=== PATIENT | male | born 1940 | race Caucasian/White ===

== ENCOUNTER → 2016-12-05 | Outpatient (CLI) | payer MEDICARE, BC ==
[2016-12-05 11:43] LABS: CH 33.1; CHCM 33.4; HCT 52.6 % (39.0-53.0); HDW 2.67; HGB 16.9 gm/dL (13.0-17.5); MCH 32.1 pg (25.0-35.0); MCHC 32.2 g/dL (31.0-37.0); MCV 99.7 fL (80.0-100.0); Mean Platelet Volume 9.1; RBC 5.28 m/uL (4.30-5.90); RDW 13.7 % (11.5-15.5)
[2016-12-05 11:50] LABS: INR 1.6 (<1.1); Prothrombin Time 15.3 sec (9.0-12.0)
[2016-12-05 12:16] LABS: Anion Gap 9 mmol/L; Blood Urea Nitrogen 22 mg/dL (9-20); Carbon Dioxide 28 mmol/L (22-30); Chloride 106 mmol/L (98-107); Non-African American GFR(MDRD) 59 (>60 ml/min/1.73 sqM); Potassium 4.9 mmol/L (3.5-5.1); Sodium 143 mmol/L (137-145)
== END | disposition home or self-care (01) ==
LOC: LABWHC1 11:26
PROVIDERS: ATTEND Internal Medicine Cardiovascular Disease
DX: I48.3 Typical atrial flutter (principal)
CPT/HCPCS: 36415; 80051; 82565; 84443; 84520; 85027; 85610

== ENCOUNTER 2017-01-30 06:15 | Day surgery (SDC) | payer MEDICARE, BC ==
[2017-01-26 15:12] VITALS: BMI 26.2
[2017-01-30] MEDS ORDERED: SODIUM CHLORIDE 0.9% 1,000 ML IV SCH ×2 (06:29→07:45)
[2017-01-30 06:51] VITALS: TEMP 98.7
[2017-01-30 07:25] LABS: Anion Gap 11 mmol/L; Blood Urea Nitrogen 20 mg/dL (9-20); Calcium 7.8 mg/dL (8.4-10.2); Carbon Dioxide 23 mmol/L (22-30); Chloride 97 mmol/L (98-107); Glucose 111 mg/dL (74-99); Non-African American GFR(MDRD) 55 (>60 ml/min/1.73 sqM); Potassium 3.7 mmol/L (3.5-5.1); Sodium 131 mmol/L (137-145)
[2017-01-30 07:27] LABS: INR 2.1 (<1.2); Prothrombin Time 19.9 sec (9.0-12.0)
[2017-01-30] MEDS ORDERED: PROPOFOL 10 MG/ML 20 ML VIAL IV ONE (07:27)
[2017-01-30] MEDS ORDERED: LIDOCAINE 1% INJ 10MG/ML (20 ML MDV) ONE (07:27)
--- NOTE | 2017-01-30 08:07 | ECHOT ---
INDICATIONS: Chronic atrial fibrillation. PROCEDURE NOTE: After obtaining informed consent, transesophageal echocardiogram was performed in left lateral position using an Omniplane probe. Local and IV sedation were obtained by the soccer commentator. FINDINGS: 1. There is no intracardiac thrombus in the left atrial appendage, left atrium, right atrium, right ventricle. 2. There is a normally functioning bioprosthetic valve in ( ) position. 3. Mitral valve is anatomically normal. There is mild to moderate ( ) mitral regurgitation noted. 4. 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 5. There is mild tricuspid regurgitation noted. 6. Aorta shows mild atherosclerotic changes. CONCLUSIONS: 1. No intracardiac thrombus. 2. Normally functioning bioprosthetic valve in ( ) position. 3. Evidence of left to right shunt by color flow doppler. [facility]
--- NOTE | 2017-01-30 08:10 | CE ---
CARDIOVERSION: After obtaining informed consent, the patient was anesthetized by the plant operator/shift supervisor and the patient underwent 200 joules of DC current shock. Following a single shock, the patient went into sinus rhythm. He was intermittently going in and out of sinus. We will obtain an EKG and see if he still remains in sinus rhythm. If he does not, then one option we have is to start him on Amiodarone and bring him back and attempt another cardioversion. I do not see the point, I will attempt another cardioversion on him. SARITA
[2017-01-30 08:14] VITALS: RESP 16
[2017-01-30] MEDS ORDERED: AMIODARONE 200 MG TAB PO SCH (09:00)
[2017-01-30 09:50] VITALS: BP 118/75; PULSE 76
== END 2017-01-30 09:34 | disposition home or self-care (01) ==
LOC: CATHCVL 06:15
PROVIDERS: ATTEND Internal Medicine Cardiovascular Disease
DX: I48.3 Typical atrial flutter (principal); I08.3 Combined rheumatic disorders of mitral, aortic and tricuspid valves; Z79.01 Long term (current) use of anticoagulants; I10 Essential (primary) hypertension; Z95.2 Presence of prosthetic heart valve; Z79.82 Long term (current) use of aspirin; Z79.899 Other long term (current) drug therapy
CPT/HCPCS: 93312; 93320; 93005; 93325; 92960; 80048; 85610; J2001; J2704

== ENCOUNTER 2018-06-04 15:15 | Inpatient (IN) | payer MEDICARE, BC ==
[2018-06-04] MEDS ORDERED: SODIUM CHLORIDE 0.9% 1,000 ML IV STA (15:42)
--- NOTE | 2018-06-04 15:46 | ED ---
Syncope HPI - General Chief Complaint: Syncope Stated Complaint: syncope Time Seen by Provider: 06/04/18 15:15 Source: patient, family, RN notes reviewed Mode of arrival: EMS Limitations: no limitations - History of Present Illness Initial Comments: This is a 77-year-old male history of heart valve replacement who was shopping with his today when he felt suddenly very tired he sat down on a bench and passed out for about a total of 2 episodes of 30 seconds each no seizure activity. No headache dizziness blurry fevers chills sweats or other symptoms. He denies any headache prior episodes of syncope no palpitations. MD Complaint: loss of consciousness - Related Data Home Medications Medication Instructions Recorded Confirmed Aspirin 325 mg PO HS 01/26/17 06/04/18 Metoprolol Tartrate [Lopressor] 25 mg PO DAILY 01/26/17 06/04/18 Warfarin [Coumadin] 5 mg PO DAILY 01/26/17 06/04/18 amLODIPine [Norvasc] 10 mg PO DAILY 01/26/17 06/04/18 Allergies Allergy/AdvReac Type Severity Reaction Status Date / Time No Known Allergies Allergy Verified 06/04/18 15:49 Review of Systems ROS Statement: Those systems with pertinent positive or pertinent negative responses have been documented in the HPI. ROS Other: All systems not noted in ROS Statement are negative. Past Medical History Past Medical History: Atrial Fibrillation, Hearing Disorder / Deafness, Hyperlipidemia, Hypertension History of Any Multi-Drug Resistant Organisms: None Reported Past Surgical History: Cardiac Valve Replacement Additional Past Surgical History / Comment(s): AORTIC (COW) VALVE REPLACED 2007. CARDIOVERSION 2007. Past Anesthesia/Blood Transfusion Reactions: No Reported Reaction Past Psychological History: No Psychological Hx Reported Smoking Status: Never smoker Past Alcohol Use History: Daily Past Drug Use History: None Reported - Past Family History Mother Family Medical History: No Reported History General Exam - General Exam Comments Initial Comments: This a well-developed well-nourished awake alert oriented times 3 male Limitations: no limitations General appearance: alert, in no apparent distress Head exam: Present: atraumatic, normocephalic, normal inspection Eye exam: Present: normal appearance, PERRL, EOMI. Absent: scleral icterus, conjunctival injection, periorbital swelling ENT exam: Present: mucous membranes dry Neck exam: Present: normal inspection. Absent: tenderness, meningismus, lymphadenopathy Respiratory exam: Present: normal lung sounds bilaterally. Absent: respiratory distress, wheezes, rales, rhonchi, stridor Cardiovascular Exam: Present: regular rate, normal rhythm, normal heart sounds. Absent: systolic murmur, diastolic murmur, rubs, gallop, clicks GI/Abdominal exam: Present: soft, normal bowel sounds. Absent: distended, tenderness, guarding, rebound, rigid Rectal exam: Present: heme (+) stool, black stool exam: Present: normal inspection Extremities exam: Present: normal inspection, full ROM, normal capillary refill. Absent: tenderness, pedal edema, joint swelling, calf tenderness Back exam: Present: normal inspection Neurological exam: Present: alert, oriented X3, CN II-XII intact Psychiatric exam: Present: normal affect, normal mood Skin exam: Present: warm, dry, intact, normal color. Absent: rash Course Vital Signs 06/04/18 06/04/18 06/04/18 15:17 15:24 16:00 Temperature 97.5 F L Pulse Rate 67 75 Respiratory 18 22 Rate Blood Pressure 111/75 117/78 O2 Sat by Pulse 95 92 L 95 Oximetry 06/04/18 06/04/18 17:00 18:00 Temperature Pulse Rate 70 69 Respiratory 20 20 Rate Blood Pressure 145/93 123/83 O2 Sat by Pulse 95 95 Oximetry - Reevaluation(s) Reevaluation #1: 06/04/18 19:19 Reevaluation patient revealed no further symptoms he did however have a black bowel movement which did test heme positive. He does have elevated BUN. She does have a prior history of GI bleeding he believes been was never diagnosed with an ulcer. EKG Findings - EKG Results: EKG: interpreted by ERMD, sinus rhythm (Sinus rhythm first-degree AV block with PACs noted rate was 65. OK interval to 46 QRS duration 108 QT since QTC 444/ 461 evidence of LVH.) Medical Decision Making - Medical Decision Making I did discuss findings with the patient and his as well as with Dr. Robison, patient will be admitted cardiology consult and serial hemoglobins. - Lab Data Result diagrams: 06/04/18 15:30 06/04/18 15:30 Lab Results 06/04/18 06/04/18 06/04/18 Range/Units 14:35 15:30 15:30 WBC 7.4 (3.8-10.6) k/uL RBC 4.22 L (4.30-5.90) m/uL Hgb 13.6 (13.0-17.5) gm/dL Hct 41.0 (39.0-53.0) % MCV 97.3 (80.0-100.0) fL MCH 32.2 (25.0-35.0) pg MCHC 33.1 (31.0-37.0) g/dL RDW 13.9 (11.5-15.5) % Plt Count 132 L (150-450) k/uL Neutrophils % 76 % Lymphocytes % 15 % Monocytes % 7 % Eosinophils % 1 % Basophils % 0 % Neutrophils # 5.6 (1.3-7.7) k/uL Lymphocytes # 1.1 (1.0-4.8) k/uL Monocytes # 0.5 (0-1.0) k/uL Eosinophils # 0.1 (0-0.7) k/uL Basophils # 0.0 (0-0.2) k/uL PT (9.0-12.0) sec INR (<1.2) APTT (22.0-30.0) sec Sodium (137-145) mmol/L Potassium (3.5-5.1) mmol/L Chloride (98-107) mmol/L Carbon Dioxide (22-30) mmol/L Anion Gap mmol/L BUN (9-20) mg/dL Creatinine (0.66-1.25) mg/dL Est GFR (CKD-EPI)AfAm (>60 ml/min/1.73 sqM) Est GFR (CKD-EPI)NonAf (>60 ml/min/1.73 sqM) Glucose (74-99) mg/dL Calcium (8.4-10.2) mg/dL Magnesium (1.6-2.3) mg/dL Total Bilirubin (0.2-1.3) mg/dL AST (17-59) U/L ALT (21-72) U/L Alkaline Phosphatase (38-126) U/L Total Creatine Kinase 65 (55-170) U/L CK-MB (CK-2) 1.1 (0.0-2.4) ng/mL CK-MB (CK-2) Rel Index 1.7 Troponin I 0.012 (0.000-0.034) ng/mL Total Protein (6.3-8.2) g/dL Albumin (3.5-5.0) g/dL Stool Occult Blood Positive (Negative) 06/04/18 06/04/18 Range/Units 15:30 15:30 WBC (3.8-10.6) k/uL RBC (4.30-5.90) m/uL Hgb (13.0-17.5) gm/dL Hct (39.0-53.0) % MCV (80.0-100.0) fL MCH (25.0-35.0) pg MCHC (31.0-37.0) g/dL RDW (11.5-15.5) % Plt Count (150-450) k/uL Neutrophils % % Lymphocytes % % Monocytes % % Eosinophils % % Basophils % % Neutrophils # (1.3-7.7) k/uL Lymphocytes # (1.0-4.8) k/uL Monocytes # (0-1.0) k/uL Eosinophils # (0-0.7) k/uL Basophils # (0-0.2) k/uL PT 15.9 H (9.0-12.0) sec INR 1.7 H (<1.2) APTT 19.4 L (22.0-30.0) sec Sodium 140 (137-145) mmol/L Potassium 4.7 (3.5-5.1) mmol/L Chloride 110 H (98-107) mmol/L Carbon Dioxide 22 (22-30) mmol/L Anion Gap 8 mmol/L BUN 33 H (9-20) mg/dL Creatinine 1.25 (0.66-1.25) mg/dL Est GFR (CKD-EPI)AfAm 64 (>60 ml/min/1.73 sqM) Est GFR (CKD-EPI)NonAf 56 (>60 ml/min/1.73 sqM) Glucose 116 H (74-99) mg/dL Calcium 8.5 (8.4-10.2) mg/dL Magnesium 1.9 (1.6-2.3) mg/dL Total Bilirubin 0.6 (0.2-1.3) mg/dL AST 21 (17-59) U/L ALT 27 (21-72) U/L Alkaline Phosphatase 45 (38-126) U/L Total Creatine Kinase (55-170) U/L CK-MB (CK-2) (0.0-2.4) ng/mL CK-MB (CK-2) Rel Index Troponin I (0.000-0.034) ng/mL Total Protein 6.0 L (6.3-8.2) g/dL Albumin 3.3 L (3.5-5.0) g/dL Stool Occult Blood (Negative) - Radiology Data Radiology results: report reviewed (Imaging reviewed no acute findings), image reviewed Critical Care Time Critical Care Time: Yes Critical Care Time: 33 visits of critical care time which includes discussed with paramedics history physical labs x-rays several reevaluation the patient. Discussed with the patient family regarding the findings discussion with the admitting physician admission orders and documentation of the above. Disposition Clinical Impression: Syncope and collapse, Upper GI bleed, Melena Disposition: ADMITTED IP TO THIS [facility] Condition: Stable Referrals: Rayo Robison MD [Primary Care Provider] - 1-2 days
[2018-06-04 16:17] LABS: Basophils % (A) 0 %; Eosinophils # (A) 0.1 k/uL (0-0.7); Eosinophils % (A) 1 %; HGB 13.6 gm/dL (13.0-17.5); Lymphocytes # (A) 1.1 k/uL (1.0-4.8); Lymphocytes % (A) 15 %; MCH 32.2 pg (25.0-35.0); MCHC 33.1 g/dL (31.0-37.0); MCV 97.3 fL (80.0-100.0); Mean Platelet Volume 8.7; Monocytes # (A) 0.5 k/uL (0-1.0); Monocytes % (A) 7 %; Neutrophils # (A) 5.6 k/uL (1.3-7.7); Neutrophils % (A) 76 %; Platelet Count 132 k/uL (150-450); RBC 4.22 m/uL (4.30-5.90); RDW 13.9 % (11.5-15.5); WBC 7.4 k/uL (3.8-10.6)
--- NOTE | 2018-06-04 16:28 | XR ---
EXAMINATION TYPE: XR chest 2V DATE OF EXAM: 06/04/2018 COMPARISON: 12/05/2011 HISTORY: Shortness of breath TECHNIQUE: Frontal and lateral views of the chest are obtained. FINDINGS: Scattered senescent parenchymal changes noted. Chronic elevation right hemidiaphragm. No evidence for infiltrate. No evidence for atelectasis. Heart size is enlarged. Mediastinal structures are stable and grossly unremarkable. No evidence for hilar prominence. Degenerative changes dorsal spine. IMPRESSION: 1. No evidence for acute pulmonary disease.
[2018-06-04 16:33] LABS: Albumin 3.3 g/dL (3.5-5.0); Calcium 8.5 mg/dL (8.4-10.2); Magnesium 1.9 mg/dL (1.6-2.3); Potassium 4.7 mmol/L (3.5-5.1); Total Bilirubin 0.6 mg/dL (0.2-1.3)
[2018-06-04 16:39] LABS: INR 1.7 (<1.2); Prothrombin Time 15.9 sec (9.0-12.0)
[2018-06-04 16:46] LABS: Creatine Kinase MB 1.1 ng/mL (0.0-2.4); Troponin I 0.012 ng/mL (0.000-0.034)
[2018-06-04 16:47] LABS: Partial Thromboplastin Time 19.4 sec (22.0-30.0)
--- NOTE | 2018-06-04 17:36 | CT ---
EXAMINATION: CT brain wo con DATE AND TIME: 06/04/2018 4:56 PM CLINICAL INDICATION: syncope TECHNIQUE: Standard departmental protocol. COMPARISON: None. FINDINGS: The calvarium is intact. There is no intracranial hemorrhage. There is no intracranial mass or mass effect. No definite new intra-axial or extra-axial attenuation defect. The paranasal sinuses, middle ear cavities, and mastoid sinus air cells are clear. The orbits are unremarkable. IMPRESSION: NO ACUTE PROCESS.
[2018-06-04] MEDS ORDERED: PHYTONADIONE ORAL 5 MG/5 ML ORAL.SYRG PO STA (19:22)
[2018-06-04] MEDS ORDERED: NALOXONE 0.4 MG/ML 1 ML VIAL IV PRN (19:23)
[2018-06-04] MEDS ORDERED: PANTOPRAZOLE 40 MG/10 ML VIAL IVP SCH (19:30)
--- NOTE | 2018-06-04 19:44 | P.HPIM ---
History of Present Illness Chief complaint Weakness and syncopal episode. History of present illness The patient is a 77-year-old gentleman who apparently was shopping earlier with his at a local store when he became somewhat weak and lightheaded and went to sit down. When he sat down he leaned against someone sitting next to him and according to his when she came over he was hard to arouse eventually he did arouse and acknowledged her but then once again passed out for 20-30 seconds. There is no evidence of any seizure activity or shortness of breath or chest pain associated with this. No nausea or vomiting. No slurred speech or focal weakness was noted. The had the EMS called and they transported the patient to adhere to the emergency room. Here in the emergency room the patient is generally felt better but did pass melanotic dark stool that was positive for occult blood. Patient had ate well that morning and felt normal. Further questioning reveals the patient has continued somewhat frequent alcohol intake consisting of several beers and shots in the evenings. Patient is also on aspirin and warfarin. Past medical history Patient has history of aortic bovine valve replacement in approximately 2007. He also has history of paroxysmal atrial fibrillation and did have a cardioversion performed in 2018. Patient is remaining on Coumadin and aspirin therapy. Patient also has history of hyperlipidemia and hypertension. Patient is followed by cardiology locally. No definite history of myocardial infarction or diabetes or stroke. Patient did have a upper endoscopy and colonoscopy approximately 10 years ago showing some focal gastritis and a few scattered diverticula but no other abnormalities at that time. Home medications Aspirin 325 mg daily Metoprolol 25 mg daily Coumadin 5 mg daily Amlodipine 10 mg daily No known ALLERGIES Review of systems As mentioned in the history of present illness. Patient denies any headaches or visual disturbances. No focal weakness noted. No slurred speech. No chest pain or unusual shortness of breath. Denies any abdominal pain. No nausea or vomiting. No new urinary or bowel symptoms although he does have some frequent urination. His bowel see states have been normal until the last one in the emergency room which showed melena and positive for occult blood. No unusual distal edema. No previous syncopal episodes or evidence of any seizures. No urinary incontinence. Family history Father had lung cancer. Also father had rheumatoid arthritis. Social history Alcohol usage as mentioned above. No history of smoking. Patient is presently retired and lives locally with his . Physical examination Reveals a pleasant gentleman lying flat on the stretcher in the emergency room. Vital signs reveal a pulse of 69 with respirations 20 and blood pressure 123/ 83. He is 95% saturated on 2 L. Temperature 97.5 Head is atraumatic. Extraocular movements are intact. Pupils are equal and reactive. Neck is not stiff. No adenopathy or bruits detected. No thyromegaly. Lungs are clear to auscultation. Heart slightly irregular with rate control. No definite murmurs or rubs appreciated. Abdomen is somewhat protuberant. Generally though soft and nontender without rebound, guarding or masses detected. No definite organomegaly. Scrotal and rectal exam deferred. No unusual edema. Neurologically he is alert and oriented. Cranial nerves intact. No focal weakness noted. Laboratory White count is 7.4 with a hemoglobin 13.6 and a platelet count of 132. INR was 1.7 with a PTT of 19.4. Sodium was 140 with potassium 4.7. CO2 content of 22. BUN is elevated at 33 with a creatinine 1.25 given him a GFR of 56. Blood sugar 116. Liver function tests were good. Albumin though slightly low at 3.3. Troponin was 0.012 with a CK of 65 Stool for occult blood is positive. And appearance in the ER was melanotic. Chest x-ray: No evidence of acute pulmonary disease CT of the brain: No acute process. EKG, showed a sinus rhythm with a first-degree AV block. PACs noted. Apparent hypertrophy with repolarization abnormalities noted. No definite ischemic changes noted. Impressions: 1. Likely syncopal episode related to upper GI bleeding and acute blood loss with guaiac positive stool that was melanotic. Cannot completely rule out arrhythmia other cardiac cause but so far no definite evidence at this time. 2. Patient with history of paroxysmal atrial fibrillation on Coumadin and aspirin. 3. Patient also has history of bovine aortic valve replacement 10 years ago. 4. Patient does have history of rather steady alcohol intake as described above possibly contributing to #1. This was discussed with patient and need for abstinence to prevent further alcohol-related problems discussed with patient along with spouse and daughter. 5. Hypertension 6. Hyperlipidemia Plans At this point we will hold aspirin and Coumadin. Small dose of vitamin K orally given at this time. Protonix will be added. Clear liquids and nothing by mouth for morning. Consults with gastroenterology and cardiology have been ordered. Follow-up blood testing also ordered for the morning including CBC, BMP, INR. Further recommendations and treatment pending clinical response and results of above. Past Medical History Past Medical History: Atrial Fibrillation, Hearing Disorder / Deafness, Hyperlipidemia, Hypertension History of Any Multi-Drug Resistant Organisms: None Reported Past Surgical History: Cardiac Valve Replacement Additional Past Surgical History / Comment(s): AORTIC (COW) VALVE REPLACED 2007. CARDIOVERSION 2007. Past Anesthesia/Blood Transfusion Reactions: No Reported Reaction Past Psychological History: No Psychological Hx Reported Smoking Status: Never smoker Past Alcohol Use History: Daily Past Drug Use History: None Reported - Past Family History Mother Family Medical History: No Reported History Medications and Allergies Home Medications Medication Instructions Recorded Confirmed Type Aspirin 325 mg PO HS 01/26/17 06/04/18 History Metoprolol Tartrate [Lopressor] 25 mg PO DAILY 01/26/17 06/04/18 History Warfarin [Coumadin] 5 mg PO DAILY 01/26/17 06/04/18 History amLODIPine [Norvasc] 10 mg PO DAILY 01/26/17 06/04/18 History Allergies Allergy/AdvReac Type Severity Reaction Status Date / Time No Known Allergies Allergy Verified 06/04/18 15:49 Physical Exam Vitals: Vital Signs Temp Pulse Resp BP Pulse Ox 06/04/18 18:00 69 20 123/83 95 06/04/18 17:00 70 20 145/93 95 06/04/18 16:00 75 22 117/78 95 06/04/18 15:24 92 L 06/04/18 15:17 97.5 F L 67 18 111/75 95 Intake and Output 06/04/18 06/04/18 06/04/18 06:59 14:59 22:59 Other: Weight 86.183 kg Results CBC & Chem 7: 06/04/18 15:30 06/04/18 15:30 Labs: Abnormal Lab Results - Last 24 Hours (Table) 06/04/18 06/04/18 06/04/18 Range/Units 15:30 15:30 15:30 RBC 4.22 L (4.30-5.90) m/uL Plt Count 132 L (150-450) k/uL PT 15.9 H (9.0-12.0) sec INR 1.7 H (<1.2) APTT 19.4 L (22.0-30.0) sec Chloride 110 H (98-107) mmol/L BUN 33 H (9-20) mg/dL Glucose 116 H (74-99) mg/dL Total Protein 6.0 L (6.3-8.2) g/dL Albumin 3.3 L (3.5-5.0) g/dL
[2018-06-04] MEDS: PANTOPRAZOLE 40 MG/10 ML VIAL IVP SCH (20:47)
[2018-06-04] MEDS: SODIUM CHLORIDE 0.9% 1,000 ML IV SCH (20:50)
[2018-06-04 21:50] LABS: Creatine Kinase 58 U/L (55-170)
[2018-06-04 22:01] LABS: Creatine Kinase MB 1.2 ng/mL (0.0-2.4); Troponin I <0.012 ng/mL (0.000-0.034)
[2018-06-05 03:45] LABS: Calcium 8.4 mg/dL (8.4-10.2); Potassium 4.4 mmol/L (3.5-5.1)
[2018-06-05 03:47] LABS: Basophils % (A) 0 %; Eosinophils % (A) 1 %; HCT 39.7 % (39.0-53.0); HGB 12.7 gm/dL (13.0-17.5); Lymphocytes # (A) 0.9 k/uL (1.0-4.8); Lymphocytes % (A) 15 %; MCH 32.2 pg (25.0-35.0); MCV 100.6 fL (80.0-100.0); Macrocytosis Slight; Mean Platelet Volume 10.5; Monocytes # (A) 0.5 k/uL (0-1.0); Monocytes % (A) 8 %; Neutrophils # (A) 4.5 k/uL (1.3-7.7); Neutrophils % (A) 75 %; Platelet Count 129 k/uL (150-450); RBC 3.95 m/uL (4.30-5.90); RDW 14.4 % (11.5-15.5); WBC 6.1 k/uL (3.8-10.6)
[2018-06-05 04:19] LABS: Creatine Kinase MB 1.2 ng/mL (0.0-2.4); Troponin I 0.016 ng/mL (0.000-0.034)
--- NOTE | 2018-06-05 06:31 | P.PN ---
Progress Note - Text The patient is a 77-year-old gentleman who presented yesterday after at least 2 episodes of apparently passing out when he was shopping with his yesterday. Subsequently though he has also had 2 melanotic stools. Guaiac positive in the emergency room. He denies any chest pain or shortness of breath. Patient is easily arouse this morning. Patient does have history of aortic bovine valve replacement approximately 10 years ago and also paroxysmal atrial fibrillation. He was on Coumadin and aspirin. Those have presently been held. The latest vital signs reveal temperature of 98.1, pulse of 64 and respirations 18. Blood pressure 126/69 and he is 95% saturated on room air. Lungs are generally clear. Heart tones are somewhat irregular but rate is controlled. Abdomen is nontender. No unusual edema. He is alert and oriented without focal cranial nerves or peripheral deficits. Laboratory Initial hemoglobin was 13.6 and a decreased down at about 3:00 in the morning to 12.7. Platelets counts are 129. BUN has risen to 51 with creatinine 1.24. Increase of BUN likely related to upper GI bleeding. Troponins 3 of been unremarkable along with CKs. Impressions and plans Overall this gentleman with syncopal episodes yesterday afternoon. Appears to have some type of upper GI bleeding. Further hemoglobin is pending this morning. We'll continue patient nothing by mouth this morning pending evaluation by cardiology and gastroenterology. Patient received 1 dose of vitamin K yesterday and repeat INR is pending this morning.
--- NOTE | 2018-06-05 09:41 | P.CONS ---
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 Patient states he was walking around for over half an hour felt very weak fatigued sent on a bench and was passed out but did not feel lightheaded. Additionally yesterday he passed 3 to 4 black colored bowel movements without abdominal pain. No history of GI bleed or peptic ulcer disease. No history of EGD. No excessive usage of NSAIDs or aspirin. Colonoscopy 6 years ago to his memory unremarkable. He has a history of drinking some form of alcohol on a daily basis whether to few beers, round, or wine. Admission hemoglobin 13.6 present in 12.7. MCV 100.6. Platelet 129. INR 1.7. Coumadin is on hold. BUN 33 increased to 51 today. Creatinine 1.2. LFTs within normal limits. Heme stool positive. Review of Systems Constitutional: Denies fever, chills, sweats, weight gain, or loss. HEENT: Negative for migraines, blurred vision or loss, earaches, drainage, tinnitus, oral mucosal lesions, dysphagia, or odynophagia. Cardiac: Negative for chest pain, arrhythmias, or palpitation. Respiratory: Negative for shortness of breath, hemoptysis, cough, or sputum production. Gastrointestinal: See HPI for pertinent findings. Genitourinary: Negative for hematuria, urgency, frequency, polyuria, dysuria, or penile discharge. Musculoskeletal: Negative for muscle aches, swelling, arthritis, and arthralgias. Neurologic: Negative for stroke or TIA. Endocrine: Negative for thyroid problems. Skin: Negative for rash or itching. Psychiatric: Negative history for depression and anxiety Past Medical History Past Medical History: Atrial Fibrillation, Hearing Disorder / Deafness, Hyperlipidemia, Hypertension History of Any Multi-Drug Resistant Organisms: None Reported Past Surgical History: Cardiac Valve Replacement Additional Past Surgical History / Comment(s): AORTIC (tissue-COW) VALVE REPLACED 2007. CARDIOVERSION 2007.sharon, colonoscopy Past Anesthesia/Blood Transfusion Reactions: No Reported Reaction Smoking Status: Never smoker - Past Family History Mother Family Medical History: No Reported History Additional Family Medical History / Comment(s): " from old age" Father Family Medical History: No Reported History Additional Family Medical History / Comment(s): " from old age" Medications and Allergies Home Medications Medication Instructions Recorded Confirmed Type Aspirin 325 mg PO HS 01/26/17 06/04/18 History Metoprolol Tartrate [Lopressor] 25 mg PO DAILY 01/26/17 06/04/18 History Warfarin [Coumadin] 5 mg PO DAILY 01/26/17 06/04/18 History amLODIPine [Norvasc] 10 mg PO DAILY 01/26/17 06/04/18 History Allergies Allergy/AdvReac Type Severity Reaction Status Date / Time No Known Allergies Allergy Verified 06/04/18 15:49 Physical Exam Vitals: Vital Signs Temp Pulse Pulse Resp BP BP BP 06/05/18 04:00 98.1 F 64 18 126/69 06/05/18 02:00 118/73 06/05/18 00:00 98.0 F 103 H 18 117/57 06/04/18 21:49 98.0 F 68 16 119/80 06/04/18 18:00 69 20 123/83 06/04/18 17:00 70 20 145/93 06/04/18 16:00 75 22 117/78 06/04/18 15:24 06/04/18 15:17 97.5 F L 67 18 111/75 BP BP Pulse Ox 06/05/18 04:00 95 06/05/18 02:00 120/74 149/74 06/05/18 00:00 94 L 06/04/18 21:49 95 06/04/18 18:00 95 06/04/18 17:00 95 06/04/18 16:00 95 06/04/18 15:24 92 L 06/04/18 15:17 95 Intake and Output 06/04/18 06/05/18 06/05/18 22:59 06:59 14:59 Intake Total 0 Balance 0 Intake: Oral 0 Other: # Voids 1 # Bowel Movements 1 Weight 86.183 kg 87.4 kg General appearance: The patient is alert, oriented, in no acute distress. HET: Head is normocephalic and atraumatic. Pupils are equal and reactive. Oropharynx is clear without lesions. Neck: Supple without lymphadenopathy. Trachea midline. Heart: S1 S2. Regular rate and rhythm. Lungs: No crackles or wheezes are heard. Abdomen: Soft, nontender, nondistended with bowel sounds. No peritoneal signs. No palpable organomegaly or masses. Extremities: Normal skin color and turgor. No cyanosis, rash, ulceration, clubbing, or edema. Radial and pedal pulses are 2/4 bilaterally. Neurological: No focal deficits. Strength and sensation are grossly intact. Results CBC & Chem 7: 06/05/18 03:18 06/05/18 03:18 Labs: Abnormal Lab Results - Last 24 Hours (Table) 06/04/18 06/04/18 06/04/18 Range/Units 15:30 15:30 15:30 RBC 4.22 L (4.30-5.90) m/uL Hgb (13.0-17.5) gm/dL MCV (80.0-100.0) fL Plt Count 132 L (150-450) k/uL Lymphocytes # (1.0-4.8) k/uL PT 15.9 H (9.0-12.0) sec INR 1.7 H (<1.2) APTT 19.4 L (22.0-30.0) sec Chloride 110 H (98-107) mmol/L BUN 33 H (9-20) mg/dL Glucose 116 H (74-99) mg/dL Total Creatine Kinase (55-170) U/L Total Protein 6.0 L (6.3-8.2) g/dL Albumin 3.3 L (3.5-5.0) g/dL 06/05/18 06/05/18 06/05/18 Range/Units 03:18 03:18 03:18 RBC 3.95 L (4.30-5.90) m/uL Hgb 12.7 L (13.0-17.5) gm/dL MCV 100.6 H (80.0-100.0) fL Plt Count 129 L (150-450) k/uL Lymphocytes # 0.9 L (1.0-4.8) k/uL PT (9.0-12.0) sec INR (<1.2) APTT (22.0-30.0) sec Chloride 110 H (98-107) mmol/L BUN 51 H (9-20) mg/dL Glucose 100 H (74-99) mg/dL Total Creatine Kinase 50 L (55-170) U/L Total Protein (6.3-8.2) g/dL Albumin (3.5-5.0) g/dL Assessment and Plan (1) Melena Narrative/Plan: 77-year-old male admitted with acute GI bleed macrocytic anemia component of acute blood loss with symptoms of melena near syncope collapse with a history of daily alcohol consumption positive Hemoccult and elevated BUN. Differentials include but not excluded possible peptic ulcer disease possible esophagitis gastritis hypertensive portal gastropathy underlying esophageal gastric varices, underlying small bowel colonic source cannot be excluded. Current Visit: Yes Status: Acute Code(s): K92.1 - MELENA SNOMED Code(s): 7456507 (2) Syncope and collapse Current Visit: Yes Status: Acute Code(s): R55 - SYNCOPE AND COLLAPSE SNOMED Code(s): 221118527 (3) Upper GI bleed Current Visit: Yes Status: Acute Code(s): K92.2 - GASTROINTESTINAL HEMORRHAGE, UNSPECIFIED SNOMED Code(s): 94330775 (4) Warfarin-induced coagulopathy Current Visit: Yes Status: Acute Code(s): D68.32 - HEMORRHAGIC DISORD D/T EXTRINSIC CIRCULATING ANTICOAGULANTS; T45.515A - ADVERSE EFFECT OF ANTICOAGULANTS, INITIAL ENCOUNTER SNOMED Code(s): 54289040 (5) Thrombocytopenia Narrative/Plan: Possible underlying alcohol liver disease Current Visit: Yes Status: Acute Code(s): D69.6 - THROMBOCYTOPENIA, UNSPECIFIED SNOMED Code(s): 325829316 (6) Macrocytosis Current Visit: Yes Status: Acute Code(s): D75.89 - OTHER SPECIFIED DISEASES OF BLOOD AND BLOOD-FORMING ORGANS SNOMED Code(s): 929672020 Plan: 1. EGD. 2. Hold Coumadin. 3. Protonix 40 mg twice daily. 4. CBC monitoring. 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 The patient has indicated understanding and acceptance of the risks and procedures discussed. Thank you for this kind referral and the opportunity to participate in the care of your patient. This consultation was discussed with Dr. Crawford. The impression and plan of care have been directed as dictated.
[2018-06-05] MEDS: METOPROLOL TARTRATE 25 MG TAB PO SCH (09:57)
[2018-06-05] MEDS: PANTOPRAZOLE 40 MG/10 ML VIAL IVP SCH ×2 (09:58→20:53)
[2018-06-05 12:51] LABS: INR 1.6 (<1.2); Prothrombin Time 14.5 sec (9.0-12.0)
[2018-06-05] MEDS ORDERED: PROPOFOL 10 MG/ML 20 ML VIAL IV ONE (13:20)
[2018-06-05] MEDS ORDERED: LACTATED RINGERS 1,000 ML IV ONE (13:20)
[2018-06-05] MEDS ORDERED: LIDOCAINE 1% INJ 10MG/ML (20 ML MDV) ONE (13:20)
--- NOTE | 2018-06-05 13:45 | P.PCN ---
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 He had passed 3 to 4 black colored bowel movements without abdominal pain. No history of GI bleed or peptic ulcer disease. No history of EGD. No excessive usage of NSAIDs or aspirin. Admission hemoglobin 13.6 present in 12.7. Heme stool positive. PROCEDURE PERFORMED: Esophagogastroduodenoscopy with biopsy. PREOPERATIVE DIAGNOSIS: Anemia of acute blood loss, melena. ESTIMATED BLOOD LOSS: Minimal. IV sedation per anesthesia. PROCEDURE: After informed consent was obtained, the patient was brought into the endoscopy unit. IV sedation was administered by Anesthesia under continuous monitoring. Initially the Olympus GIF-190 video endoscope was inserted into the mouth. Esophagus intubated without any difficulty. It was gradually advanced into the stomach and duodenum and carefully examined. The bulb appeared erythematous with mild scattered erythema noted suggestive of duodenitis and the second part of the duodenum appeared normal. The scope at this time was withdrawn to the stomach, adequately insufflated with air, and upon careful examination, mucosa of the antrum, body, cardia and the fundus was significant for mild scattered erythema which was worse in the antrum and pylorus with multiple superficial ulcers noted in the area of the antrum and pylorus with ulcer biopsies taken. The scope was then withdrawn into the esophagus. The GE junction was located at 43 cm from the incisors. The esophagus appeared normal. There were no erosions or ulcerations seen and the patient tolerated the procedure well. IMPRESSION: 1. Gastritis, multiple superficial gastric ulcers with no high-risk stigmata or active bleeding which were biopsied, duodenitis. 2. No active bleeding or high risk stigmata for recurrent bleeding. RECOMMENDATIONS: The findings of this examination were discussed with the patient his daughter. Okay for full liquid diet as tolerated. Protonix 40 mg twice daily. Follow up with gastroenterology in 2 weeks for repeat EGD to check for ulcer healing. Okay to resume Coumadin tomorrow.
--- NOTE | 2018-06-05 14:29 | P.CRDCN ---
History of Present Illness Consult date: 06/05/18 Requesting physician: Cecilio Hernandez Consult reason: sycope Chief complaint: Syncope History of present illness: This is 77-year-old gentleman who follows with Dr. Arrieta in the office. He has a known history of hypertension, history of tissue aortic valve replacement, atrial flutter, typical, nonsmoker, significant EtOH use, he states that he drinks 3-4 beers a day as well as daily whiskey. According to the patient, he states he was shopping in [place] and all of a sudden became extremely tired he states that he had to sit down because he felt as though he may pass out. Upon sitting down he states that he fell against a gentleman sitting next to him putting his head and shoulder, according to his he did pass out for a few seconds. Because of this EMS was called. Patient states he had no chest pain no palpitations prior to this happening. Upon arrival here patient also states that he had a couple black stools and for this reason a GI consultation was requested. CAT scan of the brain on arrival did not show any acute process. Chest x-ray did not reveal any evidence of acute pulmonary process. EKG shows normal sinus rhythm with first-degree AV block, PACs, and ST -T wave changes noted in the lateral leads. Blood pressure 122/70 heart rate in the 90s to low 100s. He is currently in an atrial fibrillation. White blood cell count on arrival 7.4, 6.1 this morning, hemoglobin 13.6, 12.7 this morning. Platelet count 129. INR 1.6, sodium 140, potassium 4.4, BUN 51, creatinine 1.2. Troponin 0.012,012, 0.016. Stool for occult blood is positive. She underwent an EGD today which showed gastritis with multiple superficial gastric ulcers with no high-risk stigmata for active bleeding, these were biopsied. No active bleeding on high-risk stigmata for recurrent bleeding. Consent was given to resume Coumadin as at home, patient was started on Protonix. At the time of my examination, patient felt well, denies any dizziness or lightheadedness, no palpitations. Past Medical History Past Medical History: Atrial Fibrillation, Hearing Disorder / Deafness, Hyperlipidemia, Hypertension History of Any Multi-Drug Resistant Organisms: None Reported Past Surgical History: Cardiac Valve Replacement Additional Past Surgical History / Comment(s): AORTIC (tissue-COW) VALVE REPLACED 2007. CARDIOVERSION 2007.sharon, colonoscopy Past Anesthesia/Blood Transfusion Reactions: No Reported Reaction Smoking Status: Never smoker - Past Family History Mother Family Medical History: No Reported History Additional Family Medical History / Comment(s): " from old age" Father Family Medical History: No Reported History Additional Family Medical History / Comment(s): " from old age" Medications and Allergies Home Medications Medication Instructions Recorded Confirmed Type Aspirin 325 mg PO HS 01/26/17 06/04/18 History Metoprolol Tartrate [Lopressor] 25 mg PO DAILY 01/26/17 06/04/18 History Warfarin [Coumadin] 5 mg PO DAILY 01/26/17 06/04/18 History amLODIPine [Norvasc] 10 mg PO DAILY 01/26/17 06/04/18 History Allergies Allergy/AdvReac Type Severity Reaction Status Date / Time No Known Allergies Allergy Verified 06/04/18 15:49 Physical Exam Vitals: Vital Signs Temp Pulse Pulse Resp BP BP BP 06/05/18 08:00 97.8 F 121 H 18 123/73 06/05/18 04:00 98.1 F 64 18 126/69 06/05/18 02:00 118/73 06/05/18 00:00 98.0 F 103 H 18 117/57 06/04/18 21:49 98.0 F 68 16 119/80 06/04/18 18:00 69 20 123/83 06/04/18 17:00 70 20 145/93 06/04/18 16:00 75 22 117/78 06/04/18 15:24 06/04/18 15:17 97.5 F L 67 18 111/75 BP BP Pulse Ox 06/05/18 08:00 96 06/05/18 04:00 95 06/05/18 02:00 120/74 149/74 06/05/18 00:00 94 L 06/04/18 21:49 95 06/04/18 18:00 95 06/04/18 17:00 95 06/04/18 16:00 95 06/04/18 15:24 92 L 06/04/18 15:17 95 Intake and Output 06/04/18 06/05/18 06/05/18 22:59 06:59 14:59 Intake Total 200 Balance 200 Intake: IV 200 Oral 0 Other: # Voids 1 # Bowel Movements 1 Weight 86.183 kg 87.4 kg PHYSICAL EXAMINATION: GENERAL: 77-year-old gentleman in no acute distress at the time of my examination HEENT: Head is atraumatic, normocephalic. Pupils equal, round. Sclera anicteric. Conjunctiva are clear. Mucous membranes of the mouth are moist. Neck is supple. There is no elevated jugular venous pressure. No carotid bruit is heard. HEART EXAMINATION: R S1 and S2 irregularly irregular CHEST EXAMINATION: Lungs are clear to auscultation and precussion. No chest wall tenderness is noted on palpation or with deep breathing. ABDOMEN: Soft, nontender. Bowel sounds are heard. No organomegaly noted. EXTREMITIES: 2+ peripheral pulses with no evidence of peripheral edema and no calf tenderness noted. NEUROLOGIC patient is awake, alert and oriented X3. . Results 06/05/18 03:18 06/05/18 03:18 Cardiac Enzymes 06/04/18 06/04/18 06/04/18 Range/Units 15:30 15:30 21:20 AST 21 (17-59) U/L CK-MB (CK-2) 1.1 1.2 (0.0-2.4) ng/mL Troponin I 0.012 <0.012 (0.000-0.034) ng/mL 06/05/18 Range/Units 03:18 AST (17-59) U/L CK-MB (CK-2) 1.2 (0.0-2.4) ng/mL Troponin I 0.016 (0.000-0.034) ng/mL Coagulation 06/04/18 06/05/18 Range/Units 15:30 12:24 PT 15.9 H 14.5 H (9.0-12.0) sec APTT 19.4 L (22.0-30.0) sec CBC 06/04/18 06/05/18 Range/Units 15:30 03:18 WBC 7.4 6.1 (3.8-10.6) k/uL RBC 4.22 L 3.95 L (4.30-5.90) m/uL Hgb 13.6 12.7 L (13.0-17.5) gm/dL Hct 41.0 39.7 (39.0-53.0) % Plt Count 132 L 129 L (150-450) k/uL Comprehensive Metabolic Panel 06/04/18 06/05/18 Range/Units 15:30 03:18 Sodium 140 140 (137-145) mmol/L Potassium 4.7 4.4 (3.5-5.1) mmol/L Chloride 110 H 110 H (98-107) mmol/L Carbon Dioxide 22 24 (22-30) mmol/L BUN 33 H 51 H (9-20) mg/dL Creatinine 1.25 1.24 (0.66-1.25) mg/dL Glucose 116 H 100 H (74-99) mg/dL Calcium 8.5 8.4 (8.4-10.2) mg/dL AST 21 (17-59) U/L ALT 27 (21-72) U/L Alkaline Phosphatase 45 (38-126) U/L Total Protein 6.0 L (6.3-8.2) g/dL Albumin 3.3 L (3.5-5.0) g/dL Current Medications Generic Name Dose Route Start Last Admin Trade Name Freq PRN Reason Stop Dose Admin Sodium Chloride 1,000 mls @ 20 mls/hr 06/04/18 19:30 06/04/18 20:50 Saline 0.9% IV 20 mls/hr .Q24H ERICKA Administration Metoprolol Tartrate 25 mg 06/05/18 09:00 06/05/18 09:57 Lopressor PO 25 mg DAILY ERICKA Administration Naloxone HCl 0.2 mg 06/04/18 19:23 Narcan IV Q2M PRN Opioid Reversal Pantoprazole Sodium 40 mg 06/04/18 19:45 06/05/18 09:58 Protonix IVP 40 mg BID ERICKA Administration Intake and Output 06/04/18 06/05/18 06/05/18 22:59 06:59 14:59 Intake Total 200 Balance 200 Intake: IV 200 Oral 0 Other: # Voids 1 # Bowel Movements 1 Weight 86.183 kg 87.4 kg 06/05/18 03:18 06/05/18 03:18 EKG Interpretations (text) EKG shows a normal sinus rhythm with first-degree AV block and ST-T wave changes noted in the lateral leads. Assessment and Plan Plan: Assessment and plan #1 syncope, rule out cardiac causes. Patient was noted to have black stools on arrival here, EGD was performed which revealed gastritis with some ulcerated areas, nothing to suggest any active bleeding. #2 atrial fibrillation, paroxysmal. He has history of typical atrial flutter with prior attempted cardioversion. Patient is on Coumadin for anticoagulation. #3 hypertension #4 significant EtOH use #5 history of tissue aortic valve replacement in 2007 Plan We'll obtain an echocardiogram with Doppler study. Echo orthostatic blood pressure and heart rate every shift. Continue to monitor for any significant tachycardia or bradycardia arrhythmias. If nothing significant here is found to cause the patient's syncope, we would recommend that he wear a monitor as an outpatient. He has also been advised strongly regarding the importance of ETOH cessation. DNP note has been reviewed, I agree with a documented findings and plan of care. Patient was seen and examined.
[2018-06-05 17:22] LABS: Appearance,Urine Clear (Clear); Bilirubin,Urine Negative (Negative); Blood,Urine Negative (Negative); Color,Urine Yellow; Glucose,Urine (UA) 1+ (Negative); Ketones,Urine Negative (Negative); Leukocyte Esterase,Urine Moderate (Negative); Mucus,Urine Rare /hpf; Nitrite,Urine Negative (Negative); PH, Urine 5.5 (5.0-8.0); Protein,Urine Negative (Negative); RBC,Urine <1 /hpf (0-5); Specific Gravity,Urine 1.019 (1.001-1.035); Squamous Epithelial Cell,Urine 1 /hpf (0-4); Urobilinogen,Urine <2.0 mg/dL (<2.0); WBC,Urine 3 /hpf (0-5)
[2018-06-05] MEDS ORDERED: WARFARIN 5 MG TAB PO ONE (18:00)
[2018-06-05] MEDS: SODIUM CHLORIDE 0.9% 1,000 ML IV SCH (20:00)
[2018-06-06 07:12] LABS: INR 1.4 (<1.2); Prothrombin Time 13.3 sec (9.0-12.0)
--- NOTE | 2018-06-06 08:13 | P.DS ---
Providers Date of admission: 06/04/18 19:23 This is a discharge summary: Patient is a 77-year-old gentleman who presented with 2 days previous with syncopal episodes, please refer to history physical. Patient was found in the emergency room to pass dark melanotic stool that was guaiac positive. The patient was admitted and monitored, consults obtained with cardiology and gastroenterology and please refer to their notes. The patient was on Coumadin and aspirin which were held and he was placed on proton pump inhibitors. Laboratory Initial INR was 1.7. Hemoglobin decreased down to 12.7 with a white count of 6.1 and a platelet count of 129. BUN loreto to 51 with a creatinine of 1.24 given him a GFR 56. Electrolytes were unremarkable. Troponins were normal 3. Glucose 100. EKG showed a sinus rhythm with first-degree AV block and premature atrial contractions. Repolarization abnormalities were present laterally. No acute changes were seen on chest x-ray and CAT scan. Patient underwent upper gastroscopy Findings: gastritis and multiple superficial gastric ulcers with no evidence of active bleeding were seen. Also duodenitis. It was felt patient can resume his Coumadin. Continue on his Protonix 40 mg twice a day. Patient's diet was resumed. He is up and ambulating without difficulties. Vital signs are stable. He has had no further melanotic stools. Plans are for discharge today. Cardiology to arrange for outpatient surveillance system monitor. He can resume his Coumadin at 5 mg daily. Continue amlodipine 10 mg daily Continue metoprolol tartrate 25 mg daily Unless further recommended per cardiology, recommended to hold aspirin for 2 weeks at least. Protonix 40 mg twice a day will be sent to his [facility] pharmacy in [place] Patient to follow-up with myself next week in the office. He is to follow-up with Dr. Crawford gastroenterology in 2 weeks. Also follow-up with cardiology. He does see Dr. Mauricio, cardiology. And outpatient monitoring recommended. He is to return to the ER if any further episodes or if dark melanotic stool returns. Discharge diagnoses 1. Acute gastric ulcers with upper GI bleeding and melanotic stools with drop in hemoglobin. Associated with syncopal episodes as described in history and physical. 2. History of bovine aortic valve replacement in 2007. 3. Paroxysmal atrial fibrillation with previous cardioversions performed. On Coumadin and aspirin. 4. Hyperlipidemia 5. Hypertension 6. History of frequent alcohol intake. It was recommended on multiple occasions for patient to refrain from alcohol intake. Attending physician: Rayo Robison Consults: 06/04/18 19:15 Consult Physician Urgent Consulting Provider: Keisha Mauricio Consult Reason/Comments: GI bleed Do you want consulting provider notified?: Yes, Notify in am 06/04/18 19:17 Consult Physician Routine Consulting Provider: Cristobal Wren Consult Reason/Comments: syncope Do you want consulting provider notified?: Yes, Notify in am Primary care physician: Rayo Robison Patient Condition at Discharge: Stable Plan - Discharge Summary Discharge Rx Participant: No New Discharge Prescriptions: No Action Warfarin [Coumadin] 5 mg PO DAILY amLODIPine [Norvasc] 10 mg PO DAILY Aspirin 325 mg PO HS Metoprolol Tartrate [Lopressor] 25 mg PO DAILY Discharge Medication List Aspirin 325 mg PO HS 01/26/17 [History] Metoprolol Tartrate [Lopressor] 25 mg PO DAILY 01/26/17 [History] Warfarin [Coumadin] 5 mg PO DAILY 01/26/17 [History] amLODIPine [Norvasc] 10 mg PO DAILY 01/26/17 [History] Follow up Appointment(s)/Referral(s): Rayo Robison MD [Primary Care Provider] - 06/13/18 11:00 am ()
[2018-06-06] MEDS: METOPROLOL TARTRATE 25 MG TAB PO SCH (08:21)
[2018-06-06] MEDS: PANTOPRAZOLE 40 MG/10 ML VIAL IVP SCH (08:21)
[2018-06-06 08:26] VITALS: BP 123/63; PULSE 97; RESP 18; TEMP 96.9
--- NOTE | 2018-06-06 11:11 | P.PN ---
Subjective Progress Note Date: 06/06/18 Principal diagnosis: GI bleed melena Admit with near syncopal episode melena status post EGD with findings of multiple superficial gastric ulcers no active bleeding felt to be the source of melena. Feels well this morning. Tolerating regular diet. Discharge planned today. Objective - Vital Signs Vital signs: Vital Signs Temp 96.9 F L 06/06/18 08:00 Pulse 97 06/06/18 08:00 Resp 18 06/06/18 08:00 BP 123/63 06/06/18 08:00 Pulse Ox 97 06/06/18 08:00 Intake & Output 06/05/18 06/06/18 06/06/18 18:59 06:59 18:59 Intake Total 440 240 Output Total 50 800 Balance 390 -560 Weight 85.2 kg Intake: IV 200 Oral 240 240 Output: Urine 50 800 Other: Voiding Method Toilet Toilet # Voids 2 1 - Exam General appearance: The patient is alert, oriented, in no acute distress. HET: Head is normocephalic and atraumatic. Pupils are equal and reactive. Oropharynx is clear without lesions. Neck: Supple without lymphadenopathy. Trachea midline. Heart: S1 S2. Regular rate and rhythm. Lungs: No crackles or wheezes are heard. Abdomen: Soft, nontender, nondistended with bowel sounds. No peritoneal signs. No palpable organomegaly or masses. Extremities: Normal skin color and turgor. No cyanosis, rash, ulceration, clubbing, or edema. Radial and pedal pulses are 2/4 bilaterally. Neurological: No focal deficits. Strength and sensation are grossly intact. - Labs CBC & Chem 7: 06/05/18 03:18 06/05/18 03:18 Labs: Abnormal Lab Results - Last 24 Hours (Table) 06/04/18 06/05/18 06/06/18 Range/Units 17:05 12:24 06:17 PT 14.5 H 13.3 H (9.0-12.0) sec INR 1.6 H 1.4 H (<1.2) Urine Glucose (UA) 1+ H (Negative) Ur Leukocyte Esterase Moderate H (Negative) Urine Mucus Rare H (None) /hpf Assessment and Plan (1) Melena Narrative/Plan: Acute upper GI bleed most likely secondary to multiple superficial gastric ulcers status post EGD biopsy. Current Visit: Yes Status: Acute Code(s): K92.1 - MELENA SNOMED Code(s): 1625928 (2) Syncope and collapse Current Visit: Yes Status: Acute Code(s): R55 - SYNCOPE AND COLLAPSE SNOMED Code(s): 078277529 (3) Upper GI bleed Current Visit: Yes Status: Acute Code(s): K92.2 - GASTROINTESTINAL HEMORRHAGE, UNSPECIFIED SNOMED Code(s): 42574083 (4) Warfarin-induced coagulopathy Current Visit: Yes Status: Acute Code(s): D68.32 - HEMORRHAGIC DISORD D/T EXTRINSIC CIRCULATING ANTICOAGULANTS; T45.515A - ADVERSE EFFECT OF ANTICOAGULANTS, INITIAL ENCOUNTER SNOMED Code(s): 53607198 (5) Thrombocytopenia Narrative/Plan: Possible underlying alcohol liver disease Current Visit: Yes Status: Acute Code(s): D69.6 - THROMBOCYTOPENIA, UNSPECIFIED SNOMED Code(s): 680628155 (6) Macrocytosis Current Visit: Yes Status: Acute Code(s): D75.89 - OTHER SPECIFIED DISEASES OF BLOOD AND BLOOD-FORMING ORGANS SNOMED Code(s): 064146413 Plan: 1. Resume Coumadin. Alcohol abstinence was advised. Protonix 40 mg twice daily. Return to office in 2-3 weeks. Agreeable for discharge. Assessment and plan a care discussed with Dr. Crawford
--- NOTE | 2018-06-06 12:09 | P.PN ---
Subjective Progress Note Date: 06/06/18 This is 77-year-old gentleman who follows with Dr. Arrieta in the office. He has a known history of hypertension, history of tissue aortic valve replacement, atrial flutter, typical, nonsmoker, significant EtOH use, he states that he drinks 3-4 beers a day as well as daily whiskey. According to the patient, he states he was shopping in [place] and all of a sudden became extremely tired he states that he had to sit down because he felt as though he may pass out. Upon sitting down he states that he fell against a gentleman sitting next to him putting his head and shoulder, according to his he did pass out for a few seconds. Because of this EMS was called. Patient states he had no chest pain no palpitations prior to this happening. Upon arrival here patient also states that he had a couple black stools and for this reason a GI consultation was requested. CAT scan of the brain on arrival did not show any acute process. Chest x-ray did not reveal any evidence of acute pulmonary process. EKG shows normal sinus rhythm with first-degree AV block, PACs, and ST -T wave changes noted in the lateral leads. Blood pressure 122/70 heart rate in the 90s to low 100s. He is currently in an atrial fibrillation. White blood cell count on arrival 7.4, 6.1 this morning, hemoglobin 13.6, 12.7 this morning. Platelet count 129. INR 1.6, sodium 140, potassium 4.4, BUN 51, creatinine 1.2. Troponin 0.012,012, 0.016. Stool for occult blood is positive. She underwent an EGD today which showed gastritis with multiple superficial gastric ulcers with no high-risk stigmata for active bleeding, these were biopsied. No active bleeding on high-risk stigmata for recurrent bleeding. Consent was given to resume Coumadin as at home, patient was started on Protonix. At the time of my examination, patient felt well, denies any dizziness or lightheadedness, no palpitations. 06/06/2018 Patient was seen and examined this morning, no further episodes of dizziness or lightheadedness. No significant orthostatic hypotension, no significant tachycardia or bradycardia arrhythmias noted. From cardiology's perspective, patient is anticipating discharge home today. We have recommended that the patient pickup a 30 day event monitor on discharge and keep his follow-up appointment that is ready scheduled with Dr. Arrieta in the office. Objective - Vital Signs Vital signs: Vital Signs Temp 96.9 F L 06/06/18 08:00 Pulse 97 06/06/18 08:00 Resp 18 06/06/18 08:00 BP 123/63 06/06/18 08:00 Pulse Ox 97 06/06/18 08:00 Intake & Output 06/05/18 06/06/18 06/06/18 18:59 06:59 18:59 Intake Total 440 240 Output Total 50 800 Balance 390 -560 Weight 85.2 kg Intake: IV 200 Oral 240 240 Output: Urine 50 800 Other: Voiding Method Toilet Toilet # Voids 2 1 - Exam PHYSICAL EXAMINATION: GENERAL: 77-year-old gentleman in no acute distress at the time of my examination HEENT: Head is atraumatic, normocephalic. Pupils equal, round. Sclera anicteric. Conjunctiva are clear. Mucous membranes of the mouth are moist. Neck is supple. There is no elevated jugular venous pressure. No carotid bruit is heard. HEART EXAMINATION: R S1 and S2 irregularly irregular CHEST EXAMINATION: Lungs are clear to auscultation and precussion. No chest wall tenderness is noted on palpation or with deep breathing. ABDOMEN: Soft, nontender. Bowel sounds are heard. No organomegaly noted. EXTREMITIES: 2+ peripheral pulses with no evidence of peripheral edema and no calf tenderness noted. NEUROLOGIC patient is awake, alert and oriented X3. - Labs CBC & Chem 7: 06/05/18 03:18 06/05/18 03:18 Labs: Abnormal Lab Results - Last 24 Hours (Table) 06/04/18 06/05/18 06/06/18 Range/Units 17:05 12:24 06:17 PT 14.5 H 13.3 H (9.0-12.0) sec INR 1.6 H 1.4 H (<1.2) Urine Glucose (UA) 1+ H (Negative) Ur Leukocyte Esterase Moderate H (Negative) Urine Mucus Rare H (None) /hpf Assessment and Plan Plan: Assessment and plan #1 syncope, rule out cardiac causes. Patient was noted to have black stools on arrival here, EGD was performed which revealed gastritis with some ulcerated areas, nothing to suggest any active bleeding. #2 atrial fibrillation, paroxysmal. He has history of typical atrial flutter with prior attempted cardioversion. Patient is on Coumadin for anticoagulation. #3 hypertension #4 significant EtOH use #5 history of tissue aortic valve replacement in 2007 Plan No significant orthostatics noted. No significant tachycardia or bradycardia arrhythmias. From cardiology's perspective, patient may be able to be discharged home today. He has a follow-up appointment with Dr. Arrieta in June which she's been instructed to keep. We will give the patient a 30 day event monitor on discharge DNP note has been reviewed, I agree with a documented findings and plan of care. Patient was seen and examined.
== END 2018-06-06 12:48 | disposition home or self-care (01) | DRG 378 ==
LOC: EC 15:15 → 3SCARD 19:23
PROVIDERS: ADMIT Internal Medicine; ATTEND Internal Medicine
PROC: 0DB78ZX Excision of Stomach, Pylorus, Via Natural or Artificial Opening Endoscopic, Diagnostic (ICD-10-PCS; principal; 2018-06-05 10:30)
DX: K25.4 Chronic or unspecified gastric ulcer with hemorrhage (principal); D62 Acute posthemorrhagic anemia; D68.32 Hemorrhagic disorder due to extrinsic circulating anticoagulants; I48.92 Unspecified atrial flutter; D53.9 Nutritional anemia, unspecified; D69.6 Thrombocytopenia, unspecified; E78.5 Hyperlipidemia, unspecified; H91.90 Unspecified hearing loss, unspecified ear; I10 Essential (primary) hypertension; I25.10 Atherosclerotic heart disease of native coronary artery without angina pectoris; I44.0 Atrioventricular block, first degree; I48.0 Paroxysmal atrial fibrillation; K29.70 Gastritis, unspecified, without bleeding; K29.80 Duodenitis without bleeding; T45.515A Adverse effect of anticoagulants, initial encounter; Z79.01 Long term (current) use of anticoagulants; Z79.82 Long term (current) use of aspirin; Z79.899 Other long term (current) drug therapy; Z80.1 Family history of malignant neoplasm of trachea, bronchus and lung; Z82.61 Family history of arthritis; Z95.1 Presence of aortocoronary bypass graft; Z95.3 Presence of xenogenic heart valve; Z72.89 Other problems related to lifestyle; Z71.41 Alcohol abuse counseling and surveillance of alcoholic; Z87.891 Personal history of nicotine dependence
CPT/HCPCS: 36415; 43239; 70450; 71046; 80048; 80053; 81001; 82272; 82550; 82553; 83735; 84484; 85025; 85610; 85730; 86850; 86900; 86901; 88305; 93005; 96361; 96374; 99291

== ENCOUNTER 2018-07-18 08:16 | Day surgery (SDC) | payer MEDICARE, BC ==
[2018-07-16 14:44] VITALS: BMI 27.0
[~2018-07-18 08:16] MED LIST: LIDOCAINE 1% 20 ML VIAL (10MG/ML) FOR IV START INTRADERMA PRN
[2018-07-18 08:47] VITALS: TEMP 97.7
[2018-07-18] MEDS: LACTATED RINGERS 1,000 ML IV SCH ×2 (09:02→09:50)
[2018-07-18] MEDS ORDERED: LIDOCAINE 1% INJ 10MG/ML (20 ML MDV) ONE (09:53)
[2018-07-18] MEDS ORDERED: PROPOFOL 10 MG/ML 20 ML VIAL IV ONE (09:53)
--- NOTE | 2018-07-18 10:19 | P.PCN ---
Date of Procedure: 07/18/18 Description of Procedure: BRIEF HISTORY: The patient is a pleasant 77-year-old male with a medical history significant for coronary artery disease status post CABG in the past who initially presented to the hospital after a syncopal episode with complaints of multiple episodes of melanotic stool. The patient had been on warfarin therapy and aspirin at home. EGD performed in the hospital at that time showed multiple nonbleeding gastric ulcers. The patient was seen in clinic with improvement of his symptoms, and follows up today for repeat EGD to ensure ulcer healing. PROCEDURE PERFORMED: Esophagogastroduodenoscopy. PREOPERATIVE DIAGNOSIS: Gastric ulcers, history of GI bleed. ESTIMATED BLOOD LOSS: Minimal. IV sedation per anesthesia. PROCEDURE: After informed consent was obtained, the patient was brought into the endoscopy unit. IV sedation was administered by Anesthesia under continuous monitoring. Initially the Olympus GIF-190 video endoscope was inserted into the mouth. Esophagus intubated without any difficulty. It was gradually advanced into the stomach and duodenum and carefully examined. The bulb and the second part of the duodenum appeared normal. The scope at this time was withdrawn to the stomach, adequately insufflated with air, and upon careful examination, mucosa of the antrum, body, cardia and the fundus appeared normal. The previously seen antral and pyloric ulcers had healed well. The scope was then withdrawn into the esophagus. The GE junction was located at 49 cm from the incisors. The esophagus appeared normal. There were no erosions or ulcerations seen and the patient tolerated the procedure well. IMPRESSION: 1. Well-healed antral and pyloric ulcers. RECOMMENDATIONS: The findings of this examination were discussed with the patient and his . Okay for diet. Follow up with gastroenterology as previously scheduled. Monitor for any signs and symptoms of GI bleeding.
[2018-07-18 10:23] VITALS: RESP 16
[2018-07-18 10:46] VITALS: BP 122/68; PULSE 65
== END 2018-07-18 11:42 | disposition home or self-care (01) ==
LOC: ORWHC2ENDO 08:16
PROVIDERS: ATTEND Internal Medicine
DX: K25.9 Gastric ulcer, unspecified as acute or chronic, without hemorrhage or perforation (principal); Z87.19 Personal history of other diseases of the digestive system; K21.9 Gastro-esophageal reflux disease without esophagitis; I10 Essential (primary) hypertension; I25.10 Atherosclerotic heart disease of native coronary artery without angina pectoris; I48.91 Unspecified atrial fibrillation; Z95.1 Presence of aortocoronary bypass graft; Z95.2 Presence of prosthetic heart valve; Z79.899 Other long term (current) drug therapy; Z79.01 Long term (current) use of anticoagulants
CPT/HCPCS: 43235; J2001; J2704

== ENCOUNTER 2019-08-31 13:56 | Emergency (ER) | payer MEDICARE, BC ==
[2019-08-31 14:06] VITALS: RESP 18
[2019-08-31] MEDS ORDERED: SODIUM CHLORIDE 0.9% 500 ML 500 ML IV STA (14:29)
[2019-08-31 14:51] LABS: Basophils % (A) 0 %; Eosinophils # (A) 0.2 k/uL (0-0.7); Eosinophils % (A) 3 %; HCT 45.4 % (39.0-53.0); HGB 14.8 gm/dL (13.0-17.5); Lymphocytes # (A) 0.2 k/uL (1.0-4.8); Lymphocytes % (A) 4 %; MCH 29.8 pg (25.0-35.0); MCHC 32.5 g/dL (31.0-37.0); MCV 91.5 fL (80.0-100.0); Mean Platelet Volume 9.7; Monocytes # (A) 0.4 k/uL (0-1.0); Monocytes % (A) 7 %; Neutrophils # (A) 4.8 k/uL (1.3-7.7); Neutrophils % (A) 84 %; Platelet Count 111 k/uL (150-450); RBC 4.96 m/uL (4.30-5.90); RDW 14.5 % (11.5-15.5); WBC 5.7 k/uL (3.8-10.6)
--- NOTE | 2019-08-31 14:53 | ED ---
General Adult HPI - General Chief complaint: Recheck/Abnormal Lab/Rx Stated complaint: exhaustion Time Seen by Provider: 08/31/19 14:08 Source: patient Mode of arrival: ambulatory Limitations: no limitations - History of Present Illness Initial comments: Patient is a 78-year-old male presenting to emergency Department with complaints of exhaustion 1 day. Patient states he woke up this morning feeling like "he has a hangover." Patient states he does drink 4 beers and a couple whiskeys daily. Patient denies chest pain, shortness of breath, nausea, vomiting, abdominal pain, headache, blurry vision, urinary complaints. He denies pain anywhere today. He has not been coughing. Patient states he is on Coumadin for artificial heart valve. He has not missed any doses. He has not had any falls. No traumas. He has no other complaints at this time. Upon arrival to the ER his vital signs are stable. - Related Data Home Medications Medication Instructions Recorded Confirmed Metoprolol Tartrate [Lopressor] 25 mg PO BID 01/26/17 08/31/19 Warfarin [Coumadin] 7.5 mg PO WE 01/26/17 08/31/19 amLODIPine [Norvasc] 10 mg PO QAM 01/26/17 08/31/19 Aspirin [Children's Aspirin] 81 mg PO DAILY PRN 08/31/19 08/31/19 Warfarin [Coumadin] 5 mg PO SUMOTUTHFRSA 08/31/19 08/31/19 Allergies Allergy/AdvReac Type Severity Reaction Status Date / Time No Known Allergies Allergy Verified 08/31/19 14:06 Review of Systems ROS Statement: Those systems with pertinent positive or pertinent negative responses have been documented in the HPI. ROS Other: All systems not noted in ROS Statement are negative. Past Medical History Past Medical History: Atrial Fibrillation, Hearing Disorder / Deafness, Hyperlipidemia, Hypertension History of Any Multi-Drug Resistant Organisms: None Reported Past Surgical History: Cardiac Valve Replacement Additional Past Surgical History / Comment(s): AORTIC (tissue-COW) VALVE REPLACED 2007. CARDIOVERSION 2007.sharon, colonoscopy Past Anesthesia/Blood Transfusion Reactions: No Reported Reaction Past Psychological History: No Psychological Hx Reported Smoking Status: Never smoker Past Alcohol Use History: Occasional Past Drug Use History: None Reported - Past Family History Mother Family Medical History: No Reported History Additional Family Medical History / Comment(s): " from old age" Father Family Medical History: No Reported History Additional Family Medical History / Comment(s): " from old age" General Exam - General Exam Comments Initial Comments: GENERAL: Well-appearing, well-nourished and in no acute distress. HEAD: Atraumatic, normocephalic. EYES: Pupils equal round and reactive to light, extraocular movements intact, sclera anicteric, conjunctiva are normal. ENT: TMs normal, nares patent, oropharynx clear without exudates. Moist mucous membranes. NECK: Normal range of motion, supple without lymphadenopathy or JVD. LUNGS: Breath sounds clear to auscultation bilaterally and equal. No wheezes rales or rhonchi. HEART: Regular rate and rhythm without murmurs, rubs or gallops. ABDOMEN: Soft, nontender, normoactive bowel sounds. No guarding, no rebound. No masses appreciated. : Deferred EXTREMITIES: Normal range of motion, no pitting or edema. No clubbing or cyanosis. NEUROLOGICAL: Cranial nerves II through XII grossly intact. Normal speech, normal gait. PSYCH: Normal mood, normal affect. SKIN: Warm, Dry, normal turgor, no rashes or lesions noted. Limitations: no limitations Course Vital Signs 08/31/19 08/31/19 14:02 15:44 Temperature 98.6 F 97.9 F Pulse Rate 56 L 77 Respiratory 18 18 Rate Blood Pressure 157/97 127/86 O2 Sat by Pulse 95 96 Oximetry Medical Decision Making - Medical Decision Making Patient is 78-year-old male presenting for exhaustion. He states he drinks 4 beers and a few whiskeys per day. He has no falls. He is on Coumadin for an artificial heart valve. He has absolutely no other complaints today. His vitals are normal. Lab work shows no acute abnormalities. INR is 1.9. Urine shows trace ketones, signs mild dehydration. No signs of infection. I discussed this with the patient. His feeling is most likely from dehydration. Patient was given a half liter bolus. He states he feels improvement. He is stable for discharge at this time. Patient will follow up with his PCP as needed. He is stable for discharge. Return parameters were discussed with the patient and his and they both verbalized understanding. - Lab Data Result diagrams: 08/31/19 14:42 08/31/19 14:42 Lab Results 08/31/19 08/31/19 08/31/19 Range/Units 14:42 14:42 14:42 WBC 5.7 (3.8-10.6) k/uL RBC 4.96 (4.30-5.90) m/uL Hgb 14.8 (13.0-17.5) gm/dL Hct 45.4 (39.0-53.0) % MCV 91.5 (80.0-100.0) fL MCH 29.8 (25.0-35.0) pg MCHC 32.5 (31.0-37.0) g/dL RDW 14.5 (11.5-15.5) % Plt Count 111 L (150-450) k/uL Neutrophils % 84 % Lymphocytes % 4 % Monocytes % 7 % Eosinophils % 3 % Basophils % 0 % Neutrophils # 4.8 (1.3-7.7) k/uL Lymphocytes # 0.2 L (1.0-4.8) k/uL Monocytes # 0.4 (0-1.0) k/uL Eosinophils # 0.2 (0-0.7) k/uL Basophils # 0.0 (0-0.2) k/uL PT 18.2 H (9.0-12.0) sec INR 1.9 H (<1.2) Sodium 135 L (137-145) mmol/L Potassium 4.0 (3.5-5.1) mmol/L Chloride 102 (98-107) mmol/L Carbon Dioxide 26 (22-30) mmol/L Anion Gap 7 mmol/L BUN 15 (9-20) mg/dL Creatinine 1.15 (0.66-1.25) mg/dL Est GFR (CKD-EPI)AfAm 71 (>60 ml/min/1.73 sqM) Est GFR (CKD-EPI)NonAf 61 (>60 ml/min/1.73 sqM) Glucose 97 (74-99) mg/dL Calcium 8.7 (8.4-10.2) mg/dL Total Bilirubin 1.0 (0.2-1.3) mg/dL AST 26 (17-59) U/L ALT 16 (4-49) U/L Alkaline Phosphatase 72 (38-126) U/L Total Protein 7.1 (6.3-8.2) g/dL Albumin 4.3 (3.5-5.0) g/dL Urine Color Urine Appearance (Clear) Urine pH (5.0-8.0) Ur Specific [place] (1.001-1.035) Urine Protein (Negative) Urine Glucose (UA) (Negative) Urine Ketones (Negative) Urine Blood (Negative) Urine Nitrite (Negative) Urine Bilirubin (Negative) Urine Urobilinogen (<2.0) mg/dL Ur Leukocyte Esterase (Negative) Urine RBC (0-5) /hpf Urine WBC (0-5) /hpf Ur Squamous Epith Cells (0-4) /hpf Hyaline Casts (0-2) /lpf Urine Mucus (None) /hpf 08/31/19 Range/Units Unknown WBC (3.8-10.6) k/uL RBC (4.30-5.90) m/uL Hgb (13.0-17.5) gm/dL Hct (39.0-53.0) % MCV (80.0-100.0) fL MCH (25.0-35.0) pg MCHC (31.0-37.0) g/dL RDW (11.5-15.5) % Plt Count (150-450) k/uL Neutrophils % % Lymphocytes % % Monocytes % % Eosinophils % % Basophils % % Neutrophils # (1.3-7.7) k/uL Lymphocytes # (1.0-4.8) k/uL Monocytes # (0-1.0) k/uL Eosinophils # (0-0.7) k/uL Basophils # (0-0.2) k/uL PT (9.0-12.0) sec INR (<1.2) Sodium (137-145) mmol/L Potassium (3.5-5.1) mmol/L Chloride (98-107) mmol/L Carbon Dioxide (22-30) mmol/L Anion Gap mmol/L BUN (9-20) mg/dL Creatinine (0.66-1.25) mg/dL Est GFR (CKD-EPI)AfAm (>60 ml/min/1.73 sqM) Est GFR (CKD-EPI)NonAf (>60 ml/min/1.73 sqM) Glucose (74-99) mg/dL Calcium (8.4-10.2) mg/dL Total Bilirubin (0.2-1.3) mg/dL AST (17-59) U/L ALT (4-49) U/L Alkaline Phosphatase (38-126) U/L Total Protein (6.3-8.2) g/dL Albumin (3.5-5.0) g/dL Urine Color Yellow Urine Appearance Cloudy (Clear) Urine pH 6.0 (5.0-8.0) Ur Specific [place] 1.031 (1.001-1.035) Urine Protein 1+ H (Negative) Urine Glucose (UA) Negative (Negative) Urine Ketones Trace H (Negative) Urine Blood Trace H (Negative) Urine Nitrite Negative (Negative) Urine Bilirubin Negative (Negative) Urine Urobilinogen 3.0 (<2.0) mg/dL Ur Leukocyte Esterase Moderate H (Negative) Urine RBC 8 H (0-5) /hpf Urine WBC 7 H (0-5) /hpf Ur Squamous Epith Cells 1 (0-4) /hpf Hyaline Casts 7 H (0-2) /lpf Urine Mucus Many H (None) /hpf Disposition Clinical Impression: Exhaustion, Dehydration Disposition: HOME SELF-CARE Condition: Stable Instructions (If sedation given, give patient instructions): Dehydration (ED) Additional Instructions: Please return to the Emergency Department if symptoms worsen or any other concerns. Follow-up with PCP. Is patient prescribed a controlled substance at d/c from ED?: No Referrals: Donna Ventura MD [Primary Care Provider] - 1-2 days
[2019-08-31 14:58] LABS: INR 1.9 (<1.2); Prothrombin Time 18.2 sec (9.0-12.0)
[2019-08-31 15:09] LABS: Albumin 4.3 g/dL (3.5-5.0); Calcium 8.7 mg/dL (8.4-10.2); Total Protein 7.1 g/dL (6.3-8.2)
[2019-08-31 15:14] LABS: Appearance,Urine Cloudy (Clear); Bilirubin,Urine Negative (Negative); Blood,Urine Trace (Negative); Color,Urine Yellow; Glucose,Urine (UA) Negative (Negative); Hyaline Casts,Urine 7 /lpf (0-2); Ketones,Urine Trace (Negative); Leukocyte Esterase,Urine Moderate (Negative); Mucus,Urine Many /hpf; Nitrite,Urine Negative (Negative); Protein,Urine 1+ (Negative); RBC,Urine 8 /hpf (0-5); Specific Gravity,Urine 1.031 (1.001-1.035); Squamous Epithelial Cell,Urine 1 /hpf (0-4); WBC,Urine 7 /hpf (0-5)
[2019-08-31 15:46] VITALS: BP 127/86; PULSE 77; TEMP 97.9
== END 2019-08-31 15:43 | disposition home or self-care (01) ==
LOC: EC 13:56
DX: E86.0 Dehydration (principal); R53.83 Other fatigue; I48.91 Unspecified atrial fibrillation; I10 Essential (primary) hypertension; Z79.01 Long term (current) use of anticoagulants; Z79.82 Long term (current) use of aspirin; Z79.899 Other long term (current) drug therapy; Z95.2 Presence of prosthetic heart valve
CPT/HCPCS: 36415; 80053; 81001; 85025; 85610; 96360; 99283

== ENCOUNTER → 2020-02-24 | Outpatient (CLI) | payer MEDICARE, BC ==
[2020-02-24 22:34] LABS: Chol/HDL Ratio 4.24; LDL Cholesterol,Calculated 108.4 mg/dL (0.0-131.0); VLDL Calculation 66.6 mg/dL (5.00-40.00)
== END | disposition home or self-care (01) ==
LOC: LABWHC1 02-03 10:00
PROVIDERS: ATTEND Internal Medicine Cardiovascular Disease
DX: E78.2 Mixed hyperlipidemia (principal)
CPT/HCPCS: 36415; 80061; 84450; 84460

== ENCOUNTER 2021-09-13 07:11 | Day surgery (SDC) | payer MEDICARE, BC ==
[2021-09-13] MEDS ORDERED: SODIUM CHLORIDE 0.9% 500 ML 500 ML IV ONE (07:41)
[2021-09-13 07:48] VITALS: TEMP 97.9
[2021-09-13 08:03] LABS: INR 2.2 (<1.2); Prothrombin Time 21.9 sec (9.0-12.0)
[2021-09-13] MEDS ORDERED: fentaNYL (PF) 50 MCG/ML 2 ML AMP ONE (08:45)
[2021-09-13] MEDS ORDERED: BENZOCAINE SPRAY 1 CAN TOPICAL ONE (08:51)
[2021-09-13] MEDS ORDERED: fentaNYL (PF) 50 MCG/ML 2 ML AMP IV ONE (09:10)
[2021-09-13] MEDS ORDERED: MIDAZOLAM 2 MG/2 ML VIAL IV ONE ×2 (09:11)
[2021-09-13 17:57] VITALS: RESP 16
[2021-09-13 17:59] VITALS: BP 112/61; PULSE 61
--- NOTE | 2021-09-29 10:24 | ECHOT ---
TRANSESOPHAGEAL ECHOCARDIOGRAM INDICATION: Pulmonary hypertension. PROCEDURE NOTE: After obtaining informed consent, transesophageal echocardiogram was performed in left lateral position using an Omniplane probe. Local and IV sedation were obtained using Xylocaine spray, intravenous Versed and fentanyl. Patient tolerated the procedure well without any obvious immediate complications. Total sedation time was 10 minutes. FINDINGS: 1. Mitral valve shows prolapse of the posterior mitral leaflet with severe posterior mitral regurgitation. There is calcification noted. 2. Left atrium appears mildly enlarged. 3. Right atrium and right ventricle seem within normal limits. 4. Left ventricle appears mildly enlarged with mild LV dysfunction with an ejection fraction of 45%. 5. Ascending aorta appears mildly dilated. 6. There is a bioprosthetic valve in aortic position that is functioning normally without any evidence of periprosthetic leak. 7. There is no evidence of [id number] shunt by color-flow Doppler or [id number] shunt by agitated saline contrast study. CONCLUSIONS: 1. Severe posteriorly directed mitral regurgitation. 2. Normally functioning bioprosthetic valve. PLAN: I advised the patient to undergo mitral clip and will discuss this further when I see him back in the office. MMODL / IJN: [id number] /
== END 2021-09-13 10:44 | disposition home or self-care (01) ==
LOC: CATHCVL 07:11
PROVIDERS: ATTEND Internal Medicine Cardiovascular Disease
DX: I34.0 Nonrheumatic mitral (valve) insufficiency (principal); I27.20 Pulmonary hypertension, unspecified; Z95.2 Presence of prosthetic heart valve; I48.21 Permanent atrial fibrillation; I10 Essential (primary) hypertension; Z79.899 Other long term (current) drug therapy
CPT/HCPCS: 93312; 93320; 93325; 85610; J2250; J3010

== ENCOUNTER → 2022-03-15 | Outpatient (CLI) | payer MEDICARE, BC ==
[2022-03-15 14:29] LABS: Anion Gap 9.4 mmol/L (10.00-18.00); Blood Urea Nitrogen 20.8 mg/dL (9.0-27.0); Potassium 5.6 mmol/L (3.5-5.5)
[2022-03-15 14:39] LABS: HCT 44.8 % (39.6-50.0); HGB 14.6 g/dL (13.0-17.0); MCH 33.9 pg (27.0-32.0); MCHC 32.6 g/dL (32.0-37.0); MCV 103.9 fL (80.0-97.0); Mean Platelet Volume 12.6 fL (9.5-12.2); NRBC Per 100 WBC 0 /100 WBCS (0.0-0.0); Platelet Count 120 X 10*3/uL (140-440); RBC 4.31 X 10*6/uL (4.40-5.60); RDW 14.3 % (11.5-14.5); WBC 5.66 X 10*3/uL (4.50-10.00)
== END | disposition home or self-care (01) ==
LOC: LABWHC1 10:06
PROVIDERS: ATTEND Internal Medicine Cardiovascular Disease
DX: I10 Essential (primary) hypertension (principal); I48.21 Permanent atrial fibrillation
CPT/HCPCS: 36415; 80051; 84443; 84520; 85027

== ENCOUNTER → 2022-10-06 | Outpatient (CLI) | payer MEDICARE, BC ==
--- NOTE | 2022-10-09 07:45 | US ---
EXAMINATION TYPE: US arterial LE multi level DATE OF EXAM: 10/06/2022 2:05 PM CLINICAL HISTORY: I73.9 PERIPHERAL VASCULAR DISEASE. Patient states legs feel tired when walking stai rs. History of: Smoker: No Hypertension: No Diabetic: No Hyperlipidemia: No Doppler Waveforms: Right: Multiphasic, except monophasic at dorsalis pedis. Left: Monophasic at posterior tibial and dorsalis pedis. Right Brachial Pressure: 138 Left Brachial Pressure: 138 Ankle-Brachial Indices: Right: 0.95 Left: 1.27 Toe Brachial Indices: Right: 0.52 Left: 0.53 IMPRESSION: Diminished bilateral TBI values consistent with at least mild peripheral arterial diseas e in the bilateral feet. Further workup and follow-up advised.
== END | disposition home or self-care (01) ==
LOC: RADUSWWP 13:28
PROVIDERS: ATTEND Family Medicine
DX: I73.9 Peripheral vascular disease, unspecified (principal)
CPT/HCPCS: 93923

== ENCOUNTER 2022-12-15 06:26 | Day surgery (SDC) | payer MEDICARE, BC ==
[~2022-12-15 06:26] MED LIST changes: +LACTATED RINGERS 1,000 ML IV SCH; +LIDOCAINE 1% (10MG/ML) FOR IV START INTRADERMA PRN; -LIDOCAINE 1% 20 ML VIAL (10MG/ML) FOR IV START INTRADERMA PRN
[2022-12-15 06:53] VITALS: TEMP 97
[2022-12-15] MEDS ORDERED: PROPOFOL 10 MG/ML 20 ML VIAL IV ONE (07:45)
[2022-12-15] MEDS ORDERED: LIDOCAINE 2% INJ 20 MG/ML (2 ML VIAL) ONE (07:45)
--- NOTE | 2022-12-15 08:06 | P.PCN ---
Date of Procedure: 12/15/22 Procedure(s) Performed: Brief history: Patient is a pleasant 83-year-old white male scheduled for an elective upper endoscopy as well as colonoscopy as a part of evaluation of iron deficiency anemia. and black stool about 2 weeks ago. Has history of A. fib and is maintained on Coumadin for many years. Procedure performed: Esophagogastroduodenoscopy biopsy Colonoscopy Preoperative diagnosis: Anesthesia: MAC Procedure: After informed consent was obtained from the patient was brought into the endos copy unit and IV sedation was administered by anesthesia under continuous monitoring. Initially upper endoscopy was done. The Olympus GF 160 video endoscope was inserted inserted into the mouth and esophagus intubated without any difficulty and was gradually advanced into the stomach and duodenum and carefully examined. The bulb and second part of the duodenum appeared normal. as his were done from the duodenum to rule out celiac disease. The scope was then withdrawn into the stomach adequately insufflated with air and upon careful examination the antrum had a 1 cm deep ulcer with no active bleeding and biopsies were done from this area. There was mild gastritis of the antrum noted. Mucosa of the body, cardia and fundus appeared normal. The scope was then withdrawn into the esophagus. The GE junction was located at 40 cm to the incisors. It appeared regular with no erythema erosions or ulcerations. Rest of the esophagus appeared normal. Patient tolerated the procedure well. At this time the patient continued to remain sedation. Initial digital rectal examination was normal. Olympus CF 160 video colonoscope was then inserted into the rectum and gradually advanced to the cecum without any difficulty. Careful examination was performed as the scope was gradually being withdrawn. The prep was excellent. The cecum, ascending colon, transverse colon, descending colon, sigmoid colon and rectum appeared normal. Retroflexion was performed in the rectum and small internale noted. Patient tolerated the procedure well. Impression: 1. Upper endoscopy revealed 1 cm deep gastric antral ulcer and gastritis 2. Colonoscopy revealed scattered sigmoid diverticulosis and small internal hemorrhoids but no evidence of colorectal neoplasia . Recommendations: Findings of this examination were discussed with the patient as well as his family. He was advised to follow with the biopsy results. He'll be started on Prilosec 20 mg daily and was briefly educated about avoiding NSAIDs. he was advised to resume Coumadin today.
[2022-12-15 08:39] VITALS: BP 118/67; PULSE 70; RESP 20
== END 2022-12-15 08:52 | disposition home or self-care (01) ==
LOC: ORWHC2ENDO 06:26
PROVIDERS: ATTEND Internal Medicine Gastroenterology
DX: K29.50 Unspecified chronic gastritis without bleeding (principal); K29.80 Duodenitis without bleeding; K57.30 Diverticulosis of large intestine without perforation or abscess without bleeding; K25.9 Gastric ulcer, unspecified as acute or chronic, without hemorrhage or perforation; D64.9 Anemia, unspecified; D50.9 Iron deficiency anemia, unspecified; I48.91 Unspecified atrial fibrillation; Z79.899 Other long term (current) drug therapy; I10 Essential (primary) hypertension; E78.5 Hyperlipidemia, unspecified
CPT/HCPCS: 88305; 88342; 45378; 43239; J2704; J2001

== ENCOUNTER → 2023-05-11 | Outpatient (CLI) | payer MEDICARE, BC ==
[2023-05-12 02:20] LABS: BUN/Creat Ratio 17.05 Ratio (12.00-20.00); Blood Urea Nitrogen 34.1 mg/dL (9.0-27.0); Calcium 9.4 mg/dL (8.7-10.3); Carbon Dioxide 25.8 mmol/L (21.6-31.8); Chloride 104 mmol/L (96-109); Glucose 84 mg/dL (70-110); Potassium 5.7 mmol/L (3.5-5.5); Sodium 142 mmol/L (135-145)
[2023-05-12 04:01] LABS: HCT 37.4 % (39.6-50.0); HGB 10.6 d/dL (13.0-17.0); MCH 23.9 pg (27.0-32.0); MCHC 28.3 d/dL (32.0-37.0); MCV 84.2 FL (80.0-97.0); Mean Platelet Volume 12.4 FL (9.5-12.2); NRBC Per 100 WBC 0 X 10*3/uL (0.00-0.01); Platelet Count 123 X 10*3/uL (140-440); RBC 4.44 X 10*6/uL (4.40-5.60); RDW 19.5 % (11.5-14.5); WBC 5.81 X 10*3/uL (4.50-10.00)
[2023-05-12 04:22] LABS: INR 1.4 sec (0.93-1.11); Prothrombin Time 14.8 sec (9.9-11.9)
== END | disposition home or self-care (01) ==
LOC: LABWHC1 14:31
PROVIDERS: ATTEND Internal Medicine Cardiovascular Disease
DX: I73.9 Peripheral vascular disease, unspecified (principal)
CPT/HCPCS: 36415; 80048; 85027; 85610

== ENCOUNTER 2023-06-05 05:34 | Day surgery (SDC) | payer MEDICARE, BC ==
[2023-05-29 15:14] VITALS: BMI 28.1
[2023-06-05] MEDS ORDERED: SODIUM CHLORIDE 0.9% 1,000 ML in EMPTY BAG 1 BAG IV ONE (05:40)
[2023-06-05] MEDS ORDERED: ASPIRIN 325 MG TAB PO PRN (05:40)
[2023-06-05] MEDS ORDERED: ALPRAZolam 0.25 MG TAB PO PRN (05:40)
[2023-06-05] MEDS ORDERED: SODIUM CHLORIDE 0.9% 1,000 ML IV ONE (06:17)
[2023-06-05 06:59] VITALS: RESP 16; TEMP 97.6
[2023-06-05 07:06] LABS: INR 1.2 (<1.2)
[2023-06-05] MEDS ORDERED: VERAPAMIL 2.5 MG/ML 2 ML AMP ONE (07:17)
[2023-06-05] MEDS ORDERED: LIDOCAINE 1% INJ 10MG/ML (20 ML MDV) ONE (07:17)
[2023-06-05] MEDS ORDERED: methylPREDNISolone SOD SUCCI 125 MG/2 ML VIAL ONE (07:36)
[2023-06-05] MEDS ORDERED: methylPREDNISolone SOD SUCCI 125 MG/2 ML VIAL IVP ONE (07:38)
[2023-06-05] MEDS ORDERED: MIDAZOLAM 2 MG/2 ML VIAL IVP ONE (07:39)
[2023-06-05] MEDS ORDERED: LIDOCAINE 1% INJ 10MG/ML (30 ML VIAL-PF) SQ ONE (07:40)
[2023-06-05] MEDS ORDERED: IOPAMIDOL-370 200ML BTL INJ ONE (07:49)
[2023-06-05] MEDS ORDERED: NALOXONE 0.4 MG/ML 1 ML VIAL IVP PRN (07:53)
[2023-06-05] MEDS ORDERED: SODIUM CHLORIDE 0.9% 1,000 ML in EMPTY BAG 1 BAG IV SCH (08:00)
--- NOTE | 2023-06-05 08:04 | P.PCN ---
Date of Procedure: 06/05/23 Operative Findings: AN ABDOMINAL AORTOGRAM AND BILATERAL LOWER EXTREMITIES RUNOFF PERFORMING PHYSICIAN: Hakeem Bryant MD PROCEDURE PERFORMED: 1. An abdominal aortogram 2. Bilateral lower extremities runoff 3. Ultrasound-guided access of the right common femoral artery INDICATION: Bilateral lower extremities intermittent claudication in this 82-year-old gentleman who underwent an arterial duplex study which showed severe below the knee disease bilaterally COMPLICATION: None LEVEL OF SEDATION: Moderate was sedation length of 15 minutes APPROACH: Right common femoral artery PROCEDURE DESCRIPTION: After obtaining informed consent and explaining the procedure benefits, risks, and complications, the patient was brought to the cardiac lab animal technician. The right groin was prepped and draped in sterile fashion. The right common femoral artery was cannulated using micropuncture technique, under ultrasound guidance. A micropuncture wire was advanced, and the micropuncture sheath was advanced over the wire, then the micropuncture sheath was exchanged over an 0.35 wire into a 5-Djiboutian sheath dilator assembly then the wire and dilator were removed and sheath was flushed. We did an abdominal aortogram and bilateral lower extremities runoff using 5- Djiboutian pigtail catheter using a power injection. The catheter was initially placed at the level of the renal arteries, and it was pulled into above the bifurcation of the aorta into right and left common iliac arteries. The procedure was completed and there was no complications. SELECTIVE PERIPHERAL ANGIOGRAM: The abdominal aorta: aneurysmal The common iliac arteries: are calcified was mild disease only The external iliac arteries: are angiographically normal The internal iliac arteries: are calcified was mild disease only The common femoral arteries: are angiographically normal Superficial femoral arteries: calcified was only mild disease noted Popliteal arteries: calcified was mild disease noted Below the knees: two vessels run off with anterior tibial and peroneal CONCLUSION: 1. Infrarenal abdominal aortic aneurysm 1. Mild aortoiliac disease 3. Mild fem-pop disease 4. Two vessels run off with anterior tibial and peroneal POSTPROCEDURE MANAGEMENT: Consider medical treatment for the PAD and consider CTA to evaluate the infrarenal abdominal aortic aneurysm
--- NOTE | 2023-06-05 08:53 | IR ---
EXAMINATION TYPE: IR angio abdominal w runoff DATE OF EXAM: 06/05/2023 COMPARISON: NONE HISTORY: Fluoroscopy time. Fluoroscopy was provided to the referring clinician.
[2023-06-05 12:35] VITALS: BP 148/72; PULSE 94
== END 2023-06-05 15:32 | disposition home or self-care (01) ==
LOC: CATHCVL 05:34
PROVIDERS: ATTEND Internal Medicine Interventional Cardiology
DX: I71.43 Infrarenal abdominal aortic aneurysm, without rupture (principal); I10 Essential (primary) hypertension; I34.0 Nonrheumatic mitral (valve) insufficiency; I48.21 Permanent atrial fibrillation; Z95.2 Presence of prosthetic heart valve; Z79.899 Other long term (current) drug therapy
CPT/HCPCS: 36200; 75625; 75716; 84132; 85610; C1769 ×3; C1894; J2250; J2930; J2001; Q9967

== ENCOUNTER → 2023-06-27 | Outpatient (CLI) | payer MEDICARE, BC ==
[2023-06-27 13:35] LABS: African American GFR (CKD) 44 (>60 ml/min/1.73 sqM); Blood Urea Nitrogen 31 mg/dL (9-20); Non-African American GFR(CKD) 38 (>60 ml/min/1.73 sqM)
--- NOTE | 2023-07-02 13:37 | CT ---
EXAMINATION TYPE: CT angio abdomen pelvis DATE OF EXAM: 06/27/2023 COMPARISON: None INDICATION: aneurysm DLP: 803.8 mGycm, Automated exposure control for dose reduction was used. CONTRAST: 80 mL of Isovue 370. Study performed without Oral Contrast TECHNIQUE: Axial images were obtained from above the diaphragm to the pubic rami in the axial plane a t 5 mm thick sections. Reconstructed images are reviewed on the computer in the coronal plane. Thre e-D reconstructed images performed on separate computer are presented and reviewed on the computer. FINDINGS: Limited CT sections are obtained the lung bases. There is a small right pleural effusion. The heart size is enlarged. Coronary artery calcification is present. Aortic valve calcification is present.. CT ABDOMEN: Liver: Normal Spleen: Normal Pancreas: Normal Adrenal glands: Adrenal gland is thickened at 1.7 cm. Right adrenal gland is normal. Gallbladder: Gallstones are present. Kidneys: No masses are evident. No hydronephrosis is present. No cysts are present. No renal stone s are evident. Some minimal vascular calcification within the renal vessels is present. Aorta: Vascular calcification is within the aorta. There is some aneurysmal dilatation of the mid ab dominal aorta. Transverse dimension is 4.1 cm mid abdominal aorta. This terminates above the bifurcat ion. Some mild fusiform prominence of the proximal common iliac vessels may be present. Inferior vena cava: Normal. CT PELVIS: Loops of bowel within the abdomen and pelvis are normal. The study is without oral contrast limit ing bowel evaluation. Appendix: Normal as visualized. Urinary bladder: Normal. Genitourinary structures: Prostate is prominent and contains calcification. Osseous structures: No suspicious lytic or sclerotic lesions. IMPRESSION: 1. Infrarenal abdominal aortic Aneurysm of the mid abdominal aorta with a transverse dimension of 4. 1 cm. This terminates above the bifurcation. Some mild prominence of the common iliac vessels may be present. 2. Cholelithiasis. 3. Thickening of the left adrenal gland. 4. Small right pleural effusion. 5. Cardiomegaly
== END | disposition home or self-care (01) ==
LOC: RADCTMAIN 12:40
PROVIDERS: ATTEND Internal Medicine Cardiovascular Disease
DX: I71.43 Infrarenal abdominal aortic aneurysm, without rupture (principal); K80.20 Calculus of gallbladder without cholecystitis without obstruction; J90 Pleural effusion, not elsewhere classified; I51.7 Cardiomegaly; E27.8 Other specified disorders of adrenal gland
CPT/HCPCS: 82565; 84520; 36415; 74174; Q9967

== ENCOUNTER 2023-08-10 09:54 | Inpatient (IN) | payer MEDICARE, BC ==
--- NOTE | 2023-08-10 10:47 | ED ---
General Adult HPI - General Chief complaint: Recheck/Abnormal Lab/Rx Stated complaint: SOB, ABN EKG Time Seen by Provider: 08/10/23 10:12 Source: patient, RN notes reviewed Mode of arrival: wheelchair Limitations: no limitations - History of Present Illness Initial comments: 82-year-old male presents emergency department with chief complaint of shortness of breath. Patient was sent from PCPs office for further evaluation. Patient does have congestive heart failure stated prior to valve replacement and history of A-fib. Patient is on Coumadin. Patient states that shortness of breath has been worsening but has been intermittent. Patient is concerned about his shortness of breath with exertion. Patient denies any reports of fevers chills he has mild leg swelling he was recently switched from losartan to Entresto - Related Data Home Medications Medication Instructions Recorded Confirmed Metoprolol Tartrate [Lopressor] 50 mg PO BID 01/26/17 06/05/23 Furosemide [Lasix] 20 mg PO QAM 09/12/21 06/05/23 Losartan [Cozaar] 25 mg PO DAILY 05/29/23 06/05/23 Omeprazole 20 mg PO DAILY 05/29/23 06/05/23 Aspirin 325 mg PO ONCE 06/05/23 06/05/23 Allergies Allergy/AdvReac Type Severity Reaction Status Date / Time shellfish derived Allergy Anaphylaxis Verified 08/10/23 10:00 Review of Systems ROS Statement: Those systems with pertinent positive or pertinent negative responses have been documented in the HPI. ROS Other: All systems not noted in ROS Statement are negative. Past Medical History Past Medical History: Atrial Fibrillation, Hyperlipidemia, Hypertension Additional Past Medical History / Comment(s): . History of Any Multi-Drug Resistant Organisms: None Reported Past Surgical History: Cardiac Valve Replacement Additional Past Surgical History / Comment(s): AORTIC VALVE REPLACED 2007, CARDIOVERSION, JUWAN Past Anesthesia/Blood Transfusion Reactions: No Reported Reaction Past Psychological History: No Psychological Hx Reported Smoking Status: Never smoker Past Alcohol Use History: Daily, Heavy Past Drug Use History: None Reported - Past Family History Mother Family Medical History: No Reported History Additional Family Medical History / Comment(s): " from old age" Father Family Medical History: No Reported History Additional Family Medical History / Comment(s): " from old age" General Exam Limitations: no limitations General appearance: alert, in no apparent distress Head exam: Present: atraumatic, normocephalic, normal inspection Eye exam: Present: normal appearance, PERRL, EOMI. Absent: scleral icterus, conjunctival injection, periorbital swelling ENT exam: Present: normal exam, normal oropharynx, mucous membranes moist Neck exam: Present: normal inspection, full ROM. Absent: tenderness, me ningismus, lymphadenopathy Respiratory exam: Present: rales. Absent: normal lung sounds bilaterally, respiratory distress, wheezes, rhonchi, stridor Cardiovascular Exam: Present: bradycardia, irregular rhythm, normal heart sounds. Absent: systolic murmur, diastolic murmur, rubs, gallop, clicks GI/Abdominal exam: Present: soft, normal bowel sounds. Absent: distended, tenderness, guarding, rebound, rigid Extremities exam: Present: pedal edema (Minimal ) Skin exam: Present: warm, dry, intact, normal color. Absent: rash Course Vital Signs 08/10/23 09:55 Temperature 97.3 F L Pulse Rate 52 L Respiratory 18 Rate Blood Pressure 95/52 O2 Sat by Pulse 96 Oximetry EKG Findings - EKG Comments: EKG Findings:: EKG performed at 10: 15 atrial flutter with rate of 47 QRS 120 QT/QTc 480/443 - EKG Results: EKG: interpreted by JULIO Medical Decision Making - Medical Decision Making Was pt. sent in by a medical professional or institution ([facility] Lopez, MECHANICAL ASSEMBLY, urgent care, hospital, or retirement...) When possible be specific @ -PCP Did you speak to anyone other than the patient for history (EMS, parent, family, police, friend...)? What history was obtained from this source @ -No Did you review nursing and triage notes (agree or disagree)? Why? @ -I reviewed and agree with nursing and triage notes Were old charts reviewed (outside hosp., previous admission, EMS record, old EKG, old radiological studies, urgent care reports/EKG's, retirement records)? Report findings @ -[. Prior laboratory studies, echocardiogram Differential Diagnosis (chest pain, altered mental status, abdominal pain women, abdominal pain men, vaginal bleeding, weakness, fever, dyspnea, syncope, headache, dizziness, GI bleed, back pain, seizure, CVA, palpatations, mental health, musculoskeletal)? @ -Differential Dyspnea: Coronary syndrome, arrhythmia, tamponade, asthma, COPD, pulmonary embolism, pneumonia, pneumothorax, pulmonary effusion, anaphylaxis, diabetic ketoacidosis, flailed chest, pulmonary contusion, diaphragmatic rupture, anemia, neuromuscular, this is not meant to be an all-inclusive list. EKG interpreted by me (3pts min.). @ -[As above X-rays interpreted by me (1pt min.). @ -[Chest x-ray two-view shows pulmonary edema, pleural effusions CT interpreted by me (1pt min.). @ -None done U/S interpreted by me (1pt. min.). @ -None done What testing was considered but not performed or refused? (CT, X-rays, U/S, labs)? Why? @ -None What meds were considered but not given or refused? Why? @ -None Did you discuss the management of the patient with other professionals (professionals i.e. , PA, MECHANICAL ASSEMBLY, lab, RT, psych nurse, social media sr strategy manager, tram inspector, teacher, house officer, manager rn case)? Give summary @ -[Dr. Kahn for admission secondary to CHF exacerbation Was smoking cessation discussed for >3mins.? @ -No Was critical care preformed (if so, how long)? @ -No Were there social determinants of health that impacted care today? How? (Homelessness, low income, unemployed, alcoholism, drug addiction, transportation, low edu. Level, literacy, decrease access to med. care, long term, rehab)? @ -No Was there de-escalation of care discussed even if they declined (Discuss DNR or withdrawal of care, Hospice)? DNR status @ -No What co-morbidities impacted this encounter? (DM, HTN, Smoking, COPD, CAD, Cancer, CVA, ARF, Chemo, Hep., AIDS, mental health diagnosis, sleep apnea, morbid obesity)? @ -See HF, aortic valve replacement, mitral valve regurgitation, Was patient admitted / discharged? Hospital course, mention meds given and route, prescriptions, significant lab abnormalities, going to OR and other pertinent info. @ -[Admitted patient has evidence of CHF. Patient has bilateral pleural effusion, elevated BNP. Patient was given Lasix. Patient will be admitted for diuresis Undiagnosed new problem with uncertain prognosis? @ -No Drug Therapy requiring intensive monitoring for toxicity (Heparin, Nitro, Insulin, Cardizem)? @ -No Were any procedures done? @ -No Diagnosis/symptom? @ -[CHF exacerbation Acute, or Chronic, or Acute on Chronic? @ -Acute Uncomplicated (without systemic symptoms) or Complicated (systemic symptoms)? @ -[Uncomplicated Side effects of treatment? @ -[No Exacerbation, Progression, or Severe Exacerbation? @ -Exacerbation Poses a threat to life or bodily function? How? (Chest pain, [place], [place], pneumonia, PE, COPD, DKA, ARF, appy, cholecystitis, CVA, Diverticulitis, Homicidal, Suicidal, threat to staff... and all critical care pts) @ -Yes CHF - Lab Data Result diagrams: 08/10/23 10:30 08/10/23 10:30 Lab Results 08/10/23 08/10/23 08/10/23 Range/Units 10:30 10:30 10:30 WBC 5.3 (3.8-10.6) k/uL RBC 3.51 L (4.30-5.90) m/uL Hgb 9.4 L (13.0-17.5) gm/dL Hct 30.4 L (39.0-53.0) % MCV 86.6 (80.0-100.0) fL MCH 26.8 (25.0-35.0) pg MCHC 31.0 (31.0-37.0) g/dL RDW 19.0 H (11.5-15.5) % Plt Count 146 L (150-450) k/uL MPV 12.0 Neutrophils % 82 % Lymphocytes % 7 % Monocytes % 8 % Eosinophils % 1 % Basophils % 0 % Neutrophils # 4.3 (1.3-7.7) k/uL Lymphocytes # 0.4 L (1.0-4.8) k/uL Monocytes # 0.4 (0-1.0) k/uL Eosinophils # 0.1 (0-0.7) k/uL Basophils # 0.0 (0-0.2) k/uL Hypochromasia Marked Anisocytosis Slight PT 43.4 H (10.0-12.5) sec INR 4.4 H (<1.2) APTT 36.7 H (22.0-30.0) sec Sodium 138 (137-145) mmol/L Potassium 5.3 H (3.5-5.1) mmol/L Chloride 110 H (98-107) mmol/L Carbon Dioxide 20 L (22-30) mmol/L Anion Gap 8 mmol/L BUN 52 H (9-20) mg/dL Creatinine 2.22 H (0.66-1.25) mg/dL Est GFR (CKD-EPI)AfAm 31 (>60 ml/min/1.73 sqM) Est GFR (CKD-EPI)NonAf 27 (>60 ml/min/1.73 sqM) Glucose 89 (74-99) mg/dL Calcium 8.4 (8.4-10.2) mg/dL Magnesium 2.1 (1.6-2.3) mg/dL Total Bilirubin 0.7 (0.2-1.3) mg/dL AST 21 (17-59) U/L ALT 13 (4-49) U/L Alkaline Phosphatase 115 (38-126) U/L Troponin I (0.000-0.034) ng/mL NT-Pro-B Natriuret Pep 40497 pg/mL Total Protein 6.4 (6.3-8.2) g/dL Albumin 3.8 (3.5-5.0) g/dL 08/10/23 Range/Units 10:30 WBC (3.8-10.6) k/uL RBC (4.30-5.90) m/uL Hgb (13.0-17.5) gm/dL Hct (39.0-53.0) % MCV (80.0-100.0) fL MCH (25.0-35.0) pg MCHC (31.0-37.0) g/dL RDW (11.5-15.5) % Plt Count (150-450) k/uL MPV Neutrophils % % Lymphocytes % % Monocytes % % Eosinophils % % Basophils % % Neutrophils # (1.3-7.7) k/uL Lymphocytes # (1.0-4.8) k/uL Monocytes # (0-1.0) k/uL Eosinophils # (0-0.7) k/uL Basophils # (0-0.2) k/uL Hypochromasia Anisocytosis PT (10.0-12.5) sec INR (<1.2) APTT (22.0-30.0) sec Sodium (137-145) mmol/L Potassium (3.5-5.1) mmol/L Chloride (98-107) mmol/L Carbon Dioxide (22-30) mmol/L Anion Gap mmol/L BUN (9-20) mg/dL Creatinine (0.66-1.25) mg/dL Est GFR (CKD-EPI)AfAm (>60 ml/min/1.73 sqM) Est GFR (CKD-EPI)NonAf (>60 ml/min/1.73 sqM) Glucose (74-99) mg/dL Calcium (8.4-10.2) mg/dL Magnesium (1.6-2.3) mg/dL Total Bilirubin (0.2-1.3) mg/dL AST (17-59) U/L ALT (4-49) U/L Alkaline Phosphatase (38-126) U/L Troponin I 0.022 (0.000-0.034) ng/mL NT-Pro-B Natriuret Pep pg/mL Total Protein (6.3-8.2) g/dL Albumin (3.5-5.0) g/dL Disposition Clinical Impression: Acute exacerbation of CHF (congestive heart failure) Disposition: ADMITTED IP TO THIS HOSP Condition: Fair Referrals: John Duarte MD [Primary Care Provider] - 1-2 days Time of Disposition: 11:14
[2023-08-10 10:56] LABS: Anisocytosis Slight; Basophils % (A) 0 %; Eosinophils # (A) 0.1 k/uL (0-0.7); Eosinophils % (A) 1 %; HCT 30.4 % (39.0-53.0); HGB 9.4 gm/dL (13.0-17.5); Hypochromasia Marked; Lymphocytes # (A) 0.4 k/uL (1.0-4.8); Lymphocytes % (A) 7 %; MCH 26.8 pg (25.0-35.0); MCV 86.6 fL (80.0-100.0); Monocytes # (A) 0.4 k/uL (0-1.0); Monocytes % (A) 8 %; Neutrophils # (A) 4.3 k/uL (1.3-7.7); Neutrophils % (A) 82 %; Platelet Count 146 k/uL (150-450); RBC 3.51 m/uL (4.30-5.90); WBC 5.3 k/uL (3.8-10.6)
--- NOTE | 2023-08-10 10:57 | XR ---
EXAMINATION TYPE: XR chest 2V DATE OF EXAM: 08/10/2023 COMPARISON: 06/04/[address] 06/27/2023 HISTORY: 82 year-old male shortness of breath, difficulty breathing TECHNIQUE: PA and lateral views FINDINGS: Median sternotomy wires are present. Annuloplasty ring in the heart. Heart remains mild to moderately enlarged. Diffuse interstitial and vascular density. Lateral view shows small effusions. Some air is noted below the right hemidiaphragm. Probably related to colonic interposition. Possible subtle nodu larity periphery of the left upper lobe. IMPRESSION: 1. Correlate for CHF with pulmonary vascular congestion. 2. There are small bilateral pleural effusions on the lateral view. 3. We note air density below the right hemidiaphragm. This likely relates to some colonic interpositi on. Left decubitus view with if there are signs/symptoms of an acute abdomen or concern for free intr aperitoneal air. 4. Follow-up outpatient CT to exclude underlying left upper lobe pulmonary nodule.
[2023-08-10 10:58] LABS: INR 4.4 (<1.2); Partial Thromboplastin Time 36.7 sec (22.0-30.0); Prothrombin Time 43.4 sec (10.0-12.5)
[2023-08-10 11:00] LABS: ALT 13 U/L (4-49); AST 21 U/L (17-59); African American GFR (CKD) 31 (>60 ml/min/1.73 sqM); Albumin 3.8 g/dL (3.5-5.0); Alkaline Phosphatase 115 U/L (38-126); Anion Gap 8 mmol/L; Blood Urea Nitrogen 52 mg/dL (9-20); Calcium 8.4 mg/dL (8.4-10.2); Carbon Dioxide 20 mmol/L (22-30); Chloride 110 mmol/L (98-107); Glucose 89 mg/dL (74-99); Magnesium 2.1 mg/dL (1.6-2.3); Non-African American GFR(CKD) 27 (>60 ml/min/1.73 sqM); Potassium 5.3 mmol/L (3.5-5.1); Sodium 138 mmol/L (137-145); Total Bilirubin 0.7 mg/dL (0.2-1.3); Total Protein 6.4 g/dL (6.3-8.2)
[2023-08-10 11:07] LABS: NT-Pro-B-Type Natriuretic Pept 10500 pg/mL
[2023-08-10] MEDS: FUROSEMIDE 10 MG/ML 4 ML VIAL IV STA (11:45)
--- NOTE | 2023-08-10 15:43 | P.HPIM ---
History of Present Illness H&P Date: 08/10/23 82 year old M with PMH of CHF EF 45%, AV valve replacement, A-Fib on Coumadin, HTN, HLDA presents to the ED. He reports worsening SOB with exertion ongoing for the past 2-3 weeks. Reports feeling winded after walking a flight of stairs. Complains of minimal lower extremity swelling. Reports 3 pillow orthopnea. Does not follow a low salt diet or fluid restriction. This prompted him to come to the ED. In the ED, he underwent extensive evaluation. Bradycardic with HR in the 50s. CBC Hg 9.4 Hct 30.4 Plt 146. PT 43.4, INR 4.4, APTT 36.7. CMP K 5.3, Cl 110, bicarb 20, BUN 52, Cr 2.22. Mag 2.1. Troponin 0.022. BNP 89549. EKG A-Fib with slow ventricular rate of 47. CXR pulmonary vascular congestion with small bilateral pleural effusions, DRE pulmonary nodule, air density below the right hemidiaphragm. Patient is admitted for CHF exacerbation. General: Non toxic, no distress, appears at stated age Derm: Warm, dry Head: Atraumatic, normocephalic, symmetric Eyes: EOMI, no lid lag, anicteric sclera Mouth: No lip lesion, mucus membranes moist Cardiovascular: S1S2 maria alejandra, no murmur Lungs: Decreased BS bilateral, no rhonchi, no rales, no accessory muscle use Ext: No gross muscle atrophy, 1+ BL LE edema, no contractures Neuro: no focal neuro deficits Psych: Alert, oriented, appropriate affect Based on my assessment of this patient, this patient meets a high complexity level of care. Patient has a CHF with severe exacerbation or progression of disease which poses a threat to life or bodily function. Acute systolic CHF exacerbation: Lasix 40 mg IV QD. Strict intake and outtake. Daily weights. Cardiology consult. Echo ordered. UBALDO on CKD: Likely AOCD. Obtain Iron studies. Transfuse if Hg < 7. Hyperkalemia: Likely due to CKD. Lasix as above. 15g Kayexalate ordered. Supratherapeutic INR: Coumadin dosed per pharmacy. Coumadin 2.5 mg PO MoFr, 5 mg PO [id number]. Normocytic anemia with Thrombocytopenia Chronic conditions: AV valve replacement, A-Fib on Coumadin, HTN, HLDA CODE STATUS: FULL CODE. DVT Prophylaxis: Warfarin. GI Prophylaxis: Designated medical POA if patient is not able to make medical decisions for themselves: I have reviewed the following proposal consultant notes: I have reviewed the results of the following tests: As above. I have ordered the following tests: As above. I have discussed the care of this patient with the following independent historian: I have independently interpreted the following test below: EKG. I have discussed the management of this patient with the following physician: This patient has a high risk of morbidity due to the following reasons: Patient requires IV lasix which requires intensive monitoring for renal toxicity. Past Medical History Past Medical History: Atrial Fibrillation, Hyperlipidemia, Hypertension Additional Past Medical History / Comment(s): . History of Any Multi-Drug Resistant Organisms: None Reported Past Surgical History: Cardiac Valve Replacement Additional Past Surgical History / Comment(s): AORTIC VALVE REPLACED 2007, CARDIOVERSION, JUWAN Past Anesthesia/Blood Transfusion Reactions: No Reported Reaction Past Psychological History: No Psychological Hx Reported Smoking Status: Never smoker Past Alcohol Use History: Daily, Heavy Past Drug Use History: None Reported - Past Family History Mother Family Medical History: No Reported History Additional Family Medical History / Comment(s): " from old age" Father Family Medical History: No Reported History Additional Family Medical History / Comment(s): " from old age" Medications and Allergies Home Medications Medication Instructions Recorded Confirmed Type Furosemide [Lasix] 20 mg PO DAILY 09/12/21 08/10/23 History ALPRAZolam [Xanax] 0.25 mg PO DIRECTED PRN 08/10/23 08/10/23 History Metoprolol Tartrate [Lopressor] 50 mg PO BID 08/10/23 08/10/23 History Potassium Chloride ER [K-Dur 10] 10 meq PO DAILY 08/10/23 08/10/23 History Sacubitril/Valsartan [Entresto 49 0.5 tab PO BID 08/10/23 08/10/23 History mg-51 mg Tablet] Warfarin [Coumadin] 2.5 mg PO MOFR 08/10/23 08/10/23 History Warfarin [Coumadin] 5 mg PO SUTUWETHSA 08/10/23 08/10/23 History Allergies Allergy/AdvReac Type Severity Reaction Status Date / Time shellfish derived Allergy Anaphylaxis Verified 08/10/23 12:22 Physical Exam Vitals: Vital Signs Temp Pulse Resp BP Pulse Ox 08/10/23 15:02 55 L 18 106/56 96 08/10/23 13:00 56 L 18 110/49 95 08/10/23 11:50 52 L 18 105/82 94 L 08/10/23 09:55 97.3 F L 52 L 18 95/52 96 Intake and Output 08/10/23 08/10/23 08/10/23 06:59 14:59 22:59 Other: Weight 78.018 kg Results CBC & Chem 7: 08/10/23 10:30 08/10/23 10:30 Labs: Abnormal Lab Results - Last 24 Hours (Table) 08/10/23 08/10/23 08/10/23 Range/Units 10:30 10:30 10:30 RBC 3.51 L (4.30-5.90) m/uL Hgb 9.4 L (13.0-17.5) gm/dL Hct 30.4 L (39.0-53.0) % RDW 19.0 H (11.5-15.5) % Plt Count 146 L (150-450) k/uL Lymphocytes # 0.4 L (1.0-4.8) k/uL PT 43.4 H (10.0-12.5) sec INR 4.4 H (<1.2) APTT 36.7 H (22.0-30.0) sec Potassium 5.3 H (3.5-5.1) mmol/L Chloride 110 H (98-107) mmol/L Carbon Dioxide 20 L (22-30) mmol/L BUN 52 H (9-20) mg/dL Creatinine 2.22 H (0.66-1.25) mg/dL
[2023-08-10] MEDS ORDERED: WARFARIN 5 MG TAB PO SCH (15:45)
[2023-08-10] MEDS: SODIUM POLYSTYRENE SULFONATE 15 GM/60 ML BOTTLE PO ONE (16:22)
[2023-08-10] MEDS: WARFARIN 0.5 MG TAB PO ONE (17:17)
--- NOTE | 2023-08-10 19:22 | CA ---
Transthoracic Echo Report Name: Serjio Phillips Age: 82 Gender: M : 1940 Exam Date: 08/10/2023 16:20 Exam Location: [facility] Ht (in): 71 Wt (lb): 172 Ordering Physician: Valerio Javier MD Attending/Referring Phys: Grinder Set Up Operator Universal Joaquim Rebolledo RDCS Procedure CPT: Indications: chf Cardiac Hx: Technical Quality: Technically difficult study Contrast 1: Total Dose (mL): Contrast 2: Total Dose (mL): MEASUREMENTS (Male / Female) Normal Values 2D ECHO LV Diastolic Diameter PLAX 6.1 cm 4.2 - 5.9 / 3.9 - 5.3 cm LV Systolic Diameter PLAX 3.3 cm IVS Diastolic Thickness 1.3 cm 0.6 - 1.0 / 0.6 - 0.9 cm LVPW Diastolic Thickness 1.0 cm 0.6 - 1.0 / 0.6 - 0.9 cm LV Relative Wall Thickness 0.4 LVOT Diameter 1.7 cm Aortic Root Diameter 3.9 cm LA Systolic Diameter LX 6.3 cm 3.0 - 4.0 / 2.7 - 3.8 cm DOPPLER AV Peak Velocity 409.6 cm/s AV Peak Gradient 67.1 mmHg AV Mean Velocity 304.4 cm/s AV Mean Gradient 41.7 mmHg AV Velocity Time Integral 97.3 cm LVOT Peak Velocity 115.6 cm/s LVOT Peak Gradient 5.3 mmHg LVOT Velocity Time Integral 14.2 cm LVOT Stroke Volume 31.1 cm??? LVOT Stroke Volume Index 15.7 ml/m??? LVOT Cardiac Index 879.0 cm???/min???m??? AV Area Cont Eq vti 0.3 cm??? AV Area Cont Eq pk 0.6 cm??? MR Peak Velocity 439.7 cm/s MR Peak Gradient 77.3 mmHg Mitral E Point Velocity 119.6 cm/s Mitral A Point Velocity 50.5 cm/s Mitral E to A Ratio 2.4 MV Deceleration Time 115.0 ms TR Peak Velocity 323.8 cm/s TR Peak Gradient 41.9 mmHg FINDINGS Left Ventricle Mildly increased septal wall thickness. Mildly increased left ventricular diastolic diameter. Left ventricular ejection fraction is estimated at 40-45 %. Wall motion abnormality could not be assessed due to poor quality study. Right Ventricle Moderate Right ventricle dilalation. Mild pulmonary hypertension. Right Atrium Moderate Right atrial dilatation. Left Atrium Severely increased left atrial diameter. Mitral Valve Mitral valve thickened. Mild mitral annular calcification. Moderate mitral regurgitation. Aortic Valve Bioprosthetic aortic valve. 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 Av area cont. Eq VTI 0.3 cm2. Tricuspid Valve [id number] tricuspid regurgitation. Pulmonic Valve Not well visualized Pericardium No pericardial effusion. Aorta Normal size aortic root and proximal ascending aorta. CONCLUSIONS LVEF estimated at 40-45% Moderate RA and RV dilatation Severely dilatation Moderate MR Bioprosthetic aortic valve with concerns of severe stenosis. Mean gradient 42 mmHg, acceleration time > 100 ms, VTI ratio <0.25. Previewed by: Dr Bo Garcia (Electronically Signed) Final Date: 10 August 2023 19:21
[2023-08-10] MEDS: SACUBITRIL/VALSARTAN 24 MG-26 MG TABLET PO SCH (20:08)
[2023-08-10] MEDS: METOPROLOL TARTRATE 50 MG TAB PO SCH (20:08)
[2023-08-10] MEDS: ALPRAZolam 0.25 MG TAB PO PRN (21:37)
[2023-08-11 06:59] LABS: INR 3.4 (<1.2); Prothrombin Time 33.4 sec (10.0-12.5)
[2023-08-11 10:25] LABS: Anisocytosis Slight; HCT 29.8 % (39.0-53.0); Hypochromasia Marked; MCH 26.4 pg (25.0-35.0); MCHC 30.2 g/dL (31.0-37.0); MCV 87.3 fL (80.0-100.0); Platelet Count 139 k/uL (150-450); RBC 3.42 m/uL (4.30-5.90); RDW 18.9 % (11.5-15.5); WBC 5.2 k/uL (3.8-10.6)
[2023-08-11 10:56] LABS: African American GFR (CKD) 35 (>60 ml/min/1.73 sqM); Anion Gap 6 mmol/L; Blood Urea Nitrogen 55 mg/dL (9-20); Calcium 8.1 mg/dL (8.4-10.2); Carbon Dioxide 27 mmol/L (22-30); Chloride 108 mmol/L (98-107); Glucose 129 mg/dL (74-99); Non-African American GFR(CKD) 30 (>60 ml/min/1.73 sqM); Sodium 141 mmol/L (137-145)
[2023-08-11 11:28] LABS: Anisocytosis (M) Present; Hypochromasia (M) Present
[2023-08-11 11:29] LABS: Polychromasia Present
[2023-08-11 12:14] LABS: % Iron Saturation 7.29 (15.00-50.00); Ferritin 24.1 ng/mL (22.0-322.0)
--- NOTE | 2023-08-11 12:44 | P.PN ---
Subjective Progress Note Date: 08/11/23 82 year old M with PMH of CHF EF 45%, AV valve replacement, A-Fib on Coumadin, HTN, HLDA presents to the ED. He reports worsening SOB with exertion ongoing for the past 2-3 weeks. Reports feeling winded after walking a flight of stairs. Complains of minimal lower extremity swelling. Reports 3 pillow orthopnea. Does not follow a low salt diet or fluid restriction. This prompted him to come to the ED. In the ED, he underwent extensive evaluation. Bradycardic with HR in the 50s. CBC Hg 9.4 Hct 30.4 Plt 146. PT 43.4, INR 4.4, APTT 36.7. CMP K 5.3, Cl 110, bicarb 20, BUN 52, Cr 2.22. Mag 2.1. Troponin 0.022. BNP 56612. EKG A-Fib with slow ventricular rate of 47. CXR pulmonary vascular congestion with small bilateral pleural effusions, DRE pulmonary nodule, air density below the right hemidiaphragm. Patient is admitted for CHF exacerbation. 2/ Patient was seen and examined. Improved breathing and lower extremity swelling. CBC Hg 9, Hct 29.8, Plt 139. INR 3.4. BMP Cl 108, BUN 55, Cr 2.01, glu 129, Ca 8.1. Iron studies Fe 28, Ferritin 24.1. Echo shows EF 40-45% with severe . General: Non toxic, no distress, appears at stated age Derm: Warm, dry Head: Atraumatic, normocephalic, symmetric Eyes: EOMI, no lid lag, anicteric sclera Mouth: No lip lesion, mucus membranes moist Cardiovascular: S1S2 maria alejandra, systolic murmur Lungs: Decreased BS bilateral, no rhonchi, no rales, no accessory muscle use Ext: No gross muscle atrophy, no edema, no contractures Neuro: no focal neuro deficits Psych: Alert, oriented, appropriate affect Based on my assessment of this patient, this patient meets a high complexity level of care. Patient has a CHF with severe exacerbation or progression of disease which poses a threat to life or bodily function. Acute systolic CHF exacerbation: Lasix 40 mg IV QD. Strict intake and outtake. Daily weights. Cardiology consult. Echo as above. Severe : Awaiting Cardiology recommendations. UBALDO on CKD: Continue to monitor while on Lasix. Supratherapeutic INR: Coumadin dosed per pharmacy. Coumadin 2.5 mg PO MoFr, 5 mg PO [id number]. Normocytic anemia with Thrombocytopenia: Likely AOCD with iron deficiency. Transfuse if Hg < 7. Resolved: Hyperkalemia Chronic conditions: AV valve replacement, A-Fib on Coumadin, HTN, HLDA CODE STATUS: FULL CODE. DVT Prophylaxis: Warfarin. GI Prophylaxis: Designated medical POA if patient is not able to make medical decisions for themselves: I have reviewed the following performance improvement consultant notes: I have reviewed the results of the following tests: CBC, BMP, Iron studies, Echo. I have ordered the following tests: BMP I have discussed the care of this patient with the following independent historian: I have independently interpreted the following test below: I have discussed the management of this patient with the following physician: This patient has a high risk of morbidity due to the following reasons: Patient requires IV lasix which requires intensive monitoring for renal toxicity. Objective - Vital Signs Vital signs: Vital Signs Temp 97.5 F L 08/11/23 07:00 Pulse 66 08/11/23 12:36 Resp 16 08/11/23 10:12 BP 104/54 08/11/23 12:36 Pulse Ox 98 08/11/23 10:12 FiO2 Intake & Output 08/10/23 08/11/23 08/11/23 18:59 06:59 18:59 Intake Total 118 240 Balance 118 240 Weight 78.018 kg 75 kg Intake: Oral 118 240 Other: Voiding Method Toilet Toilet # Voids 2 - Labs CBC & Chem 7: 08/11/23 10:02 08/11/23 10:02 Labs: Abnormal Lab Results - Last 24 Hours (Table) 08/11/23 08/11/23 08/11/23 Range/Units 06:18 06:18 10:02 RBC 3.42 L (4.30-5.90) m/uL Hgb 9.0 L (13.0-17.5) gm/dL Hct 29.8 L (39.0-53.0) % MCHC 30.2 L (31.0-37.0) g/dL RDW 18.9 H (11.5-15.5) % Plt Count 139 L (150-450) k/uL PT 33.4 H (10.0-12.5) sec INR 3.4 H (<1.2) Chloride (98-107) mmol/L BUN (9-20) mg/dL Creatinine (0.66-1.25) mg/dL Glucose (74-99) mg/dL Calcium (8.4-10.2) mg/dL Iron 28 L (65-175) UG/DL % Saturation 7.29 L (15.00-50.00) 08/11/23 Range/Units 10:02 RBC (4.30-5.90) m/uL Hgb (13.0-17.5) gm/dL Hct (39.0-53.0) % MCHC (31.0-37.0) g/dL RDW (11.5-15.5) % Plt Count (150-450) k/uL PT (10.0-12.5) sec INR (<1.2) Chloride 108 H (98-107) mmol/L BUN 55 H (9-20) mg/dL Creatinine 2.01 H (0.66-1.25) mg/dL Glucose 129 H (74-99) mg/dL Calcium 8.1 L (8.4-10.2) mg/dL Iron (65-175) UG/DL % Saturation (15.00-50.00)
[2023-08-11 13:45] VITALS: BMI 23.1
[2023-08-11] MEDS ORDERED: WARFARIN 5 MG TAB PO SCH (15:32)
[2023-08-11] MEDS: FUROSEMIDE 10 MG/ML 4 ML VIAL IV SCH (16:33)
--- NOTE | 2023-08-11 17:11 | P.CRDCN ---
History of Present Illness Consult date: 08/11/23 Chief complaint: shortness of breath History of present illness: History of present illness: Send 82-year-old male with significant past medical history of hypertension, hyperlipidemia, aortic valve replacement, atrial fibrillation, congestive heart failure who presented to the emergency department with worsening shortness of breath. He does follow with Dr. Arrieta in the office. He states over the past couple weeks he has had significant worsening of shortness of breath and is unable to walk 15 feet without having to stop and take a break. Nurse reports that his blood pressures have been low today. Upon reviewing records patient had a prior JUWAN 09/2021 and was recommended for a mitral clip at that time. He has not been evaluated for this. On more recent echo this admission shows more moderate mitral regurgitation, EF of 40-45%, his bioprosthetic aortic valve shows severe stenosis with mean gradient 42. Labs reviewed: Hemoglobin 9.0, creatinine 2.01, potassium 4.0, BNP 10,500, troponin negative. He denies any chest pain or pressure. No dizziness or passing out. EKG shows atrial flutter with a slow ventricular response, 47 bpm. REVIEW OF SYSTEMS: No fever or chills. No cough or expectoration. No diaphoresis. Patient denies headache, dizziness, blurred vision, double vision. Patient denies any stomach discomfort. No nausea, vomiting. No hematochezia. No hematemesis. Denies any black stools or blood in his stools. Denies dysuria or hematuria. No muscle weakness or numbness. No chest pain or pressure. Reports shortness of breath. PHYSICAL EXAMINATION: This is a 82-year-old male in no apparent distress at the time of my examination. HEENT: Head is atraumatic, normocephalic. Pupils are equal, round. Sclerae anic teric. Conjunctivae are clear. Mucous membranes of the mouth are moist. Neck is supple. There is no jugular venous distention. No carotid bruit is heard. CHEST EXAMINATION: Lungs are clear to auscultation. No chest wall tenderness is noted on palpation or with deep breathing. HEART EXAMINATION: Heart irregular rate and rhythm. S1, S2 heard, 3/6 holosystolic murmur crescendo and decrescendo. No gallops or rub. ABDOMEN: Soft, nontender. Bowel sounds are heard. EXTREMITIES: 2+ peripheral pulses with no evidence of peripheral edema and no calf tenderness noted. NEUROLOGIC EXAMINATION: Patient is awake, alert and oriented x3. IMPRESSION AND PLAN: Aortic stenosis status post previous aortic valve replacement, now with severe stenosis Moderate mitral regurgitation Hypertension Atrial fibrillation, persistent Hyperlipidemia Dyslipidemia Acute on chronic systolic heart failure Bradycardia, asymptomatic PLAN: We will continue with diuresis. His symptoms may be related to may be related to severe aortic stenosis, may require further evaluation with JUWAN and C as outpatient. Decrease metoprolol to 12.5mg BID and hold entresto. Will monitor response. I am dictating on behalf of Dr. Emanuel Blevins's history/physical and assessment/plan. Past Medical History Past Medical History: Atrial Fibrillation, Hyperlipidemia, Hypertension Additional Past Medical History / Comment(s): . History of Any Multi-Drug Resistant Organisms: None Reported Past Surgical History: Cardiac Valve Replacement Additional Past Surgical History / Comment(s): AORTIC VALVE REPLACED 2007, CARDIOVERSION, JUWAN Past Anesthesia/Blood Transfusion Reactions: No Reported Reaction Past Psychological History: No Psychological Hx Reported Smoking Status: Never smoker Past Alcohol Use History: Daily, Heavy Additional Past Alcohol Use History / Comment(s): pt stated drinks 3 cans of beer per day and almost daily 5-6 shots whiskey or rum-PER DAUGHTER THE PAT IS CUTTING THIS BACK AND IS TRYING TO CUT OUT WHISKEY Past Drug Use History: None Reported - Past Family History Mother Family Medical History: No Reported History Additional Family Medical History / Comment(s): " from old age" Father Family Medical History: No Reported History Additional Family Medical History / Comment(s): " from old age" Medications and Allergies Home Medications Medication Instructions Recorded Confirmed Type Furosemide [Lasix] 20 mg PO DAILY 09/12/21 08/10/23 History ALPRAZolam [Xanax] 0.25 mg PO DIRECTED PRN 08/10/23 08/10/23 History Metoprolol Tartrate [Lopressor] 50 mg PO BID 08/10/23 08/10/23 History Potassium Chloride ER [K-Dur 10] 10 meq PO DAILY 08/10/23 08/10/23 History Sacubitril/Valsartan [Entresto 49 0.5 tab PO BID 08/10/23 08/10/23 History mg-51 mg Tablet] Warfarin [Coumadin] 2.5 mg PO MOFR 08/10/23 08/10/23 History Warfarin [Coumadin] 5 mg PO SUTUWETHSA 08/10/23 08/10/23 History Allergies Allergy/AdvReac Type Severity Reaction Status Date / Time shellfish derived Allergy Anaphylaxis Verified 08/10/23 12:22 Physical Exam Vitals: Vital Signs Temp Pulse Resp BP BP Pulse Ox 08/11/23 14:40 47 L 16 95/55 96 08/11/23 14:00 16 08/11/23 12:36 66 104/54 08/11/23 10:12 66 16 102/52 98 08/11/23 09:49 91 L 08/11/23 07:00 97.5 F L 65 18 109/59 96 08/11/23 02:00 97.9 F 64 16 108/64 94 L 08/10/23 20:00 97.6 F 65 17 115/68 94 L 08/10/23 15:44 97.3 F L 58 L 16 118/67 97 Intake and Output 08/11/23 08/11/23 08/11/23 06:59 14:59 22:59 Intake Total 240 Balance 240 Intake: Oral 240 Other: Voiding Method Toilet Weight 75 kg 75 kg Results 08/11/23 10:02 08/11/23 10:02 Coagulation 08/11/23 Range/Units 06:18 PT 33.4 H (10.0-12.5) sec CBC 08/11/23 Range/Units 10:02 WBC 5.2 (3.8-10.6) k/uL RBC 3.42 L (4.30-5.90) m/uL Hgb 9.0 L (13.0-17.5) gm/dL Hct 29.8 L (39.0-53.0) % Plt Count 139 L (150-450) k/uL Comprehensive Metabolic Panel 08/11/23 Range/Units 10:02 Sodium 141 (137-145) mmol/L Potassium 4.0 (3.5-5.1) mmol/L Chloride 108 H (98-107) mmol/L Carbon Dioxide 27 (22-30) mmol/L BUN 55 H (9-20) mg/dL Creatinine 2.01 H (0.66-1.25) mg/dL Glucose 129 H (74-99) mg/dL Calcium 8.1 L (8.4-10.2) mg/dL Current Medications Generic Name Dose Route Start Last Admin Trade Name Freq PRN Reason Stop Dose Admin Alprazolam 0.25 mg 08/10/23 15:32 08/10/23 21:37 Alprazolam 0.25 Mg Tab PO 0.25 mg DAILY PRN Administration Insomnia Furosemide 40 mg 08/11/23 09:00 Furosemide 10 Mg/Ml 4 Ml Vial IV DAILY ERICKA Metoprolol Tartrate 50 mg 08/10/23 21:00 08/11/23 12:37 Metoprolol Tartrate 50 Mg Tab PO 50 mg BID ERICKA Administration Miscellaneous Information 1 each 08/10/23 15:44 Warfarin Per Pharmacy MISCELLANE DIRECTED PRN Per Protocol Sacubitril/Valsartan 1 each 08/10/23 21:00 08/11/23 10:07 Sacubitril/Valsartan 24 Mg-26 Mg Tablet PO 1 each BID ERICKA Administration Intake and Output 08/11/23 08/11/23 08/11/23 06:59 14:59 22:59 Intake Total 240 Balance 240 Intake: Oral 240 Other: Voiding Method Toilet Weight 75 kg 75 kg Patient Weight 08/12/23 06:59 Weight 75 kg 08/11/23 10:02 08/11/23 10:02
[2023-08-11] MEDS: WARFARIN 2.5 MG TAB PO ONE (18:12)
[2023-08-11] MEDS: WARFARIN 0.5 MG TAB PO ONE (18:36)
[2023-08-11] MEDS: METOPROLOL TARTRATE 12.5 MG TAB PO SCH (19:54)
[2023-08-11] MEDS: MELATONIN 5 MG TABLET PO SCH (21:55)
[2023-08-12 06:25] LABS: INR 2.4 (<1.2); Prothrombin Time 23.6 sec (10.0-12.5)
[2023-08-12 06:26] LABS: African American GFR (CKD) 34 (>60 ml/min/1.73 sqM); Anion Gap 6 mmol/L; Blood Urea Nitrogen 54 mg/dL (9-20); Calcium 8.2 mg/dL (8.4-10.2); Carbon Dioxide 28 mmol/L (22-30); Chloride 106 mmol/L (98-107); Glucose 82 mg/dL (74-99); Non-African American GFR(CKD) 29 (>60 ml/min/1.73 sqM); Potassium 4.2 mmol/L (3.5-5.1); Sodium 140 mmol/L (137-145)
--- NOTE | 2023-08-12 16:49 | P.PN ---
Subjective Progress Note Date: 08/12/23 This is a 82-year-old male with significant past medical history of hypertension, hyperlipidemia, aortic valve replacement, atrial fibrillation, congestive heart failure who presented to the emergency department with worsening shortness of breath. He does follow with Dr. Arrieta in the office. He states over the past couple weeks he has had significant worsening of shortness of breath and is unable to walk 15 feet without having to stop and take a break. Nurse reports that his blood pressures have been low today. Upon reviewing records patient had a prior JUWAN 09/2021 and was recommended for a mitral clip at that time. He has not been evaluated for this. On more recent echo this admission shows more moderate mitral regurgitation, EF of 40-45%, his bioprosthetic aortic valve shows severe stenosis with mean gradient 42. Labs reviewed: Hemoglobin 9.0, creatinine 2.01, potassium 4.0, BNP 10,500, troponin negative. He denies any chest pain or pressure. No dizziness or passing out. EKG shows atrial flutter with a slow ventricular response, 47 bpm. 08/12/23 Patient sitting up in bedside chair. He reports feeling a little better today with less shortness of breath. No dizziness or syncope. No chest pain. Heart rate in the 60's, blood pressure is better today. He has more energy. PHYSICAL EXAMINATION: This is a 82-year-old male in no apparent distress at the time of my examination. HEENT: Head is atraumatic, normocephalic. Pupils are equal, round. Sclerae anicteric. Conjunctivae are clear. Mucous membranes of the mouth are moist. Neck is supple. There is no jugular venous distention. No carotid bruit is heard. CHEST EXAMINATION: Lungs are clear to auscultation. No chest wall tenderness is noted on palpation or with deep breathing. HEART EXAMINATION: Heart irregular rate and rhythm. S1, S2 heard, 3/6 holosystolic murmur crescendo and decrescendo. No gallops or rub. ABDOMEN: Soft, nontender. Bowel sounds are heard. EXTREMITIES: 2+ peripheral pulses with no evidence of peripheral edema and no calf tenderness noted. NEUROLOGIC EXAMINATION: Patient is awake, alert and oriented x3. IMPRESSION AND PLAN: Aortic stenosis status post previous aortic valve replacement, now with severe stenosis Moderate mitral regurgitation Hypertension Atrial fibrillation, persistent Hyperlipidemia Dyslipidemia Acute on chronic systolic heart failure Bradycardia, asymptomatic PLAN: We will continue with diuresis. His symptoms may be related to may be related to severe aortic stenosis, may require further evaluation with JUWAN and LHC. Continue decreased metoprolol 12.5mg BID and hold entresto. Patient does not feel ready to go home. NPO after midnight for possible LHC and JUWAN with Dr. Mauricio tomorrow. I am dictating on behalf of Dr. Emanuel Blevins's history/physical and asses sment/plan. Objective - Vital Signs Vital signs: Vital Signs Temp 97.8 F 08/12/23 07:00 Pulse 66 08/12/23 10:40 Resp 16 08/12/23 10:40 BP 104/60 08/12/23 10:40 Pulse Ox 98 08/12/23 10:40 FiO2 Intake & Output 08/11/23 08/12/23 08/12/23 18:59 06:59 18:59 Intake Total 480 120 Output Total 100 200 Balance 380 -80 Weight 75 kg 74.3 kg Intake: Oral 480 120 Output: Urine 100 200 Other: Voiding Method Toilet Toilet Toilet # Voids 1 1 - Labs CBC & Chem 7: 08/11/23 10:02 08/12/23 05:49 Labs: Abnormal Lab Results - Last 24 Hours (Table) 08/12/23 08/12/23 Range/Units 05:49 05:49 PT 23.6 H (10.0-12.5) sec INR 2.4 H (<1.2) BUN 54 H (9-20) mg/dL Creatinine 2.06 H (0.66-1.25) mg/dL Calcium 8.2 L (8.4-10.2) mg/dL
--- NOTE | 2023-08-12 17:00 | P.PN ---
Subjective Progress Note Date: 08/12/23 82 year old M with PMH of CHF EF 45%, AV valve replacement, A-Fib on Coumadin, HTN, HLDA presents to the ED. He reports worsening SOB with exertion ongoing for the past 2-3 weeks. Reports feeling winded after walking a flight of stairs. Complains of minimal lower extremity swelling. Reports 3 pillow orthopnea. Does not follow a low salt diet or fluid restriction. This prompted him to come to the ED. In the ED, he underwent extensive evaluation. Bradycardic with HR in the 50s. CBC Hg 9.4 Hct 30.4 Plt 146. PT 43.4, INR 4.4, APTT 36.7. CMP K 5.3, Cl 110, bicarb 20, BUN 52, Cr 2.22. Mag 2.1. Troponin 0.022. BNP 37881. EKG A-Fib with slow ventricular rate of 47. CXR pulmonary vascular congestion with small bilateral pleural effusions, DRE pulmonary nodule, air density below the right hemidiaphragm. Patient is admitted for CHF exacerbation. Started on Lasix 40mg IV QD. Echo shows EF 40-45% with severe . Cardiology consulted, recommended decreasing Metoprolol and holding Entresto, outpatient JUWAN and LHC for evaluation of . 2/ Patient was seen and examined. Improved breathing. No dizziness or chest pain. Daughter on the phone reports Entresto was just prescribed and patient has not started taking it yet. Weight change from 78.018kg to 74.3kg since admission. BP as low as 91/51 HD 63 over the past 24H. INR 2.4. BMP BUN 54, Cr 2.06, Ca 8.2. General: Non toxic, no distress, appears at stated age Derm: Warm, dry Head: Atraumatic, normocephalic, symmetric Eyes: EOMI, no lid lag, anicteric sclera Mouth: No lip lesion, mucus membranes moist Cardiovascular: S1S2 maria alejandra, systolic murmur Lungs: Decreased BS bilateral, no rhonchi, no rales, no accessory muscle use Ext: No gross muscle atrophy, no edema, no contractures Neuro: no focal neuro deficits Psych: Alert, oriented, appropriate affect Based on my assessment of this patient, this patient meets a high complexity level of care. Patient has a CHF with severe exacerbation or progression of disease which poses a threat to life or bodily function. Acute systolic CHF exacerbation: Lasix 40 mg IV QD. Strict intake and outtake. Daily weights. Cardiology on board. Echo as above. Severe : Cardiology recommends JUWAN and LHC possibly tomorrow. UBALDO on CKD: Continue to monitor while on Lasix. Entresto discontinued. Supratherapeutic INR: Coumadin dosed per pharmacy. Coumadin 2.5 mg PO MoFr, 5 mg PO SuTuWeThSa. Normocytic anemia with Thrombocytopenia: Likely iron deficiency (Fe 28, Ferritin 24.1) and AOCD. Transfuse if Hg < 7. Resolved: Hyperkalemia Chronic conditions: AV valve replacement, A-Fib on Coumadin, HTN, HLDA CODE STATUS: FULL CODE. DVT Prophylaxis: Warfarin. GI Prophylaxis: Designated medical POA if patient is not able to make medical decisions for themselves: I have reviewed the following heritage consultant notes: Cardiology note. I have reviewed the results of the following tests: CBC, BMP I have ordered the following tests: BMP I have discussed the care of this patient with the following independent histori an: I have independently interpreted the following test below: I have discussed the management of this patient with the following physician: This patient has a high risk of morbidity due to the following reasons: Patient requires IV lasix which requires intensive monitoring for renal toxicity. Objective - Vital Signs Vital signs: Vital Signs Temp 97.5 F L 08/12/23 02:15 Pulse 63 08/12/23 02:15 Resp 16 08/12/23 02:15 BP 91/51 08/12/23 02:15 Pulse Ox 97 08/12/23 02:15 FiO2 Intake & Output 08/11/23 08/12/23 08/12/23 18:59 06:59 18:59 Intake Total 480 Output Total 100 Balance 380 Weight 75 kg 74.3 kg Intake: Oral 480 Output: Urine 100 Other: Voiding Method Toilet Toilet # Voids 1 - Labs CBC & Chem 7: 08/11/23 10:02 08/12/23 05:49 Labs: Abnormal Lab Results - Last 24 Hours (Table) 08/11/23 08/11/23 08/11/23 Range/Units 06:18 10:02 10:02 RBC 3.42 L (4.30-5.90) m/uL Hgb 9.0 L (13.0-17.5) gm/dL Hct 29.8 L (39.0-53.0) % MCHC 30.2 L (31.0-37.0) g/dL RDW 18.9 H (11.5-15.5) % Plt Count 139 L (150-450) k/uL PT (10.0-12.5) sec INR (<1.2) Chloride 108 H (98-107) mmol/L BUN 55 H (9-20) mg/dL Creatinine 2.01 H (0.66-1.25) mg/dL Glucose 129 H (74-99) mg/dL Calcium 8.1 L (8.4-10.2) mg/dL Iron 28 L (65-175) UG/DL % Saturation 7.29 L (15.00-50.00) 08/12/23 08/12/23 Range/Units 05:49 05:49 RBC (4.30-5.90) m/uL Hgb (13.0-17.5) gm/dL Hct (39.0-53.0) % MCHC (31.0-37.0) g/dL RDW (11.5-15.5) % Plt Count (150-450) k/uL PT 23.6 H (10.0-12.5) sec INR 2.4 H (<1.2) Chloride (98-107) mmol/L BUN 54 H (9-20) mg/dL Creatinine 2.06 H (0.66-1.25) mg/dL Glucose (74-99) mg/dL Calcium 8.2 L (8.4-10.2) mg/dL Iron (65-175) UG/DL % Saturation (15.00-50.00)
[2023-08-12] MEDS: WARFARIN 2.5 MG TAB PO ONE (17:41)
--- NOTE | 2023-08-13 09:08 | P.PN ---
Subjective Progress Note Date: 08/13/23 82 year old M with PMH of CHF EF 45%, AV valve replacement, A-Fib on Coumadin, HTN, HLDA presents to the ED. He reports worsening SOB with exertion ongoing for the past 2-3 weeks. Reports feeling winded after walking a flight of stairs. Complains of minimal lower extremity swelling. Reports 3 pillow orthopnea. Does not follow a low salt diet or fluid restriction. This prompted him to come to the ED. In the ED, he underwent extensive evaluation. Bradycardic with HR in the 50s. CBC Hg 9.4 Hct 30.4 Plt 146. PT 43.4, INR 4.4, APTT 36.7. CMP K 5.3, Cl 110, bicarb 20, BUN 52, Cr 2.22. Mag 2.1. Troponin 0.022. BNP 43169. EKG A-Fib with slow ventricular rate of 47. CXR pulmonary vascular congestion with small bilateral pleural effusions, DRE pulmonary nodule, air density below the right hemidiaphragm. Patient is admitted for CHF exacerbation. Started on Lasix 40mg IV QD. Echo shows EF 40-45% with severe . Cardiology consulted, recommended decreasing Metoprolol and holding Entresto. Patient continued to have exertional shortness of breath. Plans for JUWAN for evaluation of on 08/14. 08/13 Patient was seen and examined. Improved breathing. No dizziness or chest pain. Weight change from 78.018kg to 73.9kg since admission. Plans for JUWAN tomorrow as discussed with Dr. Wren. Coag panel and BMP pending at the time of this note. General: Non toxic, no distress, appears at stated age Derm: Warm, dry Head: Atraumatic, normocephalic, symmetric Eyes: EOMI, no lid lag, anicteric sclera Mouth: No lip lesion, mucus membranes moist Cardiovascular: S1S2 maria alejandra, systolic murmur Lungs: Decreased BS bilateral, no rhonchi, no rales, no accessory muscle use Ext: No gross muscle atrophy, no edema, no contractures Neuro: no focal neuro deficits Psych: Alert, oriented, appropriate affect Based on my assessment of this patient, this patient meets a high complexity level of care. Patient has a CHF with severe exacerbation or progression of disease which poses a threat to life or bodily function. Acute systolic CHF exacerbation: Lasix 40 mg IV QD. Strict intake and outtake. Daily weights. Cardiology on board. Echo as above. Severe : Cardiology recommends JUWAN tomorrow. UBALDO on CKD: Continue to monitor while on Lasix. Entresto discontinued. Supratherapeutic INR: Coumadin dosed per pharmacy. Coumadin 2.5 mg PO MoFr, 5 mg PO SuTuWeThSa. Normocytic anemia with Thrombocytopenia: Likely iron deficiency (Fe 28, Ferritin 24.1) and AOCD. Transfuse if Hg < 7. Resolved: Hyperkalemia Chronic conditions: AV valve replacement, A-Fib on Coumadin, HTN, HLDA CODE STATUS: FULL CODE. DVT Prophylaxis: Warfarin. GI Prophylaxis: Designated medical POA if patient is not able to make medical decisions for t hemselves: I have reviewed the following transformation consultant notes: Cardiology note. I have reviewed the results of the following tests: I have ordered the following tests: Pending: BMP, Coag panel. I have discussed the care of this patient with the following independent historian: I have independently interpreted the following test below: I have discussed the management of this patient with the following physician: Discussed with Dr. Wren. This patient has a high risk of morbidity due to the following reasons: Patient requires IV lasix which requires intensive monitoring for renal toxicity. Objective - Vital Signs Vital signs: Vital Signs Temp 97.5 F L 08/13/23 02:06 Pulse 67 08/13/23 02:06 Resp 16 08/13/23 02:06 BP 107/65 08/13/23 02:06 Pulse Ox 98 08/13/23 02:06 FiO2 Intake & Output 08/12/23 08/13/23 08/13/23 18:59 06:59 18:59 Intake Total 360 Output Total 200 Balance 160 Weight 73.9 kg Intake: Oral 360 Output: Urine 200 Other: Voiding Method Toilet Toilet # Voids 2 1 - Labs CBC & Chem 7: 08/11/23 10:02 08/12/23 05:49
--- NOTE | 2023-08-13 10:15 | P.PN ---
Subjective Progress Note Date: 08/13/23 This is a 82-year-old male with significant past medical history of hypertension, hyperlipidemia, aortic valve replacement, atrial fibrillation, congestive heart failure who presented to the emergency department with worsening shortness of breath. He does follow with Dr. Arrieta in the office. He states over the past couple weeks he has had significant worsening of shortness of breath and is unable to walk 15 feet without having to stop and take a break. Nurse reports that his blood pressures have been low today. Upon reviewing records patient had a prior JUWAN 09/2021 and was recommended for a mitral clip at that time. He has not been evaluated for this. On more recent echo this admission shows more moderate mitral regurgitation, EF of 40-45%, his bioprosthetic aortic valve shows severe stenosis with mean gradient 42. Labs reviewed: Hemoglobin 9.0, creatinine 2.01, potassium 4.0, BNP 10,500, troponin negative. He denies any chest pain or pressure. No dizziness or passing out. EKG shows atrial flutter with a slow ventricular response, 47 bpm. 08/12/23 Patient sitting up in bedside chair. He reports feeling a little better today with less shortness of breath. No dizziness or syncope. No chest pain. Heart rate in the 60's, blood pressure is better today. He has more energy. 08/13 Patient has no new complaints today. No chest pain no shortness of breath. No lower extremity edema. Patient had previous valve surgery done at [facility] many years ago. Blood pressure 113/67, heart rate in the 60s, pulse ox 97% on room air. INR is 2.4. BUN 54 creatinine 2.06. Patient has been maintained on IV Lasix 40 mg daily. Weight is down 1 kg. PHYSICAL EXAMINATION: This is a 82-year-old male in no apparent distress at the time of my examination. HEENT: Head is atraumatic, normocephalic. Pupils are equal, round. Sclerae anicteric. Conjunctivae are clear. Mucous membranes of the mouth are moist. Neck is supple. There is no jugular venous distention. No carotid bruit is heard. CHEST EXAMINATION: Lungs are clear to auscultation. No chest wall tenderness is noted on palpation or with deep breathing. HEART EXAMINATION: Heart irregular rate and rhythm. S1, S2 heard, 3/6 h olosystolic murmur crescendo and decrescendo. No gallops or rub. ABDOMEN: Soft, nontender. Bowel sounds are heard. EXTREMITIES: 2+ peripheral pulses with no evidence of peripheral edema and no calf tenderness noted. NEUROLOGIC EXAMINATION: Patient is awake, alert and oriented x3. IMPRESSION AND PLAN: Aortic stenosis status post previous aortic valve replacement, now with severe stenosis Moderate mitral regurgitation Hypertension Atrial fibrillation, persistent Hyperlipidemia Dyslipidemia Acute on chronic systolic heart failure Bradycardia, asymptomatic PLAN: Continue patient on IV Lasix 40 mg daily Monitor FAUSTINO, daily weights, electrolytes and renal function Patient will be scheduled for JUWAN tomorrow morning with Dr. Joe Mauricio Repeat lab work in the morning N.p.o. after midnight Further recommendations to follow. Plan for left heart cath most likely later as an outpatient. Nurse practitioner note has been reviewed, I agree with documented findings and plan of care. Patient was seen and examined. Objective - Vital Signs Vital signs: Vital Signs Temp 97.6 F 08/13/23 07:00 Pulse 67 08/13/23 07:00 Resp 16 08/13/23 02:06 BP 113/67 08/13/23 07:00 Pulse Ox 97 08/13/23 07:00 FiO2 Intake & Output 08/12/23 08/13/23 08/13/23 18:59 06:59 18:59 Intake Total 360 Output Total 200 Balance 160 Weight 73.9 kg Intake: Oral 360 Output: Urine 200 Other: Voiding Method Toilet Toilet # Voids 2 1 - Labs CBC & Chem 7: 08/11/23 10:02 08/12/23 05:49
[2023-08-13 11:43] LABS: INR 1.6 (<1.2); Prothrombin Time 16.6 sec (10.0-12.5)
[2023-08-13 11:45] LABS: Anion Gap 7 mmol/L; Blood Urea Nitrogen 52 mg/dL (9-20); Calcium 8.6 mg/dL (8.4-10.2); Carbon Dioxide 29 mmol/L (22-30); Chloride 104 mmol/L (98-107); Potassium 4.4 mmol/L (3.5-5.1); Sodium 140 mmol/L (137-145)
[2023-08-13 12:01] LABS: African American GFR (CKD) 42 (>60 ml/min/1.73 sqM); Glucose 150 mg/dL (74-99); Non-African American GFR(CKD) 36 (>60 ml/min/1.73 sqM)
[2023-08-13] MEDS: WARFARIN 5 MG TAB PO ONE (18:17)
[2023-08-14 06:36] LABS: INR 1.6 (<1.2); Prothrombin Time 16.2 sec (10.0-12.5)
[2023-08-14] MEDS: MIDAZOLAM 2 MG/2 ML VIAL IVP ONE (07:30)
[2023-08-14] MEDS: fentaNYL (PF) 50 MCG/1 ML VIAL IVP ONE (07:30)
[2023-08-14] MEDS: BENZOCAINE SPRAY 1 CAN TOPICAL ONE (07:30)
[2023-08-14 08:50] LABS: Blood Urea Nitrogen 42.5 mg/dL (9.0-27.0); Calcium 8.6 mg/dL (8.7-10.3); Carbon Dioxide 26.4 mmol/L (21.6-31.8); Chloride 103 mmol/L (96-109); Glucose 90 mg/dL (70-110); Potassium 4.7 mmol/L (3.5-5.5); Sodium 139 mmol/L (135-145)
[2023-08-14] MEDS: fentaNYL (PF) 50 MCG/ML 2 ML AMP ONE (09:42)
--- NOTE | 2023-08-14 11:02 | P.PN ---
Subjective Progress Note Date: 08/14/23 This is a 82-year-old male with significant past medical history of hypertension, hyperlipidemia, aortic valve replacement, atrial fibrillation, congestive heart failure who presented to the emergency department with worsening shortness of breath. He does follow with Dr. Arrieta in the office. He states over the past couple weeks he has had significant worsening of shortness of breath and is unable to walk 15 feet without having to stop and take a break. Nurse reports that his blood pressures have been low today. Upon reviewing records patient had a prior JUWAN 09/2021 and was recommended for a mitral clip at that time. He has not been evaluated for this. On more recent echo this admission shows more moderate mitral regurgitation, EF of 40-45%, his bioprosthetic aortic valve shows severe stenosis with mean gradient 42. Labs reviewed: Hemoglobin 9.0, creatinine 2.01, potassium 4.0, BNP 10,500, troponin negative. He denies any chest pain or pressure. No dizziness or passing out. EKG shows atrial flutter with a slow ventricular response, 47 bpm. 08/12/23 Patient sitting up in bedside chair. He reports feeling a little better today with less shortness of breath. No dizziness or syncope. No chest pain. Heart rate in the 60's, blood pressure is better today. He has more energy. 08/13 Patient has no new complaints today. No chest pain no shortness of breath. No lower extremity edema. Patient had previous valve surgery done at [facility] many years ago. Blood pressure 113/67, heart rate in the 60s, pulse ox 97% on room air. INR is 2.4. BUN 54 creatinine 2.06. Patient has been maintained on IV Lasix 40 mg daily. Weight is down 1 kg. 08/14 Patient underwent JUWAN this morning and report is not currently available. Dr. Joe Mauricio is planning on cardiac catheterization but will do it as an outpatient. Blood pressure initially after procedure was on the low side but currently 138/83, heart rate 69, pulse ox 94% on 2 L nasal cannula. Blood work for today is creatinine 1.7, BUN 42, INR 1.6. PHYSICAL EXAMINATION: This is a 82-year-old male in no apparent distress at the time of my examination. HEENT: Head is atraumatic, normocephalic. Pupils are equal, round. Sclerae anicteric. Conjunctivae are clear. Mucous membranes of the mouth are moist. Neck is supple. There is no jugular venous distention. No carotid bruit is heard. CHEST EXAMINATION: Lungs are clear to auscultation. No chest wall tenderness is noted on palpation or with deep breathing. HEART EXAMINATION: Heart irregular rate and rhythm. S1, S2 heard, 3/6 holosystolic murmur crescendo and decrescendo. No gallops or rub. ABDOMEN: Soft, nontender. Bowel sounds are heard. EXTREMITIES: 2+ peripheral pulses with no evidence of peripheral edema and no calf tenderness noted. NEUROLOGIC EXAMINATION: Patient is awake, alert and oriented x3. IMPRESSION AND PLAN: Aortic stenosis status post previous aortic valve replacement, now with severe stenosis Moderate mitral regurgitation Hypertension Atrial fibrillation, persistent Hyperlipidemia Dyslipidemia Acute on chronic systolic heart failure Bradycardia, asymptomatic Chronic kidney disease PLAN: Transition IV Lasix to oral 40 mg daily Continue other cardiac medications Continue Coumadin Patient is cleared for discharge by Dr. Joe Mauricio with plan for outpatient cardiac catheterization. Nurse practitioner note has been reviewed, I agree with documented findings and plan of care. Patient was seen and examined. Objective - Vital Signs Vital signs: Vital Signs Temp 97.7 F 08/14/23 02:32 Pulse 69 08/14/23 02:32 Resp 15 08/14/23 02:32 BP 122/64 08/14/23 02:32 Pulse Ox 96 08/14/23 02:32 FiO2 Intake & Output 08/13/23 08/14/23 08/14/23 18:59 06:59 18:59 Intake Total 460 Balance 460 Weight 73.6 kg Intake: Oral 460 Other: Voiding Method Toilet Toilet Urinal Urinal # Voids 3 3 - Labs CBC & Chem 7: 08/11/23 10:02 08/14/23 05:55 Labs: Abnormal Lab Results - Last 24 Hours (Table) 08/13/23 08/13/23 08/14/23 Range/Units 11:16 11:16 05:55 PT 16.6 H 16.2 H (10.0-12.5) sec INR 1.6 H 1.6 H (<1.2) BUN 52 H (9-20) mg/dL Creatinine 1.71 H (0.66-1.25) mg/dL Glucose 150 H (74-99) mg/dL
[2023-08-14 14:04] VITALS: BP 82/48
--- NOTE | 2023-08-14 14:17 | P.DS ---
Providers Date of admission: 08/13/23 07:29 Expected date of discharge: 08/14/23 Attending physician: Chris Kahn MD Consults: 08/10/23 11:29 Consult Physician Routine Consulting Provider: Emanuel Blevins Consult Reason/Comments: CHF Do you want consulting provider notified?: Yes Primary care physician: John Hsu [facility] Course: Discharge Diagnosis: Acute systolic heart failure exacerbation Acute kidney injury on stage III CKD, improved creatinine 1.7 at discharge with baseline creatinine of 1.6. Severe aortic stenosis Atrial fibrillation with a slow ventricular response Supratherapeutic INR, INR 1.6 this morning. Bicytopenia with normocytic anemia and thrombocytopenia History of bioprosthetic aortic valve replacement Hospital Course: Patient is a very pleasant 82-year-old male with a past medical history of atrial fibrillation on anticoagulation with Coumadin, HFrEF with previously known EF of 45%, bioprosthetic aortic valve replacement, chronic kidney disease stage IIIb, hypertension, and hyperlipidemia. She presented to the emergency department on 08/10/2023 secondary to worsening shortness of breath with exertion over the past 2 to 3 weeks. She underwent full evaluation in the emergency department. Vital signs upon arrival show blood pressure 95/52, heart rate 52, respiratory rate 18, temp 97.3 F, and SpO2 of 96% on room air. EKG was completed showing atrial flutter with a slowed ventricular rate of 47 bpm with T wave inversion in lateral leads to, aVL, V4, and V5. Chest x-ray completed showing pulmonary vascular congestion with small bilateral pleural effusions and reports of an air density below the right hemidiaphragm likely relating to some colonic interposition recommending patient follow-up outpatient with CT to exclude underlying left upper lobe pulmonary nodule. Labs completed and reviewed. CBC showing patient to have normocytic anemia with hemoglobin of 9.4 and thrombocytopenia with platelet count of 146. BMP showing hyperkalemia with potassium of 5.3 and acute kidney injury with BUN of 52, creatinine of 2.22, and GFR of 27 with baseline creatinine around 1.6. Magnesium normal findings at 2.1. Liver profile unremarkable. Troponin was 0.022 and proBNP was 10,500. INR supratherapeutic at 4.4. Patient was admitted under our services for acute systolic heart failure exacerbation with consultation to cardiology. Echocardiogram completed 08/10/2023 revealing an EF of 40 to 45% with moderate right atrial and right ventricular dilation, moderate mitral regurgitation, and bioprosthetic aortic valve with concerns of severe stenosis. Cardiology took patient for JUWAN this morning. Recommending patient following up in their office to schedule outpatient cardiac cath and further discussion on recommendations for repeat aortic valve replacement. Physical exam: Vital signs reviewed and stable. General: Nontoxic, no distress and appears stated age. Derm: Skin warm and dry, normal coloration for ethnicity. Head: Atraumatic, normocephalic and symmetric. Eyes: EOMs intact, no lid lag, and anicteric sclera Mouth: no lip lesions, mucus membranes moist Cardiovascular: regular rate and rhythm with normal S1S2, systolic murmur, positive posterior tibial pulses bilaterally, and cap refill < 2 seconds. Lungs: Respirations even, regular, and unlabored on room air. Lungs CTA bilaterally, no rhonchi, no rales, no wheezing, and no accessory muscle usage. Abdominal: soft, nontender to palpation, no guarding, no appreciable organomegaly Ext: ROM intact. No gross muscle atrophy, no edema, no contractures Neuro: Speech clear, face symmetrical and CN II-XII grossly intact with no noted focal neuro deficits Psych: Alert and oriented to person, place, time, and situation. Appropriate and pleasant affect. A total of 35 minutes of time were spent preparing this complex discharge summary. Pt was discharged on 08/14/2023 at 2:14 PM. Patient was seen independently by Nurse Practitioner. This document was prepared using [employer] dictation software. Please allow for errors in holter technician while rare they do occur. Narciso Pandey NP rendered care for this patient independently, reviewed the findings and plan as documented in the note above. I did not physically speak with or examine the patient on this date. Patient Condition at Discharge: Fair Plan - Discharge Summary Discharge Rx Participant: No New Discharge Prescriptions: New Furosemide [Lasix] 40 mg PO DAILY 90 Days #90 tab Metoprolol Tartrate [Lopressor] 12.5 mg PO BID 90 Days #180 tab Continue ALPRAZolam [Xanax] 0.25 mg PO DIRECTED PRN PRN Reason: Insomnia Warfarin [Coumadin] 2.5 mg PO MOFR Warfarin [Coumadin] 5 mg PO SUTUWETHSA Discontinued Furosemide [Lasix] 20 mg PO DAILY Sacubitril/Valsartan [Entresto 49 mg-51 mg Tablet] 0.5 tab PO BID Potassium Chloride ER [K-Dur 10] 10 meq PO DAILY Metoprolol Tartrate [Lopressor] 50 mg PO BID Discharge Medication List ALPRAZolam [Xanax] 0.25 mg PO DIRECTED PRN 08/10/23 [History] Warfarin [Coumadin] 2.5 mg PO MOFR 08/10/23 [History] Warfarin [Coumadin] 5 mg PO SUTUWETHSA 08/10/23 [History] Furosemide [Lasix] 40 mg PO DAILY 90 Days #90 tab 08/14/23 [Rx] Metoprolol Tartrate [Lopressor] 12.5 mg PO BID 90 Days #180 tab 08/14/23 [Rx] Follow up Appointment(s)/Referral(s): John Duarte MD [Primary Care Provider] - 1-2 days Thomas Mauricio MD [STAFF PHYSICIAN] - 09/05/23 4:30 pm [facility] Visiting Nurse, [NON-STAFF] - 1 Week Ambulatory/Diagnostic Orders: Basic Metabolic Panel [LAB.AMB] Time Frame: 3 Days, Location: None Selected Prothrombin Time INR [LAB.AMB] Time Frame: 3 Days, Facility: [facility], Location: [facility] Patient Instructions/Handouts: Heart Failure (ER), Heart Catheterization (GEN) Activity/Diet/Wound Care/Special Instructions: Activity: As tolerated. Take breaks as needed. Diet: Heart healthy and carb consistent diet. Avoid salts, or foods with hidden salts such as canned or boxed foods and frozen dinners. Extra salt makes your heart work harder and traps the fluid in your body for longer. Special Instructions: Take all of your medications as directed and remember to keep all of your doctor's appointments and follow-up as needed. Thank you for allowing us to participate in your care, it was truly a pleasure having you for our patient!!! Discharge Disposition: HOME WITH HOME HEALTH SERVICES
[2023-08-14 15:03] VITALS: PULSE 62; RESP 16; TEMP 97.5
[2023-08-14] MEDS ORDERED: WARFARIN 5 MG TAB PO ONE (18:00)
[2023-08-15] MEDS ORDERED: FUROSEMIDE 40 MG TAB PO SCH (09:00)
--- NOTE | 2023-08-31 10:01 | ECHOT ---
TRANSESOPHAGEAL ECHOCARDIOGRAM INDICATION: To evaluate the prosthetic aortic valve and mitral regurgitation. PROCEDURE NOTE: After obtaining informed consent, transesophageal echocardiogram was performed in left lateral position using an Omniplane probe. Local and IV sedation were obtained using Xylocaine spray, Versed, and fentanyl. Total sedation time was 10 minutes. The patient tolerated the procedure well without any obvious immediate complications. FINDINGS: 1. Aortic valve is a bioprosthetic valve that shows restricted leaflet mobility. There is no significant aortic regurgitation. There are degenerative changes. By planimetry, the valve area was 0.6 sq cm. Mitral valve shows partial flail of the anterior mitral leaflet with severe posteriorly directed mitral regurgitation. Left atrium appears severely enlarged. Interatrial septum, there is evidence of [id number] shunt by color-flow Doppler. There is mild tricuspid regurgitation noted. Right atrium and right ventricle seem within normal limits. 2. Left ventricle has normal size and shows preserved LV function with an ejection fraction of 50%. There is moderate tricuspid regurgitation noted. CONCLUSION: 1. Severe posteriorly directed mitral regurgitation. 2. 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 MMODL / IJN: [id number] /
== END 2023-08-14 16:44 | disposition home health service (06) | DRG 291 ==
LOC: EC 09:54 → 6NMEDSUR 11:16 → OBSVTOIN 08-13 07:29
PROVIDERS: ADMIT Student in an Organized Health Care Education/Training Program; ATTEND Student in an Organized Health Care Education/Training Program
PROC: B245ZZ4 Ultrasonography of Left Heart, Transesophageal (ICD-10-PCS; principal; 2023-08-14 10:30)
DX: I13.0 Hypertensive heart and chronic kidney disease with heart failure and stage 1 through stage 4 chronic kidney disease, or unspecified chronic kidney disease (principal); I50.23 Acute on chronic systolic (congestive) heart failure; N17.9 Acute kidney failure, unspecified; I48.19 Other persistent atrial fibrillation; I48.92 Unspecified atrial flutter; D69.6 Thrombocytopenia, unspecified; D63.1 Anemia in chronic kidney disease; Z95.3 Presence of xenogenic heart valve; F10.20 Alcohol dependence, uncomplicated; N18.32 Chronic kidney disease, stage 3b; I08.0 Rheumatic disorders of both mitral and aortic valves; E78.5 Hyperlipidemia, unspecified; E87.5 Hyperkalemia; R79.1 Abnormal coagulation profile; R91.1 Solitary pulmonary nodule; R26.2 Difficulty in walking, not elsewhere classified; Z79.01 Long term (current) use of anticoagulants; Z79.899 Other long term (current) drug therapy
CPT/HCPCS: 36415; 71046; 80048; 80053; 82728; 83540; 83550; 83735; 83880; 84484; 85025; 85027; 85610; 85730; 93005; 93306; 93312; 93320; 93325; 94760; 96374; 99285

== ENCOUNTER → 2023-08-30 | Outpatient (CLI) | payer MEDICARE, BC ==
[2023-08-30 19:46] LABS: HCT 27.4 % (39.6-50.0); HGB 8.1 g/dL (13.0-17.0); MCH 25.5 pg (27.0-32.0); MCHC 29.6 g/dL (32.0-37.0); MCV 86.2 FL (80.0-97.0); Mean Platelet Volume 12.9 FL (9.5-12.2); NRBC Per 100 WBC 0 X 10*3/uL (0.00-0.01); Platelet Count 132 X 10*3/uL (140-440); RBC 3.18 X 10*6/uL (4.40-5.60); RDW 18.1 % (11.5-14.5); WBC 4.61 X 10*3/uL (4.50-10.00)
[2023-08-30 21:02] LABS: Blood Urea Nitrogen 35.1 mg/dL (9.0-27.0); Carbon Dioxide 27.5 mmol/L (21.6-31.8); Chloride 104 mmol/L (96-109); Potassium 4.1 mmol/L (3.5-5.5); Sodium 142 mmol/L (135-145)
== END | disposition home or self-care (01) ==
LOC: LABPAT 12:23
PROVIDERS: ATTEND Internal Medicine Cardiovascular Disease
DX: Z01.812 Encounter for preprocedural laboratory examination (principal); I73.9 Peripheral vascular disease, unspecified; T82.03XA Leakage of heart valve prosthesis, initial encounter
CPT/HCPCS: 80051; 82565; 84520; 85027

== ENCOUNTER 2023-09-05 05:45 | Day surgery (SDC) | payer MEDICARE, BC ==
[2023-09-04 10:17] VITALS: BMI 23.5
[2023-09-05] MEDS ORDERED: HEPARIN SODIUM,PORCINE (1 ML) 2,500 UNIT in SODIUM CHLORIDE 0.9% 250 ML IRRIGATION PRN (06:10)
[2023-09-05] MEDS ORDERED: ASPIRIN 325 MG TAB PO STA (06:10)
[2023-09-05] MEDS ORDERED: ALPRAZolam 0.5 MG TAB PO PRN (06:10)
[2023-09-05] MEDS ORDERED: ATORVASTATIN 80 MG TAB PO STA (06:10)
[2023-09-05] MEDS ORDERED: HEPARIN SODIUM,PORCINE 10,000 UNIT in SODIUM CHLORIDE 0.9% 1,000 ML IRRIGATION PRN (06:10)
[2023-09-05] MEDS ORDERED: NITROGLYCERIN SL TABS 0.4 MG TAB SUBLINGUAL PRN (06:10)
[2023-09-05] MEDS ORDERED: ALPRAZolam 0.25 MG TAB PO PRN (06:10)
[2023-09-05] MEDS: SODIUM CHLORIDE 0.9% 1,000 ML in EMPTY BAG 1 BAG IV ONE (06:28)
[2023-09-05 06:37] VITALS: RESP 18; TEMP 97
[2023-09-05 06:54] LABS: INR 1.3 (<1.2); Prothrombin Time 13.9 sec (10.0-12.5)
[2023-09-05] MEDS: LIDOCAINE 1% INJ 10MG/ML (20 ML MDV) SQ ONE (07:34)
[2023-09-05] MEDS: MIDAZOLAM 2 MG/2 ML VIAL IVP ONE ×2 (07:39→07:42)
[2023-09-05] MEDS: IOPAMIDOL-370 100ML BTL INTRATHECA ONE (08:16)
[2023-09-05] MEDS ORDERED: RX INFO: IV CONTRAST WAS GIVEN 1 EACH MISC MISCELLANE PRN (08:48)
[2023-09-05] MEDS ORDERED: SODIUM CHLORIDE 0.9% 1,000 ML IV SCH (09:00)
[2023-09-05] MEDS: SODIUM CHLORIDE 0.9% 500 ML 500 ML IV ONE (12:30)
--- NOTE | 2023-09-05 12:31 | CC ---
CARDIAC CATHETERIZATION REPORT INDICATION: Aortic stenosis. PROCEDURE NOTE: After obtaining informed consent, left heart catheterization and coronary angiogram were performed via the right femoral artery using standard Dax catheters. The left ventricular hemodynamics and the transvalvular pressure gradients were obtained using an AL2 catheter. The patient tolerated the procedure well without any obvious immediate complications and manual hemostasis was obtained. I initially obtained right radial artery access to perform a right radial catheterization. However, because of very tortuous subclavian artery, I was not able to advance the Glidewire into the ascending aorta. Hence I decided to proceed with the femoral catheterization, which was completed uneventfully. FINDINGS: 1. Hemodynamics: Left ventricular end-diastolic pressure is 18 mm. The mean gradient across the aortic valve is 54 mm while the peak gradient was 50 mm. 2. Left ventriculogram: Left ventriculogram was not performed. 3. Angiographic data: a.Right coronary artery: Right coronary artery is a large dominant vessel that shows mild nonobstructive disease. Left main coronary artery is calcified, but is free of significant stenosis, divides into left anterior descending coronary artery and circumflex coronary artery. LAD and its branches show mild nonobstructive disease. Circumflex coronary artery and its branches show mild disease. CONCLUSION: Mild nonobstructive coronary artery disease, severe stenosis involving the prosthetic valve with a peak gradient of 50 mm and a mean gradient of 32 mm across the valve. PLAN: I am going to refer the patient to [facility]. SARAH / GALEN: [id number] /
[2023-09-05 14:18] VITALS: BP 118/59; PULSE 66
== END 2023-09-05 14:51 | disposition home or self-care (01) ==
LOC: CATHCVL 05:45
PROVIDERS: ATTEND Internal Medicine Cardiovascular Disease
DX: T82.857A Stenosis of other cardiac prosthetic devices, implants and grafts, initial encounter (principal); T82.03XA Leakage of heart valve prosthesis, initial encounter; I35.0 Nonrheumatic aortic (valve) stenosis; I25.10 Atherosclerotic heart disease of native coronary artery without angina pectoris; I73.9 Peripheral vascular disease, unspecified; I50.9 Heart failure, unspecified; Z95.2 Presence of prosthetic heart valve; Z79.899 Other long term (current) drug therapy; Y83.8 Other surgical procedures as the cause of abnormal reaction of the patient, or of later complication, without mention of misadventure at the time of the procedure
CPT/HCPCS: 93458; 85610; C1769 ×5; C1894 ×2; J2250; J2001; Q9967

== ENCOUNTER 2023-09-20 06:34 | Outpatient (CLI) | payer MEDICARE, BC ==
[2023-09-20] MEDS ORDERED: EMPTY BAG 1 BAG with SODIUM CHLORIDE 0.9% 1,000 ML IV ONE ×2 (07:25→08:00)
[2023-09-20 07:57] LABS: Anisocytosis Slight; Basophils % (A) 1 %; Eosinophils # (A) 0.1 k/uL (0-0.7); Eosinophils % (A) 1 %; HCT 29.6 % (39.0-53.0); HGB 8.8 gm/dL (13.0-17.5); Hypochromasia Marked; Lymphocytes # (A) 0.5 k/uL (1.0-4.8); Lymphocytes % (A) 9 %; MCH 25.2 pg (25.0-35.0); MCHC 29.6 g/dL (31.0-37.0); MCV 84.9 fL (80.0-100.0); Mean Platelet Volume 10.6; Monocytes # (A) 0.5 k/uL (0-1.0); Monocytes % (A) 8 %; Neutrophils # (A) 4.3 k/uL (1.3-7.7); Neutrophils % (A) 79 %; Platelet Count 148 k/uL (150-450); Poikilocytosis Slight; RBC 3.49 m/uL (4.30-5.90); RDW 17.3 % (11.5-15.5); WBC 5.5 k/uL (3.8-10.6)
[2023-09-20 08:04] LABS: ALT 14 U/L (4-49); AST 22 U/L (17-59); African American GFR (CKD) 36 (>60 ml/min/1.73 sqM); Albumin 3.7 g/dL (3.5-5.0); Albumin/Globulin Ratio 1.2; Alkaline Phosphatase 120 U/L (38-126); Anion Gap 10 mmol/L; Bilirubin,Unconjugated 0.4 mg/dL (0.0-1.1); Blood Urea Nitrogen 44 mg/dL (9-20); Calcium 8.5 mg/dL (8.4-10.2); Carbon Dioxide 25 mmol/L (22-30); Chloride 105 mmol/L (98-107); Glucose 96 mg/dL (74-99); Magnesium 2.3 mg/dL (1.6-2.3); Non-African American GFR(CKD) 31 (>60 ml/min/1.73 sqM); Potassium 4.7 mmol/L (3.5-5.1); Sodium 140 mmol/L (137-145); Total Bilirubin 0.7 mg/dL (0.2-1.3); Total Protein 6.7 g/dL (6.3-8.2)
[2023-09-20 08:12] LABS: INR 1.7 (<1.2); Partial Thromboplastin Time 30.4 sec (22.0-30.0); Prothrombin Time 17.7 sec (10.0-12.5)
[2023-09-20 08:13] LABS: NT-Pro-B-Type Natriuretic Pept 7410 pg/mL
[2023-09-20 08:39] LABS: Appearance,Urine Clear (Clear); Bilirubin,Urine Negative (Negative); Blood,Urine Negative (Negative); Color,Urine Colorless; Glucose,Urine (UA) Negative (Negative); Hyaline Casts,Urine 11 /lpf (0-2); Ketones,Urine Negative (Negative); Leukocyte Esterase,Urine Small (Negative); Mucus,Urine Rare /hpf; Nitrite,Urine Negative (Negative); PH, Urine 6.5 (5.0-8.0); Protein,Urine Trace (Negative); Specific Gravity,Urine 1.012 (1.001-1.035); WBC,Urine 4 /hpf (0-5)
[2023-09-20 11:55] LABS: Chol/HDL Ratio 2.34 Ratio; LDL Cholesterol,Calculated 62.1 mg/dL (0.0-131.0); VLDL Calculation 11.06 mg/dL (5.00-40.00)
[2023-09-20] MEDS: FUROSEMIDE 40 MG TAB PO STA (13:38)
[2023-09-20] MEDS: WARFARIN 5 MG TAB PO ONE (13:38)
[2023-09-20] MEDS: METOPROLOL TARTRATE 12.5 MG TAB PO STA (13:38)
== END 2023-09-20 14:00 | disposition home or self-care (01) ==
LOC: LABWHC1 06:34
PROVIDERS: ATTEND Thoracic Surgery (Cardiothoracic Vascular Surgery)
DX: Z01.818 Encounter for other preprocedural examination (principal); I35.1 Nonrheumatic aortic (valve) insufficiency; I35.0 Nonrheumatic aortic (valve) stenosis; E87.8 Other disorders of electrolyte and fluid balance, not elsewhere classified; E11.9 Type 2 diabetes mellitus without complications; N28.9 Disorder of kidney and ureter, unspecified; E78.5 Hyperlipidemia, unspecified; E07.9 Disorder of thyroid, unspecified; R58 Hemorrhage, not elsewhere classified; R35.0 Frequency of micturition; Z79.01 Long term (current) use of anticoagulants; Z79.899 Other long term (current) drug therapy
CPT/HCPCS: 94150; 83880; 80061; 80053; 84443; 82248; 83735; 85025; 85610; 85730; 81001; 87086; 83036; 71275; 74174; 36415; Q9967

== ENCOUNTER 2023-10-12 03:05 | Inpatient (IN) | payer MEDICARE, BC ==
--- NOTE | 2023-10-12 04:06 | ED ---
General Adult HPI - General Chief complaint: Extremity Problem,Nontraumatic Stated complaint: leg swelling Time Seen by Provider: 10/12/23 03:19 Source: patient, family Mode of arrival: EMS Limitations: no limitations - History of Present Illness Initial comments: Serjio is a pleasant 82-year-old gentleman who presents the ER today reporting that he just cannot get any sleep that his legs are getting more and more swollen he cannot get comfortable. Patient is scheduled to undergo a TAVR procedure next week patient states that he is supposed to sleep and is sitting upright position at least 45 degrees elevated and he just cannot fall asleep or stay asleep. Patient states he was previously on Xanax nightly to help him sleep but his primary care did not feel it was safe at his age and has weaned him off of that. Patient states he is just feeling really restless his legs are swollen he cannot get comfortable he cannot get a deep breath and he cannot sleep. - Related Data Home Medications Medication Instructions Recorded Confirmed RX: Warfarin [Coumadin] 2.5 mg PO MOFR 08/10/23 10/10/23 RX: Warfarin [Coumadin] 5 mg PO SUTUWETHSA 08/10/23 10/10/23 Cyanocobalamin (Vitamin B-12) 5,000 mcg PO DAILY 10/10/23 10/10/23 [Vitamin B-12] Ferrous Sulfate [Feosol] 325 mg PO DAILY 10/10/23 10/10/23 Folate 800 mcg PO DAILY 10/10/23 10/10/23 Previous Rx's Medication Instructions Recorded RX: Furosemide [Lasix] 40 mg PO DAILY 90 Days #90 tab 08/14/23 RX: Metoprolol Tartrate [Lopressor] 12.5 mg PO BID 90 Days #180 tab 08/14/23 Allergies Allergy/AdvReac Type Severity Reaction Status Date / Time shellfish derived Allergy Anaphylaxis Verified 10/12/23 03:08 Milk Containing Products AdvReac "Diarrhea" Verified 10/12/23 03:08 (Dairy) [Dairy] Review of Systems ROS Statement: Those systems with pertinent positive or pertinent negative responses have been documented in the HPI. ROS Other: All systems not noted in ROS Statement are negative. Past Medical History Past Medical History: Atrial Fibrillation, Hyperlipidemia, Hypertension Additional Past Medical History / Comment(s): aortic stenosis,anemia History of Any Multi-Drug Resistant Organisms: None Reported Past Surgical History: Cardiac Valve Replacement Additional Past Surgical History / Comment(s): AORTIC VALVE REPLACED 2007, CARDIOVERSION, JUWAN Past Anesthesia/Blood Transfusion Reactions: No Reported Reaction Additional Past Anesthesia/Blood Transfusion Reaction / Comment(s): unk if blood transfusion in past Past Psychological History: No Psychological Hx Reported Smoking Status: Never smoker Past Alcohol Use History: Daily Past Drug Use History: None Reported - Past Family History Mother Family Medical History: Dementia Additional Family Medical History / Comment(s): " from old age" Father Family Medical History: Cancer Additional Family Medical History / Comment(s): " from old age" unknown type of cancer. General Exam - General Exam Comments Initial Comments: Physical Exam GENERAL: Patient is well-developed and well-nourished. Patient is nontoxic and well-hydrated and is in no distress. HENT: Normocephalic, Atraumatic. EYES: PERRL, EOMI PULMONARY: Crackles at bases CARDIOVASCULAR: RRR Warm and well perfused extremities ABDOMEN: Non-distended SKIN: No rashes or bruising : Deferred NEUROLOGIC: Alert and oriented MUSCULOSKELETAL: 3+ pitting edema bilateral lower extremities PSYCHIATRIC: No SI/HI Limitations: no limitations Course Vital Signs 10/12/23 10/12/23 03:08 04:43 Temperature 98.6 F 99.9 F H Pulse Rate 81 Respiratory 23 Rate Blood Pressure 109/65 O2 Sat by Pulse 87 L Oximetry EKG Findings - EKG Comments: EKG Findings:: EKG interpreted by me EKG obtained due to complaint of shortness of breath EKG obtained at 4:20 AM rate is 70 rhythm is narrow complex and regular appears to be sinus rhythm however there is significant artifact noted. ST depressions laterally with no acute ST elevations noted. Medical Decision Making - Medical Decision Making Was pt. sent in by a medical professional or institution (, PA, OCCUPATIONAL HEALTH PROFESSIONAL, urgent care, hospital, or long term...) When possible be specific @ -[No] Did you speak to anyone other than the patient for history (EMS, parent, family, police, friend...)? What history was obtained from this source @ -Family, EMS Did you review nursing and triage notes (agree or disagree)? Why? @ -[I reviewed and agree with nursing and triage notes] Were old charts reviewed (outside hosp., previous admission, EMS record, old EKG, old radiological studies, urgent care reports/EKG's, long term records)? Report findings @ -Previous visits and labs were reviewed Differential Diagnosis (chest pain, altered mental status, abdominal pain women, abdominal pain men, vaginal bleeding, weakness, fever, dyspnea, syncope, headache, dizziness, GI bleed, back pain, seizure, CVA, palpatations, mental health)? @ -[not applicable] EKG interpreted by me (3pts min.). @ -[As above] X-rays interpreted by me (1pt min.). @ -Cardiomegaly, bilateral pleural effusions, poor inspiration, evidence of previous CABG CT interpreted by me (1pt min.). @ -[None done] U/S interpreted by me (1pt. min.). @ -[None done] What testing was considered but not performed or refused? (CT, X-rays, U/S, labs)? Why? @ -[None] What meds were considered but not given or refused? Why? @ -[None] Did you discuss the management of the patient with other professionals (professionals i.e. , PA, OCCUPATIONAL HEALTH PROFESSIONAL, lab, RT, psych nurse, social work supervisor, crew dispatcher, teacher, restoration officer, case operator)? Give summary @ -Discussed with admitting physician Was smoking cessation discussed for >3mins.? @ -[No] Was critical care preformed (if so, how long)? @ -[No] Were there social determinants of health that impacted care today? How? (Homelessness, low income, unemployed, alcoholism, drug addiction, transportation, low edu. Level, literacy, decrease access to med. care, residential, rehab)? @ -[No] Was there de-escalation of care discussed even if they declined (Discuss DNR or withdrawal of care, Hospice)? DNR status @ -Yes What co-morbidities impacted this encounter? (DM, HTN, Smoking, COPD, CAD, Cancer, CVA, ARF, Chemo, Hep., AIDS, mental health diagnosis, sleep apnea, morbid obesity)? @ -[None] Was patient admitted / discharged? Hospital course, mention meds given and route, prescriptions, significant lab abnormalities, going to OR and other pertinent info. @ -Admit Patient was seen and evaluated patient clearly in a CHF exacerbation. Labs were obtained, patient has elevated BUN and worsening creatinine consistent with intravascular fluid depletion, despite this patient is grossly fluid overloaded, patient also has elevated troponin likely due to CHF exacerbation. Patient's temperature is elevated though not febrile patient has leukocytosis therefore Cepheid swab and blood cultures were obtained. Patient will be admitted for CHF exacerbation and for medical optimization prior to surgery. Undiagnosed new problem with uncertain prognosis? @ -[No] Drug Therapy requiring intensive monitoring for toxicity (Heparin, Nitro, Insulin, Cardizem)? @ -[No] Were any procedures done? @ -[No] Diagnosis/symptom? @ -CHF Acute, or Chronic, or Acute on Chronic? @ -Acute on chronic Uncomplicated (without systemic symptoms) or Complicated (systemic symptoms)? @ -Complicated Side effects of treatment? @ -[No] Exacerbation, Progression, or Severe Exacerbation? @ -Exacerbation Poses a threat to life or bodily function? How? (Chest pain, USA, MS, pneumonia, PE, COPD, DKA, ARF, appy, cholecystitis, CVA, Diverticulitis, Homicidal, Suicidal, threat to staff... and all critical care pts) @ -Yes - Lab Data Result diagrams: 10/12/23 04:20 10/12/23 04:20 Lab Results 10/12/23 10/12/23 10/12/23 Range/Units 04:20 04:20 04:20 WBC 14.7 H (3.8-10.6) k/uL RBC 3.46 L (4.30-5.90) m/uL Hgb 8.3 L (13.0-17.5) gm/dL Hct 28.4 L (39.0-53.0) % MCV 82.1 (80.0-100.0) fL MCH 23.9 L (25.0-35.0) pg MCHC 29.1 L (31.0-37.0) g/dL RDW 18.3 H (11.5-15.5) % Plt Count 118 L (150-450) k/uL MPV 10.7 Neutrophils % 91 % Lymphocytes % 1 % Monocytes % 7 % Eosinophils % 0 % Basophils % 0 % Neutrophils # 13.3 H (1.3-7.7) k/uL Lymphocytes # 0.2 L (1.0-4.8) k/uL Monocytes # 1.1 H (0-1.0) k/uL Eosinophils # 0.1 (0-0.7) k/uL Basophils # 0.0 (0-0.2) k/uL Hypochromasia Marked Poikilocytosis Slight Anisocytosis Slight Microcytosis Slight PT 26.9 H (10.0-12.5) sec INR 2.7 H (<1.2) APTT 30.0 (22.0-30.0) sec Sodium 136 L (137-145) mmol/L Potassium 4.3 (3.5-5.1) mmol/L Chloride 104 (98-107) mmol/L Carbon Dioxide 23 (22-30) mmol/L Anion Gap 9 mmol/L BUN 57 H (9-20) mg/dL Creatinine 2.22 H (0.66-1.25) mg/dL Est GFR (CKD-EPI)AfAm 31 (>60 ml/min/1.73 sqM) Est GFR (CKD-EPI)NonAf 27 (>60 ml/min/1.73 sqM) Glucose 88 (74-99) mg/dL Calcium 8.4 (8.4-10.2) mg/dL Magnesium 2.2 (1.6-2.3) mg/dL Total Bilirubin 0.9 (0.2-1.3) mg/dL AST 24 (17-59) U/L ALT 14 (4-49) U/L Alkaline Phosphatase 126 (38-126) U/L Troponin I (0.000-0.034) ng/mL NT-Pro-B Natriuret Pep 79435 pg/mL Total Protein 6.2 L (6.3-8.2) g/dL Albumin 3.4 L (3.5-5.0) g/dL Influenza Type A (PCR) (Not Detectd) Influenza Type B (PCR) (Not Detectd) RSV (PCR) (Not Detectd) SARS-CoV-2 (PCR) (Not Detectd) 10/12/23 10/12/23 Range/Units 04:20 04:30 WBC (3.8-10.6) k/uL RBC (4.30-5.90) m/uL Hgb (13.0-17.5) gm/dL Hct (39.0-53.0) % MCV (80.0-100.0) fL MCH (25.0-35.0) pg MCHC (31.0-37.0) g/dL RDW (11.5-15.5) % Plt Count (150-450) k/uL MPV Neutrophils % % Lymphocytes % % Monocytes % % Eosinophils % % Basophils % % Neutrophils # (1.3-7.7) k/uL Lymphocytes # (1.0-4.8) k/uL Monocytes # (0-1.0) k/uL Eosinophils # (0-0.7) k/uL Basophils # (0-0.2) k/uL Hypochromasia Poikilocytosis Anisocytosis Microcytosis PT (10.0-12.5) sec INR (<1.2) APTT (22.0-30.0) sec Sodium (137-145) mmol/L Potassium (3.5-5.1) mmol/L Chloride (98-107) mmol/L Carbon Dioxide (22-30) mmol/L Anion Gap mmol/L BUN (9-20) mg/dL Creatinine (0.66-1.25) mg/dL Est GFR (CKD-EPI)AfAm (>60 ml/min/1.73 sqM) Est GFR (CKD-EPI)NonAf (>60 ml/min/1.73 sqM) Glucose (74-99) mg/dL Calcium (8.4-10.2) mg/dL Magnesium (1.6-2.3) mg/dL Total Bilirubin (0.2-1.3) mg/dL AST (17-59) U/L ALT (4-49) U/L Alkaline Phosphatase (38-126) U/L Troponin I 0.067 H* (0.000-0.034) ng/mL NT-Pro-B Natriuret Pep pg/mL Total Protein (6.3-8.2) g/dL Albumin (3.5-5.0) g/dL Influenza Type A (PCR) Not Detected (Not Detectd) Influenza Type B (PCR) Not Detected (Not Detectd) RSV (PCR) Not Detected (Not Detectd) SARS-CoV-2 (PCR) Not Detected (Not Detectd) Disposition Clinical Impression: CHF exacerbation, Acute kidney injury, Elevated troponin, Aortic stenosis, Leukocytosis Disposition: ADMITTED IP TO THIS HOSP Condition: Serious Is patient prescribed a controlled substance at d/c from ED?: No Referrals: John Duarte MD [Primary Care Provider] - 1-2 days
--- NOTE | 2023-10-12 04:26 | XR ---
EXAMINATION TYPE: XR chest 1V portable DATE OF EXAM: 10/12/2023 COMPARISON: Prior chest x-ray August 10, 2023 HISTORY: Dyspnea, CHF TECHNIQUE: Single frontal view of the chest is obtained. FINDINGS: Is persistent cardiomegaly with increasing central opacities. Overlying sternal wires red emonstrated. The osseous structures are demineralized. Surgical change to cardiac valve redemonstrate d. IMPRESSION: Findings suggest CHF exacerbation.
[2023-10-12 04:50] LABS: Anisocytosis Slight; Basophils % (A) 0 %; Eosinophils # (A) 0.1 k/uL (0-0.7); Eosinophils % (A) 0 %; HCT 28.4 % (39.0-53.0); HGB 8.3 gm/dL (13.0-17.5); Hypochromasia Marked; Lymphocytes # (A) 0.2 k/uL (1.0-4.8); Lymphocytes % (A) 1 %; MCH 23.9 pg (25.0-35.0); MCHC 29.1 g/dL (31.0-37.0); MCV 82.1 fL (80.0-100.0); Mean Platelet Volume 10.7; Microcytosis Slight; Monocytes # (A) 1.1 k/uL (0-1.0); Monocytes % (A) 7 %; Neutrophils # (A) 13.3 k/uL (1.3-7.7); Neutrophils % (A) 91 %; Platelet Count 118 k/uL (150-450); Poikilocytosis Slight; RBC 3.46 m/uL (4.30-5.90); RDW 18.3 % (11.5-15.5); WBC 14.7 k/uL (3.8-10.6)
[2023-10-12 05:04] LABS: INR 2.7 (<1.2); Prothrombin Time 26.9 sec (10.0-12.5)
[2023-10-12 05:12] LABS: ALT 14 U/L (4-49); AST 24 U/L (17-59); African American GFR (CKD) 31 (>60 ml/min/1.73 sqM); Albumin 3.4 g/dL (3.5-5.0); Alkaline Phosphatase 126 U/L (38-126); Anion Gap 9 mmol/L; Blood Urea Nitrogen 57 mg/dL (9-20); Calcium 8.4 mg/dL (8.4-10.2); Carbon Dioxide 23 mmol/L (22-30); Chloride 104 mmol/L (98-107); Glucose 88 mg/dL (74-99); Magnesium 2.2 mg/dL (1.6-2.3); Non-African American GFR(CKD) 27 (>60 ml/min/1.73 sqM); Potassium 4.3 mmol/L (3.5-5.1); Sodium 136 mmol/L (137-145); Total Bilirubin 0.9 mg/dL (0.2-1.3); Total Protein 6.2 g/dL (6.3-8.2)
[2023-10-12 05:20] LABS: NT-Pro-B-Type Natriuretic Pept 12800 pg/mL
[2023-10-12] MEDS: FUROSEMIDE 10 MG/ML 4 ML VIAL IV SCH (06:28)
[2023-10-12] MEDS: FOLIC ACID 1 MG TAB PO SCH (08:48)
[2023-10-12] MEDS: FERROUS SULFATE 325 MG TAB PO SCH (08:48)
[2023-10-12] MEDS: METOPROLOL TARTRATE 12.5 MG TAB PO SCH (08:48)
[2023-10-12 10:12] LABS: Appearance,Urine Clear (Clear); Bacteria,Urine Rare /hpf; Bilirubin,Urine Negative (Negative); Blood,Urine Negative (Negative); Color,Urine Colorless; Glucose,Urine (UA) Negative (Negative); Hyaline Casts,Urine 1 /lpf (0-2); Ketones,Urine Negative (Negative); Leukocyte Esterase,Urine Small (Negative); Mucus,Urine Rare /hpf; Nitrite,Urine Negative (Negative); Protein,Urine Negative (Negative); RBC,Urine 1 /hpf (0-5); Urobilinogen,Urine <2.0 mg/dL (<2.0); WBC,Urine 3 /hpf (0-5)
--- NOTE | 2023-10-12 11:49 | P.CRDCN ---
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 Patient follows in the office with Dr. Mauricio. We have been asked to see the patient in consultation for CHF. Patient examined at the bedside. Jae navarro presented to the hospital with a chief complaint of SOB. He states he started to feel short of breath yesterday. He states he has been compliant with all of his medications at home including his diuretics. He also reports following a low-sodium diet. The patient is tentatively scheduled for a valve in valve TAVR on October 17, 2023. The patient does report having chills at home. White count on admission is 14.7. Patient did have a low-grade fever of 99.9. DIAGNOSTICS: - EKG reveals atrial fibrillation with controlled ventricular rate. - Chest xray persistent cardiomegaly with increasing central opacities. findings suggest CHF exacerbation. - Laboratory data: WBC 14.7. Hemoglobin 8.3. Platelet count 118. INR 2.7. Sodium 136. Potassium 4.3. BUN 57. Creatinine 2.22. Troponin 0.067. proBNP 12,800. - Current home cardiac medications include warfarin 5 mg Sunday and Sunday and 2.5 mg on Sunday and Sunday, Lasix 40 mg daily, and metoprolol tartrate 12.5 mg twice a day. - Most recent echocardiogram obtained in 08/2023 revealed ejection fraction 40 to 45%, mild pulm hypertension, moderate MR, bioprosthetic aortic valve with concerns of severe stenosis - Cardiac catheterization history: 09/05/2023 revealing mild nonobstructive coronary artery disease, severe stenosis involving prosthetic valve with a peak gradient of 50 mmHg and mean gradient of 32 mm across the valve. REVIEW OF SYSTEMS: At the time of my exam: CONSTITUTIONAL: Denies fever or chills. HEENT: Denies blurred vision, vision changes, or eye pain. Denies hemoptysis CARDIOVASCULAR: Denies chest pain. Denies orthopnea. Denies PND. Denies palpitations RESPIRATORY: Reports shortness of breath. GASTROINTESTINAL: Denies abdominal pain. Denies nausea or vomiting. HEMATOLOGIC: Denies bleeding disorders. GENITOURINARY: Denies any blood in urine. SKIN: Denies pruitis. Denies rash. PHYSICAL EXAM: VITAL SIGNS: Reviewed. GENERAL: Well-developed in no acute distress. HEENT: Head is normocephalic. Pupils are equal, round. Sclerae anicteric. Mucous membranes of the mouth are moist. Neck supple. No JVD or thyromegaly LUNGS: Respirations even and unlabored. Lungs diminished with bibasilar crackles HEART: Irregular rate and rhythm. S1 and S2 heard. Systolic murmur noted ABDOMEN: Soft. Nondistended. Nontender. EXTREMITIES: Normal range of motion. No clubbing or cyanosis. Peripheral pulses intact. 2+ bilateral lower extremity edema NEUROLOGIC: Awake and alert. Oriented x 3. ASSESSMENT: Shortness of breath Acute on chronic heart failure with reduced EF, 40 to 45% Severe symptomatic aortic stenosis, scheduled for TAVR on 10/17/2023 Leukocytosis, rule out infectious process Persistent atrial fibrillation Mild nonobstructive CAD Prior history of aortic valve replacement in 2007 for infective endocarditis Chronic kidney disease Peripheral arterial disease Hypertension Hyperlipidemia PLAN: No need to repeat echocardiogram as this was performed in 08/2023 Continue IV Lasix. Increase dosage to 60 mg every 8 hours Daily weights, accurate intake and output, and monitoring of kidney function Continue additional home cardiac medications Continue Coumadin. Per CT surgery, patient's last dose of Coumadin should be Sunday night 10/13/2023 due to upcoming surgery Monitor WBC. Obtain UA. Await results of blood cultures Patient is tentatively scheduled for valve in valve TAVR on 10/17/2023 Further recommendations pending patient course Nurse practitioner note has been reviewed by physician. Signing provider agrees with the documented findings, assessment, and plan of care documented by BLUE[employer] DEVELOPER as a scribe. Past Medical History Past Medical History: Atrial Fibrillation, Hyperlipidemia, Hypertension Additional Past Medical History / Comment(s): aortic stenosis,anemia History of Any Multi-Drug Resistant Organisms: None Reported Past Surgical History: Cardiac Valve Replacement Additional Past Surgical History / Comment(s): AORTIC VALVE REPLACED 2007, CARDIOVERSION, JUWAN Past Anesthesia/Blood Transfusion Reactions: No Reported Reaction Additional Past Anesthesia/Blood Transfusion Reaction / Comment(s): unk if blood transfusion in past Smoking Status: Never smoker - Past Family History Mother Family Medical History: Dementia Additional Family Medical History / Comment(s): " from old age" Father Family Medical History: Cancer Additional Family Medical History / Comment(s): " from old age" unknown type of cancer. Medications and Allergies Home Medications Medication Instructions Recorded Confirmed Type Warfarin [Coumadin] 2.5 mg PO MOFR 08/10/23 10/12/23 History Warfarin [Coumadin] 5 mg PO SUTUWETHSA 08/10/23 10/12/23 History Furosemide [Lasix] 40 mg PO DAILY 90 Days #90 tab 08/14/23 10/12/23 Rx Metoprolol Tartrate [Lopressor] 12.5 mg PO BID 90 Days #180 tab 08/14/23 10/12/23 Rx Cyanocobalamin (Vitamin B-12) 5,000 mcg PO DAILY 10/10/23 10/12/23 History [Vitamin B-12] Ferrous Sulfate [Feosol] 325 mg PO DAILY 10/10/23 10/12/23 History Folate 800 mcg PO DAILY 10/10/23 10/12/23 History Allergies Allergy/AdvReac Type Severity Reaction Status Date / Time shellfish derived Allergy Anaphylaxis Verified 10/12/23 06:56 Milk Containing Products AdvReac "Diarrhea" Verified 10/12/23 06:56 (Dairy) [Dairy] Physical Exam Vitals: Vital Signs Temp Pulse Pulse Resp BP BP Pulse Ox 10/12/23 11:33 95 20 90/55 91 L 10/12/23 09:40 98.7 F 115 H 20 112/59 94 L 10/12/23 09:16 89 20 141/98 97 10/12/23 08:50 110 H 20 96 10/12/23 08:42 98.6 F 111 H 22 127/90 89 L 10/12/23 06:35 101 H 20 124/68 94 L 10/12/23 04:43 99.9 F H 10/12/23 04:00 95 94 L 10/12/23 03:08 98.6 F 81 23 109/65 87 L Intake and Output 10/11/23 10/12/23 10/12/23 22:59 06:59 14:59 Other: Voiding Method External Catheter Weight 77.564 kg 77.564 kg Results 10/12/23 04:20 10/12/23 04:20 Cardiac Enzymes 10/12/23 10/12/23 Range/Units 04:20 04:20 AST 24 (17-59) U/L Troponin I 0.067 H* (0.000-0.034) ng/mL Coagulation 10/12/23 Range/Units 04:20 PT 26.9 H (10.0-12.5) sec APTT 30.0 (22.0-30.0) sec CBC 10/12/23 Range/Units 04:20 WBC 14.7 H (3.8-10.6) k/uL RBC 3.46 L (4.30-5.90) m/uL Hgb 8.3 L (13.0-17.5) gm/dL Hct 28.4 L (39.0-53.0) % Plt Count 118 L (150-450) k/uL Comprehensive Metabolic Panel 10/12/23 Range/Units 04:20 Sodium 136 L (137-145) mmol/L Potassium 4.3 (3.5-5.1) mmol/L Chloride 104 (98-107) mmol/L Carbon Dioxide 23 (22-30) mmol/L BUN 57 H (9-20) mg/dL Creatinine 2.22 H (0.66-1.25) mg/dL Glucose 88 (74-99) mg/dL Calcium 8.4 (8.4-10.2) mg/dL AST 24 (17-59) U/L ALT 14 (4-49) U/L Alkaline Phosphatase 126 (38-126) U/L Total Protein 6.2 L (6.3-8.2) g/dL Albumin 3.4 L (3.5-5.0) g/dL Current Medications Generic Name Dose Route Start Last Admin Trade Name Freq PRN Reason Stop Dose Admin Ferrous Sulfate 325 mg 10/12/23 09:00 10/12/23 08:48 Ferrous Sulfate 325 Mg Tab PO 325 mg DAILY [facility] Administration Folic Acid 1 mg 10/12/23 09:00 10/12/23 08:48 Folic Acid 1 Mg Tab PO 1 mg DAILY ERICKA Administration Furosemide 60 mg 10/12/23 16:00 Furosemide 10 Mg/Ml 10 Ml Vial IV Q8HR [facility] Metoprolol Tartrate 12.5 mg 10/12/23 09:00 04/05/24 08:48 Metoprolol Tartrate 12.5 Mg Tab PO 12.5 mg BID ERICKA Administration Miscellaneous Information 1 each 10/12/23 07:36 Warfarin Per Pharmacy MISCELLANE DIRECTED PRN Per Protocol Protocol Warfarin Sodium 2.5 mg 10/12/23 18:00 Warfarin 2.5 Mg Tab PO 10/12/23 18:01 ONCE@1800 ONE Intake and Output 10/11/23 10/12/23 10/12/23 22:59 06:59 14:59 Other: Voiding Method External Catheter Weight 77.564 kg 77.564 kg Patient Weight 10/13/23 06:59 Weight 77.564 kg 10/12/23 04:20 10/12/23 04:20
[2023-10-12] MEDS: ALPRAZolam 0.25 MG TAB PO PRN (12:43)
[2023-10-12 13:34] VITALS: BMI 23.8
--- NOTE | 2023-10-12 13:53 | P.HPIM ---
History of Present Illness H&P Date: 10/12/23 History of Presenting Illness: Patient is a very pleasant 82-year-old male with a past medical history of atrial fibrillation on anticoagulation with Coumadin, HFrEF with previously known EF of 40-45%, bioprosthetic aortic valve replacement, chronic kidney disease stage IIIb, hypertension, and hyperlipidemia. He presented to the [facility] department secondary to concerns of increased lower extremity edema and inability to sleep as he needs to sleep sitting upright in a chair. Patient reports increasing lower extremity swelling and overall just feeling miserable as he cannot lay flat to sleep. He reports that he is scheduled to undergo a TAVR on 10/17/2023 and did everything he could to stay away from the hospital until this appointment but just could not take it anymore. Patient denies any headache, lightheadedness, dizziness, chest pain, palpitations, increased cough or sputum production, nausea, vomiting, changes in urination or bowel function, or experiencing any numbness/tingling/weakness in his extremities. He underwent evaluation in the emergency department. Vital signs upon arrival show blood pressure 109/65, heart rate 81, respiratory rate 23, temp 98.6 F, and SpO2 of 87% on room air requiring placement on 2 L supplemental oxygen to obtain SpO2 of 94%.. EKG was completed showing atrial fibrillation with a controlled ventricular rate of 70 bpm and T wave inversion in lateral leads I, aVL, V5 and V6. Chest x-ray completed showing persistent cardiomegaly with increasing central opacities consistent with CHF exacerbation. Labs completed and reviewed. CBC showing leukocytosis with WBC count of 14.7 and bicytopenia with hemoglobin of 8.3 and platelet count of 118. Renal function showing acute k idney injury on chronic stage III kidney disease with BUN of 57, and creatinine of 2.22 with a GFR of 27. Magnesium was 2.2. Liver profile unremarkable. Troponin elevated at 0.067 and proBNP of 12,800. Influenza A, influenza B, RSV, and COVID PCR were negative. Review of systems: Pertinent positives and negatives as discussed in HPI, a complete review of systems was performed and all other systems are negative. Physical exam: Vital signs reviewed and stable. General: Nontoxic, no distress and appears stated age. Derm: Skin warm and dry, normal coloration for ethnicity. Head: Atraumatic, normocephalic and symmetric. Eyes: EOMs intact, no lid lag, and anicteric sclera Mouth: no lip lesions, mucus membranes moist Cardiovascular: regular rate and rhythm with normal S1S2, systolic murmur, positive posterior tibial pulses bilaterally, and cap refill < 2 seconds. Lungs: Respirations even, regular, and unlabored on room air. Lungs CTA bilaterally, no rhonchi, no rales, no wheezing, and no accessory muscle usage. Abdominal: soft, nontender to palpation, no guarding, no appreciable organomegaly Ext: ROM intact. No gross muscle atrophy, 1-2 + bilateral lower extremity pitting edema, no contractures Neuro: Speech clear, face symmetrical and CN II-XII grossly intact with no noted focal neuro deficits Psych: Alert and oriented to person, place, time, and situation. Appropriate and pleasant affect. Assessment and Plan of Care: Acute systolic heart failure exacerbation Acute respiratory failure with hypoxia secondary to above Acute kidney injury on stage III CKD Severe aortic stenosis Chronic atrial fibrillation with a controlled ventricular response Bicytopenia with normocytic anemia and thrombocytopenia Hypertension -Cardiology consulted, appreciate recommendations -Telemetry monitoring -Daily weights -Close monitoring of I's and O's. -Cardiac diet -Lasix 60 mg IVP every 8 hours -Normocytic anemia with Thrombocytopenia: Likely iron deficiency anemia (Fe 28, Ferritin 24.1) and AOCD. Transfuse if Hg < 7. -Coumadin to continue for anticoagulation, pharmacy to dose for goal therapeutic range of 2-3. Currently therapeutic at 2.7. -Continued close monitoring of electrolytes while diuresing. Data and imaging reviewed: As stated above in HPI CODE STATUS: Full code DVT prophylaxis: Coumadin until 10/13/2023 and then will be held per cardiothoracic surgery recommendations pending scheduled TAVR Anticipated discharge date: Clinical course to determine Anticipated discharge place: Clinical course to determine Patient was seen independently by Nurse Pracitioner. This document was prepared using [employer] dictation software. Please allow for errors in night supervisor, while rare they do occur. Narciso Pandey NP rendered care for this patient independently, reviewed the findings and plan as documented in the note above. I did not physically speak with or examine the patient on this date. Past Medical History Past Medical History: Atrial Fibrillation, Hyperlipidemia, Hypertension Additional Past Medical History / Comment(s): aortic stenosis,anemia History of Any Multi-Drug Resistant Organisms: None Reported Past Surgical History: Cardiac Valve Replacement Additional Past Surgical History / Comment(s): AORTIC VALVE REPLACED 2007, CARDIOVERSION, JUWAN Past Anesthesia/Blood Transfusion Reactions: No Reported Reaction Additional Past Anesthesia/Blood Transfusion Reaction / Comment(s): unk if blood transfusion in past Past Psychological History: No Psychological Hx Reported Smoking Status: Never smoker Past Alcohol Use History: Daily Past Drug Use History: None Reported - Past Family History Mother Family Medical History: Dementia Additional Family Medical History / Comment(s): " from old age" Father Family Medical History: Cancer Additional Family Medical History / Comment(s): " from old age" unknown type of cancer. Medications and Allergies Home Medications Medication Instructions Recorded Confirmed Type Warfarin [Coumadin] 2.5 mg PO MOFR 08/10/23 10/12/23 History Warfarin [Coumadin] 5 mg PO SUTUWETHSA 08/10/23 10/12/23 History Furosemide [Lasix] 40 mg PO DAILY 90 Days #90 tab 08/14/23 10/12/23 Rx Metoprolol Tartrate [Lopressor] 12.5 mg PO BID 90 Days #180 tab 08/14/23 10/12/23 Rx Cyanocobalamin (Vitamin B-12) 5,000 mcg PO DAILY 10/10/23 10/12/23 History [Vitamin B-12] Ferrous Sulfate [Feosol] 325 mg PO DAILY 10/10/23 10/12/23 History Folate 800 mcg PO DAILY 10/10/23 10/12/23 History Allergies Allergy/AdvReac Type Severity Reaction Status Date / Time shellfish derived Allergy Anaphylaxis Verified 10/12/23 06:56 Milk Containing Products AdvReac "Diarrhea" Verified 10/12/23 06:56 (Dairy) [Dairy] Physical Exam Vitals: Vital Signs Temp Pulse Resp BP Pulse Ox 10/12/23 04:43 99.9 F H 10/12/23 03:08 98.6 F 81 23 109/65 87 L Intake and Output 10/11/23 10/12/23 10/12/23 22:59 06:59 14:59 Other: Weight 77.564 kg Results CBC & Chem 7: 10/12/23 04:20 10/12/23 04:20 Labs: Abnormal Lab Results - Last 24 Hours (Table) 10/12/23 10/12/23 10/12/23 Range/Units 04:20 04:20 04:20 WBC 14.7 H (3.8-10.6) k/uL RBC 3.46 L (4.30-5.90) m/uL Hgb 8.3 L (13.0-17.5) gm/dL Hct 28.4 L (39.0-53.0) % MCH 23.9 L (25.0-35.0) pg MCHC 29.1 L (31.0-37.0) g/dL RDW 18.3 H (11.5-15.5) % Plt Count 118 L (150-450) k/uL Neutrophils # 13.3 H (1.3-7.7) k/uL Lymphocytes # 0.2 L (1.0-4.8) k/uL Monocytes # 1.1 H (0-1.0) k/uL PT 26.9 H (10.0-12.5) sec INR 2.7 H (<1.2) Sodium 136 L (137-145) mmol/L BUN 57 H (9-20) mg/dL Creatinine 2.22 H (0.66-1.25) mg/dL Troponin I (0.000-0.034) ng/mL Total Protein 6.2 L (6.3-8.2) g/dL Albumin 3.4 L (3.5-5.0) g/dL 10/12/23 Range/Units 04:20 WBC (3.8-10.6) k/uL RBC (4.30-5.90) m/uL Hgb (13.0-17.5) gm/dL Hct (39.0-53.0) % MCH (25.0-35.0) pg MCHC (31.0-37.0) g/dL RDW (11.5-15.5) % Plt Count (150-450) k/uL Neutrophils # (1.3-7.7) k/uL Lymphocytes # (1.0-4.8) k/uL Monocytes # (0-1.0) k/uL PT (10.0-12.5) sec INR (<1.2) Sodium (137-145) mmol/L BUN (9-20) mg/dL Creatinine (0.66-1.25) mg/dL Troponin I 0.067 H* (0.000-0.034) ng/mL Total Protein (6.3-8.2) g/dL Albumin (3.5-5.0) g/dL
[2023-10-12] MEDS: FUROSEMIDE 10 MG/ML 10 ML VIAL IV SCH (15:17)
[2023-10-12] MEDS: WARFARIN 2.5 MG TAB PO ONE (17:04)
[2023-10-12] MEDS ORDERED: VANCOMYCIN IV PER PHARMACY 1 EACH MISC MISCELLANE PRN (22:37)
[2023-10-13] MEDS: VANCOMYCIN 1,500 MG in SODIUM CHLORIDE 0.9% 500 ML 500 ML IVPB ONE (00:29)
[2023-10-13 01:00] LABS: Glucose,Whole Blood 87 mg/dL (70-110)
[2023-10-13 01:28] LABS: Glucose,Whole Blood 78 mg/dL (70-110)
[2023-10-13 01:56] LABS: Glucose,Whole Blood 122 mg/dL (70-110)
--- NOTE | 2023-10-13 02:00 | CT ---
EXAMINATION TYPE: CODE STROKE: CT brain wo contrast DATE OF EXAM: 10/13/2023 HISTORY: Neuro deficit, acute, stroke suspected CT DLP: 1772.6 mGycm. Automated Exposure Control for Dose Reduction was Utilized. TECHNIQUE: CT scan of the head is performed without contrast. COMPARISON: None. FINDINGS: There is no acute intracranial hemorrhage or midline shift identified. There is moderate diffuse ventricular and sulcal prominence consistent with diffuse age-related cerebral atrophy. Suspi cious area of vague low attenuation in inferior right occipital lobe extending to the posterior super ior temporal lobe axial image 28 and coronal image 59 for reference. Bilateral aphakia is present. Th e visualized sinuses are clear. IMPRESSION: Their is suspected evolving acute/subacute infarct inferior right occipital lobe towards the posterior temporal lobe. No acute intracranial hemorrhage or midline shift.
--- NOTE | 2023-10-13 02:16 | CT ---
EXAMINATION TYPE: CODE STROKE: CTA head neck DATE OF EXAM: 10/13/2023 HISTORY: code stroke. Change in level of consciousness. Code stroke. COMPARISON: NONE CT DLP: 1772.6 mGycm. Automated Exposure Control for Dose Reduction was Utilized. TECHNIQUE: CTA scan of the head and neck is performed with IV Contrast, patient injected with 100 mL of Isovue 370, axial images are obtained, coronal and sagittal reformatted images are reviewed. 3D r econstructed images are created on an independent workstation and reviewed. FINDINGS: Carotid/Vascular Structures: Moderate peripheral calcified plaque in the left subclavian artery. No s ignificant stenosis in the 3 great vessels. Moderate to severe peripheral calcified plaque right shelton tid bulb into the proximal internal carotid artery without significant stenosis. Mild to moderate per ipheral calcified plaque left carotid bulb and proximal internal carotid artery without significant s tenosis. Patent bilateral external carotid arteries without significant stenosis. There are codominan t vertebral arteries patent to the basilar junction without significant stenosis. No large vessel occlusion or aneurysm in the posterior circulation. Patent anterior communicating art esperanza image 54 axial images. Motion artifact is seen. No aneurysm or large vessel occlusion in the ante rior circulation. Other: There is grade 1 retrolisthesis C6 on C7. Large bridging osteophytes at this level are seen. S coliotic curvature is present. Overlying sternal wires and mediastinal clips are identified. There is at least small to moderate siz e right pleural effusion and associated compressive atelectasis with posterior pleural calcifications . There is at least tiny left pleural effusion. Prominent central pulmonary arteries raise concern for underlying pulmonary artery hypertension bilat erally. There is 1.0 cm right thyroid nodule on image 25. IMPRESSION: Suboptimal due to motion artifact. No significant stenosis in common or internal carotid arteries bilaterally is identified. No large vessel occlusion or aneurysm at the level of the [place] of [place] is identified. Other findings noted as detailed above. NASCET criteria was used in interpretation of this exam?
[2023-10-13 02:18] LABS: Anisocytosis Slight; Basophils % (A) 0 %; Eosinophils % (A) 0 %; HCT 30.3 % (39.0-53.0); HGB 8.8 gm/dL (13.0-17.5); Hypochromasia Marked; Lymphocytes # (A) 0.3 k/uL (1.0-4.8); Lymphocytes % (A) 2 %; MCH 24.7 pg (25.0-35.0); MCV 85.3 fL (80.0-100.0); Mean Platelet Volume 9.6; Monocytes # (A) 0.8 k/uL (0-1.0); Monocytes % (A) 4 %; Neutrophils # (A) 17.2 k/uL (1.3-7.7); Neutrophils % (A) 94 %; Poikilocytosis Slight; RBC 3.55 m/uL (4.30-5.90); RDW 18.1 % (11.5-15.5); WBC 18.4 k/uL (3.8-10.6)
[2023-10-13] MEDS: ASPIRIN 300 MG SUPP RECTAL STA (02:26)
--- NOTE | 2023-10-13 02:34 | XR ---
EXAMINATION TYPE: XR chest 1V DATE OF EXAM: 10/13/2023 CLINICAL HISTORY: CHF and pneumonia study. TECHNIQUE: Single AP portable semiupright view of the chest is obtained. COMPARISON: Chest x-ray from one day earlier FINDINGS: Overlying sternal wires redemonstrated. Persistent cardiomegaly with Atherosclerotic and ectatic aortic knob. Small to moderate size right pleural effusion on current carly dy. Persistent central increased opacities. Osseous structures are intact. Surgical change to cardiac valve again seen. IMPRESSION: Findings consistent with CHF exacerbation remain present
[2023-10-13 02:36] LABS: ALT 25 U/L (4-49); AST 63 U/L (17-59); African American GFR (CKD) 22 (>60 ml/min/1.73 sqM); Albumin 3.1 g/dL (3.5-5.0); Alkaline Phosphatase 93 U/L (38-126); Anion Gap 10 mmol/L; Blood Urea Nitrogen 70 mg/dL (9-20); Calcium 8.1 mg/dL (8.4-10.2); Carbon Dioxide 23 mmol/L (22-30); Chloride 103 mmol/L (98-107); Glucose 107 mg/dL (74-99); Non-African American GFR(CKD) 19 (>60 ml/min/1.73 sqM); Potassium 4.7 mmol/L (3.5-5.1); Sodium 136 mmol/L (137-145); Total Bilirubin 1.2 mg/dL (0.2-1.3); Total Protein 5.8 g/dL (6.3-8.2)
[2023-10-13] MEDS: DEXTROSE 50% SYRINGE 50 ML IVP ONE (02:53)
[2023-10-13 03:52] LABS: INR 2.9 (<1.2); Partial Thromboplastin Time 33.4 sec (22.0-30.0); Prothrombin Time 28.1 sec (10.0-12.5)
[2023-10-13 03:53] LABS: Large Platelets Present; Platelet Count 55 k/uL (150-450); Target Cells Present
--- NOTE | 2023-10-13 04:14 | P.EN ---
I was notified by RN on 10/13/2023 around 01:05 to evaluate patient with changes in mental status . patient was admitted on 10/11 morning for CHF , known severe AV stenosis for TAVR evaluation. I was notified by pharmacy around 10/11 regarding positive blood culture with MRSA. patient has history of infective endocarditis, I started him on vanco dosing by pharma and ordered and Echocardiogram then around 1:05 on 10/12, I was notified regarding mental status change. upon my evaluation of the patient he was lethargic , breathing fast and shallow, but follows very simple commands, however, not moving his left UE and LE. pupils looked unequal with right pin point and left normal round about 3 mm. patient blood sugar was 78 , given 1/5 amp of dextrose , follow up blood sugar 119 I activated Code Stroke , and discussed with cylinder honer neurointerventionist patient presentation, per RN he was dosing off since the begining of the shift around 20:00 on 10/11 after he took a dose of xanax. neurointerventionist recommended proceeding with CTA head and neck due to benefits outweight risks as we discussed renal function. family was also updated about those recommendations and approved proceeding with giving contrast. CT of the brain showed inferior right occipital lobe acute/subacute evolving infarct extending to the posterior superior temporal , no acute bleeding CTA of the head and neck showed no large vessel occlusion. patient moved to the ICU A/p acute / subacute inferior right occipital and extending in to posterior superior temporal evolving infarct. rectal ASA daily statin when able to swallow swallow eval NPO PT /OT echocardiogram neuro consult no thrombolytic intervention , due to patient out of the window , last known normal around 20:00 10/11 , and being on coumadin with INR 2.7 hold coumadin neuro checks due to risk of hemorrhagic conversion obtain MRI of the brain for better evaluation of the brain stem fall precautions permissive hypertension , sepsis / bactremia h/o infective endocarditis consider JUWAN rule out vegetations cardiology following continue with vanco dosing by pharmacy ID consult chronic afib , hold coumadin for now severe aortic valve stenosis CHF with LVEF 35% CXR showing pulmonary edema , on IV lasix UBALDO on CKD , nephro consult s/p IV contrast , family updated and answered their questions 70 minutes were spent in delivering critical care time to this patient not counting procedures
[2023-10-13 04:50] LABS: ABG Base Excess -1.5 mmol/L; ABG HCO3 25 mmol/L (21-25); ABG Oxygen Saturation 94.4 % (94-97); ABG PCO2 55 mmHg (35-45); ABG PH 7.27 (7.35-7.45); ABG PO2 82 mmHg (83-108); ABG TCO2 27 mmol/L (19-24); Allen Test Performed? Yes
[2023-10-13] MEDS: NOREPINEPHRINE 4 MG in SODIUM CHLORIDE 0.9% 250 ML IV SCH (05:26)
[2023-10-13] MEDS: SODIUM CHLORIDE 0.9% 1,000 ML IV SCH (05:32)
[2023-10-13] MEDS: SODIUM CHLORIDE 0.9% 500 ML 500 ML IV ONE (05:33)
[2023-10-13 05:50] LABS: Anisocytosis Slight; HCT 29.6 % (39.0-53.0); HGB 8.5 gm/dL (13.0-17.5); Hypochromasia Marked; MCH 24.3 pg (25.0-35.0); MCHC 28.8 g/dL (31.0-37.0); MCV 84.4 fL (80.0-100.0); Mean Platelet Volume 9.7; Poikilocytosis Slight; RBC 3.51 m/uL (4.30-5.90); RDW 18.1 % (11.5-15.5); WBC 19.4 k/uL (3.8-10.6)
--- NOTE | 2023-10-13 05:58 | XR ---
EXAMINATION TYPE: XR chest 1V portable DATE OF EXAM: 10/13/2023 CLINICAL HISTORY: Difficulty breathing tube placement. TECHNIQUE: Single AP portable supine view of the chest is obtained. COMPARISON: Chest x-ray from earlier today FINDINGS: There is new endotracheal tube terminating at the aortic knob level approximately 3 to 4 c m above the anjana. There is new orogastric tube projecting below diaphragm. Overlying sternal wires redemonstrated. Persistent cardiomegaly with Atherosclerotic and ectatic aortic knob. Small size bilateral pleural effusions redemonstrated. Persi stent central increased opacities. Osseous structures are intact. Surgical change to cardiac valve ag ain seen. IMPRESSION: 1. New endotracheal and orogastric tubes satisfactory in position. 2. Persistent cardiomegaly with central vascular congestion and small bilateral pleural effusions red emonstrated consistent with CHF exacerbation/fluid overload state. No significant change from most re cent prior.
[2023-10-13 06:04] LABS: African American GFR (CKD) 21 (>60 ml/min/1.73 sqM); Anion Gap 12 mmol/L; Blood Urea Nitrogen 74 mg/dL (9-20); Calcium 8.1 mg/dL (8.4-10.2); Carbon Dioxide 22 mmol/L (22-30); Chloride 104 mmol/L (98-107); Glucose 65 mg/dL (74-99); Magnesium 2.3 mg/dL (1.6-2.3); Non-African American GFR(CKD) 18 (>60 ml/min/1.73 sqM); Potassium 4.9 mmol/L (3.5-5.1); Prothrombin Time 29.8 sec (10.0-12.5); Sodium 138 mmol/L (137-145)
[2023-10-13 06:07] LABS: ABG Base Excess -1.5 mmol/L; ABG HCO3 24 mmol/L (21-25); ABG Oxygen Saturation 99.6 % (94-97); ABG PCO2 43 mmHg (35-45); ABG PH 7.35 (7.35-7.45); ABG PO2 236 mmHg (83-108); ABG TCO2 25 mmol/L (19-24); Allen Test Performed? Yes
[2023-10-13 06:11] LABS: Platelet Count 69 k/uL (150-450)
[2023-10-13] MEDS: LACTATED RINGERS 1,000 ML IV ONE ×2 (06:20→09:24)
[2023-10-13 07:29] LABS: Glucose,Whole Blood 82 mg/dL (70-110)
--- NOTE | 2023-10-13 08:06 | ED ---
Medical Decision Making - Lab Data Result diagrams: 10/13/23 04:37 10/13/23 04:37 Lab Results 10/12/23 10/12/23 10/12/23 Range/Units 04:20 04:20 04:20 WBC 14.7 H (3.8-10.6) k/uL RBC 3.46 L (4.30-5.90) m/uL Hgb 8.3 L (13.0-17.5) gm/dL Hct 28.4 L (39.0-53.0) % MCV 82.1 (80.0-100.0) fL MCH 23.9 L (25.0-35.0) pg MCHC 29.1 L (31.0-37.0) g/dL RDW 18.3 H (11.5-15.5) % Plt Count 118 L (150-450) k/uL MPV 10.7 Neutrophils % 91 % Lymphocytes % 1 % Monocytes % 7 % Eosinophils % 0 % Basophils % 0 % Neutrophils # 13.3 H (1.3-7.7) k/uL Lymphocytes # 0.2 L (1.0-4.8) k/uL Monocytes # 1.1 H (0-1.0) k/uL Eosinophils # 0.1 (0-0.7) k/uL Basophils # 0.0 (0-0.2) k/uL Hypochromasia Marked Poikilocytosis Slight Anisocytosis Slight Microcytosis Slight PT 26.9 H (10.0-12.5) sec INR 2.7 H (<1.2) APTT 30.0 (22.0-30.0) sec Sodium 136 L (137-145) mmol/L Potassium 4.3 (3.5-5.1) mmol/L Chloride 104 (98-107) mmol/L Carbon Dioxide 23 (22-30) mmol/L Anion Gap 9 mmol/L BUN 57 H (9-20) mg/dL Creatinine 2.22 H (0.66-1.25) mg/dL Est GFR (CKD-EPI)AfAm 31 (>60 ml/min/1.73 sqM) Est GFR (CKD-EPI)NonAf 27 (>60 ml/min/1.73 sqM) Glucose 88 (74-99) mg/dL Calcium 8.4 (8.4-10.2) mg/dL Magnesium 2.2 (1.6-2.3) mg/dL Total Bilirubin 0.9 (0.2-1.3) mg/dL AST 24 (17-59) U/L ALT 14 (4-49) U/L Alkaline Phosphatase 126 (38-126) U/L Troponin I (0.000-0.034) ng/mL NT-Pro-B Natriuret Pep 72667 pg/mL Total Protein 6.2 L (6.3-8.2) g/dL Albumin 3.4 L (3.5-5.0) g/dL Influenza Type A (PCR) (Not Detectd) Influenza Type B (PCR) (Not Detectd) RSV (PCR) (Not Detectd) SARS-CoV-2 (PCR) (Not Detectd) 10/12/23 10/12/23 Range/Units 04:20 04:30 WBC (3.8-10.6) k/uL RBC (4.30-5.90) m/uL Hgb (13.0-17.5) gm/dL Hct (39.0-53.0) % MCV (80.0-100.0) fL MCH (25.0-35.0) pg MCHC (31.0-37.0) g/dL RDW (11.5-15.5) % Plt Count (150-450) k/uL MPV Neutrophils % % Lymphocytes % % Monocytes % % Eosinophils % % Basophils % % Neutrophils # (1.3-7.7) k/uL Lymphocytes # (1.0-4.8) k/uL Monocytes # (0-1.0) k/uL Eosinophils # (0-0.7) k/uL Basophils # (0-0.2) k/uL Hypochromasia Poikilocytosis Anisocytosis Microcytosis PT (10.0-12.5) sec INR (<1.2) APTT (22.0-30.0) sec Sodium (137-145) mmol/L Potassium (3.5-5.1) mmol/L Chloride (98-107) mmol/L Carbon Dioxide (22-30) mmol/L Anion Gap mmol/L BUN (9-20) mg/dL Creatinine (0.66-1.25) mg/dL Est GFR (CKD-EPI)AfAm (>60 ml/min/1.73 sqM) Est GFR (CKD-EPI)NonAf (>60 ml/min/1.73 sqM) Glucose (74-99) mg/dL Calcium (8.4-10.2) mg/dL Magnesium (1.6-2.3) mg/dL Total Bilirubin (0.2-1.3) mg/dL AST (17-59) U/L ALT (4-49) U/L Alkaline Phosphatase (38-126) U/L Troponin I 0.067 H* (0.000-0.034) ng/mL NT-Pro-B Natriuret Pep pg/mL Total Protein (6.3-8.2) g/dL Albumin (3.5-5.0) g/dL Influenza Type A (PCR) Not Detected (Not Detectd) Influenza Type B (PCR) Not Detected (Not Detectd) RSV (PCR) Not Detected (Not Detectd) SARS-CoV-2 (PCR) Not Detected (Not Detectd) Disposition Clinical Impression: CHF exacerbation, Acute kidney injury, Elevated troponin, Aortic stenosis, Leukocytosis Disposition: ADMITTED IP TO THIS HOSP Condition: Serious Procedures - Branch Protocol (Time Out) Patient Identification (2 identifiers required): Chart, Arm Band Patient/Legal Manager Apple has Confirmed: Identity, Procedure, Consent Site Marked: Not Applicable - Central Line Placement Right Femoral Consent Obtained: verbal consent Patient Placed on Monitor/Pulse Ox: Yes Prep: mask, gown, gloves Central Line Prep: Chlorhexidine scrub Local Anesthesia Used: Lidocaine 1% Ultrasound Used for Placement: No Central Line Lumen Inserted: triple Central Line Position: good blood return, all ports aspirated, flushed, capped, sutured in place with 2-0 silk Dressing Applied: Tegaderm Patient Tolerated Procedure: well, no complications Complications: none
[2023-10-13] MEDS: CHLORHEXIDINE GLUCONATE 15 ML CUP MUCOUS MEM SCH (08:38)
[2023-10-13] MEDS: ASPIRIN 300 MG SUPP RECTAL SCH (08:38)
[2023-10-13] MEDS: VASOPRESSIN 60 UNIT in SODIUM CHLORIDE 0.9% 150 ML IV SCH (09:24)
[2023-10-13] MEDS: fentaNYL (PF). 1,000 MCG in SODIUM CHLORIDE 0.9% 80 ML IV SCH (09:44)
[2023-10-13] MEDS: IPRATROPIUM-ALBUTEROL 3 ML NEB INHALATION SCH (11:22)
--- NOTE | 2023-10-13 11:40 | P.CNPUL ---
History of Present Illness Consult date: 10/13/23 Requesting physician: Giovanna Sauceda Reason for consult: other (Ventilator/critical care management) Chief complaint: Altered mental status History of present illness: This is an 82-year-old male patient who presented here to the emergency room early yesterday morning with complaints of difficulty sleeping, increasing lower extremity edema and requiring sleeping in an upright position. History of previous aortic valve replacement in 2007, cardiomyopathy with an ejection fraction of 40 to 45%, hypertension, hyperlipidemia, atrial fibrillation anticoagulated with warfarin, chronic kidney disease, daily alcohol use, non- smoker. He was scheduled for a TAVR procedure next week. He was admitted to the Cardiac Stepdown Unit. At approximately 1:30 this morning a rapid response team was called to his room as he was found to be unable to move the left upper or lower extremities pupils pupils were unequal and a code stroke was called. He had gone for a CT scan of the brain and then transferred into the intensive care unit at approximately 1:50 AM. Interventional neurology was consulted and deemed the patient not a candidate for intervention and should be medically managed. His condition continued to deteriorate and he was eventually intubated and placed on the mechanical ventilator at 5 AM. He is seen today in consultation in the intensive care unit. Current ventilator settings are assist-control mode of 16, tidal volume 500, FiO2 of 60% and a PEEP of 5. Blood gases revealed a PaO2 of 236, pCO2 43 and a pH of 7.35 and 100% FiO2. He did develop hypotension and had received a 500 mL fluid bolus and was initiated on norepinephrine currently at 23 mcg/min. Propofol at 30 mcg/kg/min and normal saline at 100 MLS per hour. He continued with hypotension and received a liter of fluid resuscitation with lactated Ringer's. He is currently in atrial fibrillation with a controlled ventricular rate. CT scan of the brain revealed an evolving acute/subacute infarct inferior right occipital lobe towards the posterior temporal lobe. No acute intracranial hemorrhage or midline shift. CT angiogram of the head and neck revealed no significant stenosis in common or internal carotid arteries bilaterally. No large vessel occlusion or aneurysm at the level of the [place] identified. Blood culture revealing presumptive MRSA. White count 19.4. Hemoglobin 8.5. Platelets 69,000. INR 3.0. Sodium 138. Potassium 4.9. Bicarb 22. BUN 74. Creatinine 3.11. Gl ucose 65. Troponin 0.671. He had been initiated on vancomycin. Chest x-ray reveals persistent cardiomegaly with central vascular congestion and small bilateral pleural effusions. Endotracheal and gastric tubes in good position. Review of Systems ROS unobtainable: due to endotracheal tube Past Medical History Past Medical History: Atrial Fibrillation, Hyperlipidemia, Hypertension Additional Past Medical History / Comment(s): aortic stenosis,anemia History of Any Multi-Drug Resistant Organisms: None Reported Past Surgical History: Cardiac Valve Replacement Additional Past Surgical History / Comment(s): AORTIC VALVE REPLACED 2007, CARDIOVERSION, JUWAN Past Anesthesia/Blood Transfusion Reactions: No Reported Reaction Additional Past Anesthesia/Blood Transfusion Reaction / Comment(s): unk if blood transfusion in past Past Psychological History: No Psychological Hx Reported Smoking Status: Never smoker Past Alcohol Use History: Daily Past Drug Use History: None Reported - Past Family History Mother Family Medical History: Dementia Additional Family Medical History / Comment(s): " from old age" Father Family Medical History: Cancer Additional Family Medical History / Comment(s): " from old age" unknown type of cancer. Medications and Allergies Home Medications Medication Instructions Recorded Confirmed Type Warfarin [Coumadin] 2.5 mg PO MOFR 08/10/23 10/12/23 History Warfarin [Coumadin] 5 mg PO SUTUWETHSA 08/10/23 10/12/23 History Furosemide [Lasix] 40 mg PO DAILY 90 Days #90 tab 08/14/23 10/12/23 Rx Metoprolol Tartrate [Lopressor] 12.5 mg PO BID 90 Days #180 tab 08/14/23 10/12/23 Rx Cyanocobalamin (Vitamin B-12) 5,000 mcg PO DAILY 10/10/23 10/12/23 History [Vitamin B-12] Ferrous Sulfate [Feosol] 325 mg PO DAILY 10/10/23 10/12/23 History Folate 800 mcg PO DAILY 10/10/23 10/12/23 History Allergies Allergy/AdvReac Type Severity Reaction Status Date / Time shellfish derived Allergy Anaphylaxis Verified 10/12/23 06:56 Milk Containing Products AdvReac "Diarrhea" Verified 10/12/23 06:56 (Dairy) [Dairy] Physical Exam Vitals: Vital Signs Temp Pulse Pulse Resp BP BP BP 10/13/23 10:00 89 16 10/13/23 09:45 92 24 04/06/24 09:30 98 27 H 10/13/23 09:15 83 20 10/13/23 09:00 95 22 10/13/23 08:45 111 H 29 H 10/13/23 08:30 101 H 21 10/13/23 08:15 101 H 23 10/13/23 08:00 99 F 106 H 16 10/13/23 07:45 93 26 H 10/13/23 07:30 102 H 17 10/13/23 07:15 93 22 10/13/23 07:00 93 20 10/13/23 06:45 89 18 10/13/23 06:30 110 H 16 10/13/23 06:15 93 16 10/13/23 06:09 10/13/23 06:00 92 16 10/13/23 05:45 93 20 10/13/23 05:30 95 20 66/43 10/13/23 05:15 94 20 81/51 10/13/23 05:07 10/13/23 05:00 109 H 20 88/61 10/13/23 04:57 10/13/23 04:45 99 34 H 88/49 10/13/23 04:30 98 33 H 88/49 10/13/23 04:15 89 33 H 92/44 10/13/23 04:09 10/13/23 04:00 100.9 F H 90 27 H 92/56 10/13/23 03:45 96 21 90/44 10/13/23 03:30 96 34 H 104/46 10/13/23 03:15 116 H 35 H 109/66 10/13/23 03:00 112 H 26 H 107/82 10/13/23 02:45 93 35 H 120/56 10/13/23 02:30 112 H 33 H 103/71 10/13/23 02:15 84 33 H 116/60 10/13/23 02:00 99.7 F H 99 33 H 114/74 10/13/23 01:22 102.3 F H 107 H 32 H 130/65 10/13/23 00:00 98.4 F 106 H 32 H 109/51 10/12/23 20:00 98.2 F 86 22 103/58 10/12/23 19:07 99.9 F H 95 32 H 86/54 04/05/24 17:00 97.2 F L 81 30 H 89/54 10/12/23 16:00 98.2 F 83 18 99/64 10/12/23 11:33 95 20 90/55 Pulse Ox FiO2 10/13/23 10:00 98 10/13/23 09:45 99 10/13/23 09:30 100 10/13/23 09:15 100 10/13/23 09:00 100 10/13/23 08:45 97 10/13/23 08:30 99 10/13/23 08:15 99 10/13/23 08:00 99 60 10/13/23 07:45 99 60 10/13/23 07:30 99 10/13/23 07:15 98 10/13/23 07:00 97 60 10/13/23 06:45 98 10/13/23 06:30 97 10/13/23 06:15 98 10/13/23 06:09 60 10/13/23 06:00 99 10/13/23 05:45 99 10/13/23 05:30 100 10/13/23 05:15 100 10/13/23 05:07 100 10/13/23 05:00 96 100 10/13/23 04:57 100 10/13/23 04:45 94 L 10/13/23 04:30 93 L 10/13/23 04:15 94 L 10/13/23 04:09 94 L 10/13/23 04:00 93 L 10/13/23 03:45 94 L 10/13/23 03:30 95 10/13/23 03:15 94 L 10/13/23 03:00 93 L 10/13/23 02:45 93 L 10/13/23 02:30 95 10/13/23 02:15 93 L 10/13/23 02:00 87 L 10/13/23 01:22 10/13/23 00:00 92 L 10/12/23 20:00 96 10/12/23 19:07 95 10/12/23 17:00 97 10/12/23 16:00 94 L 10/12/23 11:33 91 L Intake and Output 10/12/23 10/13/23 10/13/23 22:59 06:59 14:59 Intake Total 240 0356.235 6830.672 Output Total 200 245 105 Balance 40 7036.401 4202.672 Intake: IV 1300 0.9 300 Lactated Ringers 1,000 ml 1000 @ 999 mls/hr IV .Q1H1M [facility] Rx#:[id number] Intake, IV Titration 1609.014 316.672 Amount Lactated Ringers 1,000 ml 1000 @ 999 mls/hr IV .Q1H1M [facility] Rx#:[id number] Norepinephrine 4 mg In 9.014 190.61 Sodium Chloride 0.9% 250 ml @ 0.03 MCG/KG/MIN 8. 866 mls/hr IV .Q24H [facility] Rx#:[id number] Sodium Chloride 0.9% 1, 100 100 000 ml @ 100 mls/hr IV . Q10H [facility] Rx#:[id number] Sodium Chloride 0.9% 500 500 ml 500 ml @ 999 mls/hr IV .Q31M [facility] Rx#:[id number] propofoL 1,000 mg In 26.062 Empty Bag 1 bag @ 15 MCG/ KG/MIN 6.981 mls/hr IV . [id number] [facility] Rx#:[id number] Oral 240 Output: Urine 200 245 105 Other: Voiding Method External Catheter Indwelling Catheter Indwelling Catheter Weight 77 kg ABP, PAP, CO, CI - Last 8 Hours Arterial Blood Pressure 100/64 Arterial Blood Pressure 100/65 Arterial Blood Pressure 77/48 Arterial Blood Pressure 65/42 Arterial Blood Pressure 93/65 Arterial Blood Pressure 76/54 Arterial Blood Pressure 105/39 Arterial Blood Pressure 112/110 Arterial Blood Pressure 86/51 Arterial Blood Pressure 81/56 Arterial Blood Pressure 93/55 Arterial Blood Pressure 88/49 Arterial Blood Pressure 96/54 Arterial Blood Pressure 91/50 Arterial Blood Pressure 88/50 Arterial Blood Pressure 82/47 Arterial Blood Pressure 75/43 Arterial Blood Pressure 74/41 GENERAL EXAM: Intubated, sedated 82-year-old male patient on 60% FiO2 via the mechanical ventilator. HEAD: Normocephalic. EYES: 2 mm, nonreactive, equal size. NOSE: Clear with pink turbinates. THROAT: Oral endotracheal and gastric tube secured in place, no erythema or exudates. NECK: No masses, no JVD. CHEST: No chest wall deformity. LUNGS: Equal air entry with bilateral scattered rhonchi. CVS: S1 and S2 normal with an audible murmur, regular rhythm. ABDOMEN: No hepatosplenomegaly, normal bowel sounds, no guarding or rigidity. SPINE: No scoliosis or deformity SKIN: No rashes CENTRAL NERVOUS SYSTEM: Sedated, tone is normal in all 4 extremities. EXTREMITIES: Right femoral triple-lumen catheter in place. Right radial arterial line in place. Withdraws to pain all 4 extremities, there is 1-2+ peripheral edema. No clubbing, no cyanosis. Peripheral pulses are intact. Results - Laboratory Findings CBC and BMP: 10/13/23 04:37 10/13/23 04:37 ABG ABG pH 7.35 (7.35-7.45) 10/13/23 06:02 ABG pCO2 43 mmHg (35-45) 10/13/23 06:02 ABG pO2 236 mmHg (83-108) H 10/13/23 06:02 ABG O2 Saturation 99.6 % (94-97) H 10/13/23 06:02 PT/INR, D-dimer PT 29.8 sec (10.0-12.5) H 10/13/23 04:37 INR 3.0 (<1.2) H 10/13/23 04:37 Abnormal lab findings: Abnormal Labs 10/12/23 10/12/23 10/12/23 04:20 04:20 04:20 WBC 14.7 H RBC 3.46 L Hgb 8.3 L Hct 28.4 L MCH 23.9 L MCHC 29.1 L RDW 18.3 H Plt Count 118 L Neutrophils # 13.3 H Lymphocytes # 0.2 L Monocytes # 1.1 H PT 26.9 H INR 2.7 H APTT ABG pH ABG pCO2 ABG pO2 ABG Total CO2 ABG O2 Saturation Sodium 136 L BUN 57 H Creatinine 2.22 H Glucose POC Glucose (mg/dL) Calcium AST Troponin I Total Protein 6.2 L Albumin 3.4 L Ur Leukocyte Esterase Urine Bacteria Urine Mucus 10/12/23 10/12/23 10/13/23 04:20 09:30 01:55 WBC RBC Hgb Hct MCH MCHC RDW Plt Count Neutrophils # Lymphocytes # Monocytes # PT INR APTT ABG pH ABG pCO2 ABG pO2 ABG Total CO2 ABG O2 Saturation Sodium BUN Creatinine Glucose POC Glucose (mg/dL) 122 H Calcium AST Troponin I 0.067 H* Total Protein Albumin Ur Leukocyte Esterase Small H Urine Bacteria Rare H Urine Mucus Rare H 10/13/23 10/13/23 10/13/23 01:57 01:57 01:57 WBC 18.4 H RBC 3.55 L Hgb 8.8 L Hct 30.3 L MCH 24.7 L MCHC 29.0 L RDW 18.1 H Plt Count 55 L D Neutrophils # 17.2 H Lymphocytes # 0.3 L Monocytes # PT 28.1 H INR 2.9 H APTT 33.4 H ABG pH ABG pCO2 ABG pO2 ABG Total CO2 ABG O2 Saturation Sodium 136 L BUN 70 H Creatinine 2.89 H Glucose 107 H POC Glucose (mg/dL) Calcium 8.1 L AST 63 H Troponin I Total Protein 5.8 L Albumin 3.1 L Ur Leukocyte Esterase Urine Bacteria Urine Mucus 10/13/23 10/13/23 10/13/23 01:57 04:37 04:37 WBC 19.4 H RBC 3.51 L Hgb 8.5 L Hct 29.6 L MCH 24.3 L MCHC 28.8 L RDW 18.1 H Plt Count 69 L Neutrophils # Lymphocytes # Monocytes # PT 29.8 H INR 3.0 H APTT ABG pH ABG pCO2 ABG pO2 ABG Total CO2 ABG O2 Saturation Sodium BUN Creatinine Glucose POC Glucose (mg/dL) Calcium AST Troponin I 0.671 H* Total Protein Albumin Ur Leukocyte Esterase Urine Bacteria Urine Mucus 10/13/23 10/13/23 10/13/23 04:37 04:48 06:02 WBC RBC Hgb Hct MCH MCHC RDW Plt Count Neutrophils # Lymphocytes # Monocytes # PT INR APTT ABG pH 7.27 L ABG pCO2 55 H ABG pO2 82 L 236 H ABG Total CO2 27 H 25 H ABG O2 Saturation 99.6 H Sodium BUN 74 H Creatinine 3.11 H Glucose 65 L POC Glucose (mg/dL) Calcium 8.1 L AST Troponin I Total Protein Albumin Ur Leukocyte Esterase Urine Bacteria Urine Mucus - Diagnostic Findings Chest x-ray: image reviewed Assessment and Plan Assessment: Altered mental status with code stroke at 1:24 AM on 10/13/2023 and deterioration requiring intubation and mechanical ventilatory support at 5 AM same day Acute/subacute evolving CVA involving the inferior right occipital lobe towards the posterior temporal lobe. No acute intracranial hemorrhage or midline shift. 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, was schedule d for TAVR next week Severe mitral regurgitation Chronic atrial fibrillation anticoagulated with warfarin Chronic kidney disease Hypertension Hyperlipidemia Previous history of aortic valve stenosis with bioprosthetic replacement in 2007 History of daily alcohol use Plan: The patient was seen and evaluated Chest x-ray, CT scan of the brain, ABGs, labs and medications reviewed Continue norepinephrine Continue propofol for sedation Add an additional 1 L of fluid resuscitation Add vasopressin at 0.04 units/min Add fentanyl drip Decrease tidal volume to 400 Family requesting transfer to a tertiary care facility Medicine attempted at [facility] but patient is declined at this time We will continue to follow and make further recommendations based on his clinical status I have personally seen and examined the patient, performed the documentation and the assessment and plan as written. Number of minutes spent on the visit: 15.
--- NOTE | 2023-10-13 13:07 | P.NPCON ---
History of Present Illness - Reason for Consult Consult date: 10/13/23 - History of Present Illness Patient is a very pleasant 82-year-old male presented to the emergency department secondary to concerns of increased lower extremity edema and inability to sleep as he needs to sleep sitting upright in a chair. Patient reports increasing lower extremity swelling and overall just feeling miserable as he cannot lay flat to sleep. He reports that he is scheduled to undergo a TAVR on 10/17/2023 and did everything he could to stay away from the hospital until this appointment but just could not take it anymore. After admission he was noted to have mental status changes and underwent CT head showing new evolving ischemic stroke. spoke with family at bedside, they made him DNR and confirm that they would not want hemodialysis if his kidney function continued to worsen.patient was intubated and sedated and unable to provide his drainage was obtained from chart. Physical Exam Patient appears unresponsive, no acute distress HEENT: neck supple, trachea midline CV: RRR, positive S1-S2 Lungs: crackles heard bilaterally, diminished breath sounds Ext: no cyanosis, lower extremity edema present Review of Systems ROS unobtainable: due to mental status Past Medical History Past Medical History: Atrial Fibrillation, Hyperlipidemia, Hypertension Additional Past Medical History / Comment(s): aortic stenosis,anemia History of Any Multi-Drug Resistant Organisms: None Reported Past Surgical History: Cardiac Valve Replacement Additional Past Surgical History / Comment(s): AORTIC VALVE REPLACED 2007, CARDIOVERSION, JUWAN Past Anesthesia/Blood Transfusion Reactions: No Reported Reaction Additional Past Anesthesia/Blood Transfusion Reaction / Comment(s): unk if blood transfusion in past Past Psychological History: No Psychological Hx Reported Smoking Status: Never smoker Past Alcohol Use History: Daily Past Drug Use History: None Reported - Past Family History Mother Family Medical History: Dementia Additional Family Medical History / Comment(s): " from old age" Father Family Medical History: Cancer Additional Family Medical History / Comment(s): " from old age" unknown type of cancer. Medications and Allergies Home Medications Medication Instructions Recorded Confirmed Type Warfarin [Coumadin] 2.5 mg PO MOFR 08/10/23 10/12/23 History Warfarin [Coumadin] 5 mg PO SUTUWETHSA 08/10/23 10/12/23 History Furosemide [Lasix] 40 mg PO DAILY 90 Days #90 tab 08/14/23 10/12/23 Rx Metoprolol Tartrate [Lopressor] 12.5 mg PO BID 90 Days #180 tab 08/14/23 10/12/23 Rx Cyanocobalamin (Vitamin B-12) 5,000 mcg PO DAILY 10/10/23 10/12/23 History [Vitamin B-12] Ferrous Sulfate [Feosol] 325 mg PO DAILY 10/10/23 10/12/23 History Folate 800 mcg PO DAILY 10/10/23 10/12/23 History Allergies Allergy/AdvReac Type Severity Reaction Status Date / Time shellfish derived Allergy Anaphylaxis Verified 10/12/23 06:56 Milk Containing Products AdvReac "Diarrhea" Verified 10/12/23 06:56 (Dairy) [Dairy] Physical Exam Vitals: Vital Signs Temp Pulse Pulse Resp BP BP BP 10/13/23 10:00 89 16 10/13/23 09:45 92 24 10/13/23 09:30 98 27 H 10/13/23 09:15 83 20 10/13/23 09:00 95 22 10/13/23 08:45 111 H 29 H 10/13/23 08:30 101 H 21 10/13/23 08:15 101 H 23 10/13/23 08:00 99 F 106 H 16 10/13/23 07:45 93 26 H 10/13/23 07:30 102 H 17 10/13/23 07:15 93 22 10/13/23 07:00 93 20 10/13/23 06:45 89 18 10/13/23 06:30 110 H 16 10/13/23 06:15 93 16 10/13/23 06:09 10/13/23 06:00 92 16 10/13/23 05:45 93 20 10/13/23 05:30 95 20 66/43 10/13/23 05:15 94 20 81/51 10/13/23 05:07 10/13/23 05:00 109 H 20 88/61 10/13/23 04:57 10/13/23 04:45 99 34 H 88/49 10/13/23 04:30 98 33 H 88/49 10/13/23 04:15 89 33 H 92/44 10/13/23 04:09 10/13/23 04:00 100.9 F H 90 27 H 92/56 10/13/23 03:45 96 21 90/44 10/13/23 03:30 96 34 H 104/46 10/13/23 03:15 116 H 35 H 109/66 10/13/23 03:00 112 H 26 H 107/82 10/13/23 02:45 93 35 H 120/56 10/13/23 02:30 112 H 33 H 103/71 10/13/23 02:15 84 33 H 116/60 10/13/23 02:00 99.7 F H 99 33 H 114/74 10/13/23 01:22 102.3 F H 107 H 32 H 130/65 10/13/23 00:00 98.4 F 106 H 32 H 109/51 10/12/23 20:00 98.2 F 86 22 103/58 10/12/23 19:07 99.9 F H 95 32 H 86/54 10/12/23 17:00 97.2 F L 81 30 H 89/54 10/12/23 16:00 98.2 F 83 18 99/64 10/12/23 11:33 95 20 90/55 Pulse Ox FiO2 10/13/23 10:00 98 10/13/23 09:45 99 10/13/23 09:30 100 10/13/23 09:15 100 10/13/23 09:00 100 10/13/23 08:45 97 10/13/23 08:30 99 10/13/23 08:15 99 10/13/23 08:00 99 60 10/13/23 07:45 99 60 10/13/23 07:30 99 10/13/23 07:15 98 10/13/23 07:00 97 60 10/13/23 06:45 98 10/13/23 06:30 97 10/13/23 06:15 98 10/13/23 06:09 60 10/13/23 06:00 99 10/13/23 05:45 99 10/13/23 05:30 100 10/13/23 05:15 100 10/13/23 05:07 100 10/13/23 05:00 96 100 10/13/23 04:57 100 10/13/23 04:45 94 L 10/13/23 04:30 93 L 10/13/23 04:15 94 L 10/13/23 04:09 94 L 10/13/23 04:00 93 L 10/13/23 03:45 94 L 10/13/23 03:30 95 10/13/23 03:15 94 L 10/13/23 03:00 93 L 10/13/23 02:45 93 L 10/13/23 02:30 95 10/13/23 02:15 93 L 10/13/23 02:00 87 L 10/13/23 01:22 10/13/23 00:00 92 L 10/12/23 20:00 96 10/12/23 19:07 95 10/12/23 17:00 97 10/12/23 16:00 94 L 10/12/23 11:33 91 L Intake and Output 10/12/23 10/13/23 10/13/23 22:59 06:59 14:59 Intake Total 240 8946.567 0968.672 Output Total 200 245 105 Balance 40 6811.863 1081.672 Intake: IV 1300 0.9 300 Lactated Ringers 1,000 ml 1000 @ 999 mls/hr IV .Q1H1M [facility] Rx#:[id number] Intake, IV Titration 1609.014 316.672 Amount Lactated Ringers 1,000 ml 1000 @ 999 mls/hr IV .Q1H1M [facility] Rx#:[id number] Norepinephrine 4 mg In 9.014 190.61 Sodium Chloride 0.9% 250 ml @ 0.03 MCG/KG/MIN 8. 866 mls/hr IV .Q24H [facility] Rx#:[id number] Sodium Chloride 0.9% 1, 100 100 000 ml @ 100 mls/hr IV . Q10H [facility] Rx#:[id number] Sodium Chloride 0.9% 500 500 ml 500 ml @ 999 mls/hr IV .Q31M [facility] Rx#:[id number] propofoL 1,000 mg In 26.062 Empty Bag 1 bag @ 15 MCG/ KG/MIN 6.981 mls/hr IV . [id number] [facility] Rx#:[id number] Oral 240 Output: Urine 200 245 105 Other: Voiding Method External Catheter Indwelling Catheter Indwelling Catheter Weight 77 kg ABP, PAP, CO, CI - Last 8 Hours Arterial Blood Pressure 100/64 Arterial Blood Pressure 100/65 Arterial Blood Pressure 77/48 Arterial Blood Pressure 65/42 Arterial Blood Pressure 93/65 Arterial Blood Pressure 76/54 Arterial Blood Pressure 105/39 Arterial Blood Pressure 112/110 Arterial Blood Pressure 86/51 Arterial Blood Pressure 81/56 Arterial Blood Pressure 93/55 Arterial Blood Pressure 88/49 Arterial Blood Pressure 96/54 Arterial Blood Pressure 91/50 Arterial Blood Pressure 88/50 Arterial Blood Pressure 82/47 Arterial Blood Pressure 75/43 Arterial Blood Pressure 74/41 Results - Lab Results Most recent lab results ABG pH 7.35 (7.35-7.45) 10/13/23 06:02 ABG pCO2 43 mmHg (35-45) 10/13/23 06:02 ABG pO2 236 mmHg (83-108) H 10/13/23 06:02 ABG HCO3 24 mmol/L (21-25) 10/13/23 06:02 ABG O2 Saturation 99.6 % (94-97) H 10/13/23 06:02 Calcium 8.1 mg/dL (8.4-10.2) L 10/13/23 04:37 Magnesium 2.3 mg/dL (1.6-2.3) 10/13/23 04:37 10/13/23 04:37 10/13/23 04:37 Assessment and Plan Plan: Assessment 1. Oliguric UBALDO on CKD Stage III secondary to hemodynamic ATN. baseline creatinine 1.7-2.0, presented at 3.1-->2.9 today. 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 2. Acute exacerbation of CHF 3. Shock likely cardiogenic 4. Anemia CKD 5. Acute ischemic CVA 6. Severe prosthetic valve stenosis Plan Hold off and any further IV diuresis given hypotension Continue pressor support per ICU Strict I/O's, will check UA Expect renal function to worsen now with shock on pressors, discussed with family would not want to pursue dialysis Patient now DNR, prognosis remains poor. Transfuse for hemoglobin less than 7.0, recommend checking iron studies
--- NOTE | 2023-10-13 14:15 | PN ---
PROGRESS NOTE SUBJECTIVE: This is an 82-year-old gentleman with history of restenosis of prosthetic aortic valve , who presented to the hospital with acute exacerbation of congestive heart failure. We started him on diuretics after evaluation in the emergency room. Subsequently, he had neurological symptoms on the floor and the patient was transferred to ICU around 2 o'clock. Because of declining overall condition, he was intubated around 5 o'clock. He is currently on Levophed for hypotension. CT scan of the brain revealed evolving CVA and blood cultures are positive for possible MRSA. At the time of my evaluation, he was intubated on vent. He is on aspirin, vancomycin, Lopressor, and Levophed. The patient is on Coumadin and INR was therapeutic on his initial presentation. OBJECTIVE: GENERAL: The patient is intubated, sedated on the vent, responding to his name. VITAL SIGNS: Heart rate is 86 beats per minute, blood pressure is 90/50, and respiratory rate 16. CHEST: Reveals diminished air entry bilaterally. HEART: Reveals first and second heart sounds. Ejection systolic murmur in the aortic area. ABDOMEN: Soft. EXTREMITIES: Reveal bilateral 1+ edema, which is improved compared to yesterday. He is making urine. There has not been any significant change in his weight since admission. ASSESSMENT: 1. Acute exacerbation of chronic systolic heart failure. 2. Severe aortic stenosis involving a prosthetic aortic valve. 3. Possible MRSA septicemia. 4. CVA. PLAN: The patient is on intravenous vancomycin. The patient with prosthetic valve and positive bacteremia. Endocarditis is always a consideration, however, we will continue with the current measures including the respiratory support, blood cultures, antibiotics, and neurologist evaluation and decide on further course of action based on how things evolve. MMODL / IJN: [id number] / MTDD
--- NOTE | 2023-10-13 15:28 | P.PN ---
Progress Note - Text Progress Note Date: 10/13/23 I had an opportunity discuss advance care planning with this patient's family at bedside, patient's , daughter, son regarding his significant medical conditions of acute posterior fossa CVA, MRSA bacteremia, cardiogenic/septic shock, ventilator dependent respiratory failure. This conversation took a total of 40 minutes. In our discussion, we did an overview of patient's critical condition and the events leading up to his condition. We discussed the prognosis of multiorgan failure as well as patient's previously expressed wishes of not wanting to live long-term on a ventilator. Patient's family did express to me that they would like to seek an opportunity for transfer to another [facility], however, given patient's overall condition, and the fact that there was not a therapeutic option for him that was not offered at our institution, it was unlikely that he was going to be accepted for transfer. I did proceed to speak with physicians from both [facility], [facility], who declined the patient for transfer. I relayed this information back to the family. In our discussion, family was also interested in an informational visit with hospice, this consult was placed. Patient's CODE STATUS was changed to DNR/DNI. Patient's family confirmed that they would not want to proceed with dialysis should his kidney function worsen. Presently, the plan is to proceed with neurology evaluation, see how the patient progresses with 24 hours of antibiotics, prior to considering full comfort measures.
--- NOTE | 2023-10-13 19:57 | P.CNNES ---
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 As per EMS flowsheet, when EMS arrived, patient was sitting at the end of his bed at his home. The patient was alert to time and place and the patient stated that over the last week, he has not been able to sleep and is shaking all the time. Also he stated that his legs were swelling. Patient has very little pedal edema and during the interview process, the patient started to fall asleep. Patient mentioned that he was scheduled for a cardiac valve replacement this week at [facility]. Patient's vitals were blood pressure 145/95 pulse rate 94, respirations 16 saturation 97%. Vital signs on arrival blood pressure 109/65 pulse 81 temperature 99.9. Overnight patient has spiked temperature to 102.3. Chest x-ray revealed findings suggestive of CHF exacerbation. EKG shows atrial flutter/tachycardia. Patient while in the hospital developed some mental status change. Last known well was around 8:30 PM. Initially his mental status change was felt to be due to receiving sedative Xanax. However the level of consciousness got worse and stroke code was activated at 1:25 AM early this morning. CT head was performed. CT head revealed suspected evolving acute/subacute infarct inferior right occipital lobe towards the posterior temporal lobe. No acute intracranial hemorrhages seen. I personally reviewed CT head, agree with the findings. Appears to be a moderate to large sized area of ischemia in the right MUSICAL THERAPIST territory. There was report of unequal pupils in the beginning. CTA showed no large vessel occlusion. Nursing staff discussed with neurointerventionalist, who did not recommend tPA because patient was on Coumadin. No large vessel occlusion therefore no intervention needed. Patient was moved to the ICU. In- house doctor discussed case with me as well. Recommended holding of Coumadin for now. Patient has been started on aspirin. Recommended MRI of the brain. Patient also has high fevers and positive blood culture. Recommended to discuss with cardiology regarding possibility of JUWAN. Patient was seen in the ICU in room #2 53. Patient's was present. Patient's daughter Milagro was on the speaker phone on her cell phone. Patient was scheduled for TAVR on 10/17/2023. Patient's nurse was also present. Nurse reported that initial NIH stroke scale was 17. His breathing got worse at 5 AM and he was intubated. Now on mechanical ventilation. Patient has been more fid gety, tachypneic for which she has been on fentanyl 0.5 and propofol 20 mcg/kg/min. Patient also on Levophed 25 mcg for significantly low blood pressure. Patient has positive blood cultures, for which patient is on vancomycin. Echo has been completed, the results pending. Patient at present is intubated sedated. Nurse reported that with sedation holiday, patient was moving all 4 extremities equally. Review of Systems ROS unobtainable: due to endotracheal tube, due to mental status Past Medical History Past Medical History: Atrial Fibrillation, Hyperlipidemia, Hypertension Additional Past Medical History / Comment(s): aortic stenosis,anemia History of Any Multi-Drug Resistant Organisms: None Reported Past Surgical History: Cardiac Valve Replacement Additional Past Surgical History / Comment(s): AORTIC VALVE REPLACED 2007, CARDIOVERSION, JUWAN Past Anesthesia/Blood Transfusion Reactions: No Reported Reaction Additional Past Anesthesia/Blood Transfusion Reaction / Comment(s): unk if blood transfusion in past Past Psychological History: No Psychological Hx Reported Smoking Status: Never smoker Past Alcohol Use History: Daily Past Drug Use History: None Reported - Past Family History Mother Family Medical History: Dementia Additional Family Medical History / Comment(s): " from old age" Father Family Medical History: Cancer Additional Family Medical History / Comment(s): " from old age" unknown type of cancer. Medications and Allergies Home Medications Medication Instructions Recorded Confirmed Type Warfarin [Coumadin] 2.5 mg PO MOFR 08/10/23 10/12/23 History Warfarin [Coumadin] 5 mg PO SUTUWETHSA 08/10/23 10/12/23 History Furosemide [Lasix] 40 mg PO DAILY 90 Days #90 tab 08/14/23 10/12/23 Rx Metoprolol Tartrate [Lopressor] 12.5 mg PO BID 90 Days #180 tab 08/14/23 10/12/23 Rx Cyanocobalamin (Vitamin B-12) 5,000 mcg PO DAILY 10/10/23 10/12/23 History [Vitamin B-12] Ferrous Sulfate [Feosol] 325 mg PO DAILY 10/10/23 10/12/23 History Folate 800 mcg PO DAILY 10/10/23 10/12/23 History Allergies Allergy/AdvReac Type Severity Reaction Status Date / Time shellfish derived Allergy Anaphylaxis Verified 10/12/23 06:56 Milk Containing Products AdvReac "Diarrhea" Verified 10/12/23 06:56 (Dairy) [Dairy] Physical Examination - Vital Signs Vital Signs: Vital Signs Temp Pulse Pulse Resp BP BP Pulse Ox 10/13/23 17:00 100 21 98 10/13/23 16:45 106 H 20 98 10/13/23 16:30 100 20 99 10/13/23 16:15 100 22 98 10/13/23 16:00 99.4 F 99 20 98 10/13/23 15:45 93 19 98 10/13/23 15:30 100 24 99 10/13/23 15:26 98 10/13/23 15:15 98 21 99 10/13/23 15:10 97 10/13/23 15:07 10/13/23 15:00 96 20 99 10/13/23 14:45 98 24 98 10/13/23 14:30 94 19 98 10/13/23 14:15 93 24 98 10/13/23 14:00 92 23 98 10/13/23 13:45 92 20 98 10/13/23 13:30 92 29 H 98 10/13/23 13:15 94 34 H 98 10/13/23 13:00 93 16 98 10/13/23 12:45 89 17 98 10/13/23 12:30 90 16 97 10/13/23 12:15 99 22 100 10/13/23 12:00 99.9 F H 90 20 100 10/13/23 11:45 89 17 100 10/13/23 11:31 86 10/13/23 11:30 89 26 H 99 10/13/23 11:22 88 10/13/23 11:15 90 22 99 10/13/23 11:00 90 16 99 10/13/23 10:45 89 16 98 10/13/23 10:30 90 17 98 10/13/23 10:15 92 21 97 10/13/23 10:00 89 16 98 10/13/23 09:45 92 24 99 10/13/23 09:30 98 27 H 100 10/13/23 09:15 83 20 100 10/13/23 09:00 95 22 100 10/13/23 08:45 111 H 29 H 97 10/13/23 08:30 101 H 21 99 10/13/23 08:15 101 H 23 99 10/13/23 08:00 99 F 106 H 16 99 10/13/23 07:45 93 26 H 99 10/13/23 07:30 102 H 17 99 10/13/23 07:15 93 22 98 10/13/23 07:00 93 20 97 10/13/23 06:45 89 18 98 10/13/23 06:30 110 H 16 97 10/13/23 06:15 93 16 98 10/13/23 06:09 10/13/23 06:00 92 16 99 10/13/23 05:45 93 20 99 10/13/23 05:30 95 20 66/43 100 10/13/23 05:15 94 20 81/51 100 10/13/23 05:07 10/13/23 05:00 109 H 20 88/61 96 10/13/23 04:57 10/13/23 04:45 99 34 H 88/49 94 L 10/13/23 04:30 98 33 H 88/49 93 L 10/13/23 04:15 89 33 H 92/44 94 L 10/13/23 04:09 94 L 10/13/23 04:00 100.9 F H 90 27 H 92/56 93 L 10/13/23 03:45 96 21 90/44 94 L 10/13/23 03:30 96 34 H 104/46 95 10/13/23 03:15 116 H 35 H 109/66 94 L 10/13/23 03:00 112 H 26 H 107/82 93 L 10/13/23 02:45 93 35 H 120/56 93 L 10/13/23 02:30 112 H 33 H 103/71 95 10/13/23 02:15 84 33 H 116/60 93 L 10/13/23 02:00 99.7 F H 99 33 H 114/74 87 L 10/13/23 01:22 102.3 F H 107 H 32 H 130/65 10/13/23 00:00 98.4 F 106 H 32 H 109/51 92 L 10/12/23 20:00 98.2 F 86 22 103/58 96 10/12/23 19:07 99.9 F H 95 32 H 86/54 95 FiO2 10/13/23 17:00 10/13/23 16:45 10/13/23 16:30 10/13/23 16:15 10/13/23 16:00 60 10/13/23 15:45 10/13/23 15:30 10/13/23 15:26 10/13/23 15:15 10/13/23 15:10 10/13/23 15:07 60 10/13/23 15:00 10/13/23 14:45 10/13/23 14:30 10/13/23 14:15 10/13/23 14:00 10/13/23 13:45 10/13/23 13:30 10/13/23 13:15 10/13/23 13:00 10/13/23 12:45 10/13/23 12:30 10/13/23 12:15 10/13/23 12:00 60 10/13/23 11:45 10/13/23 11:31 10/13/23 11:30 10/13/23 11:22 10/13/23 11:15 60 10/13/23 11:00 10/13/23 10:45 10/13/23 10:30 10/13/23 10:15 10/13/23 10:00 10/13/23 09:45 10/13/23 09:30 10/13/23 09:15 10/13/23 09:00 10/13/23 08:45 10/13/23 08:30 10/13/23 08:15 10/13/23 08:00 60 10/13/23 07:45 60 10/13/23 07:30 10/13/23 07:15 10/13/23 07:00 60 10/13/23 06:45 10/13/23 06:30 10/13/23 06:15 10/13/23 06:09 60 10/13/23 06:00 10/13/23 05:45 10/13/23 05:30 10/13/23 05:15 10/13/23 05:07 100 10/13/23 05:00 100 10/13/23 04:57 100 10/13/23 04:45 10/13/23 04:30 10/13/23 04:15 10/13/23 04:09 10/13/23 04:00 10/13/23 03:45 10/13/23 03:30 10/13/23 03:15 10/13/23 03:00 10/13/23 02:45 10/13/23 02:30 10/13/23 02:15 10/13/23 02:00 10/13/23 01:22 10/13/23 00:00 10/12/23 20:00 10/12/23 19:07 Intake and Output 10/13/23 10/13/23 10/13/23 06:59 14:59 22:59 Intake Total 1715.079 3596.033 300 Output Total 245 295 125 Balance 6704.961 4258.033 175 Intake: IV 1700 300 0.9 700 300 Lactated Ringers 1,000 ml 1000 @ 999 mls/hr IV .Q1H1M ONE Rx#:[id number] Intake, IV Titration 1609.014 756.033 Amount Lactated Ringers 1,000 ml 1000 @ 999 mls/hr IV .Q1H1M ONE Rx#:[id number] Norepinephrine 4 mg In 9.014 584.982 Sodium Chloride 0.9% 250 ml @ 0.03 MCG/KG/MIN 8. 866 mls/hr IV .Q24H [facility] Rx#:[id number] Sodium Chloride 0.9% 1, 100 100 000 ml @ 100 mls/hr IV . Q10H [facility] Rx#:[id number] Sodium Chloride 0.9% 500 500 ml 500 ml @ 999 mls/hr IV .Q31M [facility] Rx#:[id number] propofoL 1,000 mg In 71.051 Empty Bag 1 bag @ 15 MCG/ KG/MIN 6.981 mls/hr IV . [id number] [facility] Rx#:[id number] Output: Urine 245 295 125 Other: Voiding Method Indwelling Catheter Indwelling Catheter Indwelling Catheter # Bowel Movements 1 Weight 77 kg ABP, PAP, CO, CI - Last 8 Hours Arterial Blood Pressure 90/52 Arterial Blood Pressure 90/51 Arterial Blood Pressure 93/51 Arterial Blood Pressure 89/50 Arterial Blood Pressure 88/54 Arterial Blood Pressure 90/50 Arterial Blood Pressure 88/53 Arterial Blood Pressure 92/54 Arterial Blood Pressure 92/51 Arterial Blood Pressure 89/52 Arterial Blood Pressure 91/52 Arterial Blood Pressure 89/52 Arterial Blood Pressure 84/52 Arterial Blood Pressure 87/53 Arterial Blood Pressure 88/53 Arterial Blood Pressure 87/53 Arterial Blood Pressure 87/52 Arterial Blood Pressure 82/50 Arterial Blood Pressure 90/53 Arterial Blood Pressure 86/53 Arterial Blood Pressure 84/52 Arterial Blood Pressure 87/54 Arterial Blood Pressure 89/55 Arterial Blood Pressure 92/55 Arterial Blood Pressure 90/52 Arterial Blood Pressure 91/54 Arterial Blood Pressure 90/57 Arterial Blood Pressure 101/67 Arterial Blood Pressure 100/64 Arterial Blood Pressure 100/65 Patient is an elderly male, who is intubated, sedated. Patient on propofol and fentanyl. Also on pressors Levophed. Patient's speech and language functions cannot be assessed. On cranial nerve examination, pupils are equal, small, about 2 mm, round and not clearly reacting to light. Gaze is midline. Oculocephalics are minimally present. Patient has corneal reflex. Patient does have cough and gag. He is breathing over the ventilator, set at 16 but he is breathing around 18-22. Face cannot be assessed. On muscle strength testing, patient is withdrawing to painful stimuli equally bilaterally in the lower limbs. He is slightly grimacing to painful stimuli in the upper limbs. Deep tendon reflexes very hypoactive and plantars are upgoing bilaterally. Sensory to touch cannot be assessed. Regarding noxious stimulus as mentioned above. Cerebellar function cannot be assessed. Tone and bulk of muscles normal. Gait cannot be assessed. On general examination, there is no carotid bruit or murmur, S1-S2 audible. Chest is clear on consultation. Abdomen is soft nontender. No organomegaly, bowel sounds present. Peripheral pulses are present. Mild peripheral edema. Results - Laboratory Findings CBC and BMP: 10/13/23 04:37 10/13/23 04:37 Abnormal Lab Findings: Abnormal Labs 10/12/23 10/12/23 10/12/23 04:20 04:20 04:20 WBC 14.7 H RBC 3.46 L Hgb 8.3 L Hct 28.4 L MCH 23.9 L MCHC 29.1 L RDW 18.3 H Plt Count 118 L Neutrophils # 13.3 H Lymphocytes # 0.2 L Monocytes # 1.1 H PT 26.9 H INR 2.7 H APTT ABG pH ABG pCO2 ABG pO2 ABG Total CO2 ABG O2 Saturation Sodium 136 L BUN 57 H Creatinine 2.22 H Glucose POC Glucose (mg/dL) Calcium AST Troponin I Total Protein 6.2 L Albumin 3.4 L Ur Leukocyte Esterase Urine Bacteria Urine Mucus 10/12/23 10/12/23 10/13/23 04:20 09:30 01:55 WBC RBC Hgb Hct MCH MCHC RDW Plt Count Neutrophils # Lymphocytes # Monocytes # PT INR APTT ABG pH ABG pCO2 ABG pO2 ABG Total CO2 ABG O2 Saturation Sodium BUN Creatinine Glucose POC Glucose (mg/dL) 122 H Calcium AST Troponin I 0.067 H* Total Protein Albumin Ur Leukocyte Esterase Small H Urine Bacteria Rare H Urine Mucus Rare H 10/13/23 10/13/23 10/13/23 01:57 01:57 01:57 WBC 18.4 H RBC 3.55 L Hgb 8.8 L Hct 30.3 L MCH 24.7 L MCHC 29.0 L RDW 18.1 H Plt Count 55 L D Neutrophils # 17.2 H Lymphocytes # 0.3 L Monocytes # PT 28.1 H INR 2.9 H APTT 33.4 H ABG pH ABG pCO2 ABG pO2 ABG Total CO2 ABG O2 Saturation Sodium 136 L BUN 70 H Creatinine 2.89 H Glucose 107 H POC Glucose (mg/dL) Calcium 8.1 L AST 63 H Troponin I Total Protein 5.8 L Albumin 3.1 L Ur Leukocyte Esterase Urine Bacteria Urine Mucus 10/13/23 10/13/23 10/13/23 01:57 04:37 04:37 WBC 19.4 H RBC 3.51 L Hgb 8.5 L Hct 29.6 L MCH 24.3 L MCHC 28.8 L RDW 18.1 H Plt Count 69 L Neutrophils # Lymphocytes # Monocytes # PT 29.8 H INR 3.0 H APTT ABG pH ABG pCO2 ABG pO2 ABG Total CO2 ABG O2 Saturation Sodium BUN Creatinine Glucose POC Glucose (mg/dL) Calcium AST Troponin I 0.671 H* Total Protein Albumin Ur Leukocyte Esterase Urine Bacteria Urine Mucus 10/13/23 10/13/23 10/13/23 04:37 04:48 06:02 WBC RBC Hgb Hct MCH MCHC RDW Plt Count Neutrophils # Lymphocytes # Monocytes # PT INR APTT ABG pH 7.27 L ABG pCO2 55 H ABG pO2 82 L 236 H ABG Total CO2 27 H 25 H ABG O2 Saturation 99.6 H Sodium BUN 74 H Creatinine 3.11 H Glucose 65 L POC Glucose (mg/dL) Calcium 8.1 L AST Troponin I Total Protein Albumin Ur Leukocyte Esterase Urine Bacteria Urine Mucus Assessment and Plan Assessment: * Acute ischemic CVA, moderate to large size involving right MUSICAL THERAPIST territory. Patient was already on Coumadin with therapeutic INR, therefore unclear as to the cause of the stroke. Rule out septic embolism because of positive blood cultures. Rule out endocarditis. * Shock, cardiogenic/septic * Bacteremia, rule out endocarditis * Acute exacerbation of CHF * Acute kidney injury on chronic renal disease * Severe aortic stenosis prosthetic valve stenosis. * Patient is no code. Plan: * Patient is critically sick not only from neurological standpoint, but also with multiple medical issues and multiple organ dysfunction. * CTA of head and neck revealed suboptimal due to motion artifact. No significant stenosis in common or internal carotid arteries bilaterally is identified. No large vessel occlusion or aneurysm at the level of [place]. Patient was not a candidate for tPA or any mechanical intervention. * 2D echo has been completed, results pending, to rule out bacterial endocarditis. * Repeat CT head at 8 AM to assess for the extent of the stroke, rule out any hemorrhagic conversion. * Hold Coumadin. * Continue aspirin 300 mg rectally. * Patient on vancomycin for bacteremia. ID on board. * Other medical management as per IM, critical care and other specialties. * Patient at present is no code. Patient will be seeing hospice nurse in the morning. * Neurology will follow. Discussed with patient's family and patient's nurse in detail.
[2023-10-13] MEDS: AMIODARONE 360 MG in DEXTROSE 5% IN WATER 200 ML IV ONE (22:32)
--- NOTE | 2023-10-13 22:56 | P.CONS ---
History of Present Illness - Reason for Consult Consult date: 10/13/23 Positive blood culture Requesting physician: Giovanna Sauceda - Chief Complaint Shortness of breath x 1 day - History of Present Illness Patient is a 82-year-old male with a past medical history negative for hypertension hyperlipidemia atrial fibrillation and did have a history of aortic valve placement in 2007 and also have a history of endocarditis and apparently was scheduled for TAVR procedure next week presenting to the hospital for evaluation of increasing shortness of breath increased lower extremity edema no clear history of any fever before coming to the hospital patient was admitted to the cardiac unit 1:30 in the morning rapid response was called in as apparently patient was able to move his left lower or lower extremity CT scan was done and the patient was transferred to the ICU subsequently worsening respiratory status requiring intubation patient on presentation to the hospital was running low- grade fever however he did spike a fever of 102.3 F around 1 AM and did have a low-grade fever of 99.9 at noon patient was tachycardic hypotensive requiring pressor support and currently on the vent FiO2 of 60% patient did have blood cultures drawn which came back positive with MRSA patient was started on vancomycin infectious disease was consulted for further management of antibiotic therapy most information has been obtained from review the chart and discussing with the family the patient is currently on the vent and cannot provide any history patient did have elevated white count of 18.4 with a left shift did have a elevated BUN and creatinine liver isms are normal urine has been negative influenza RSV COVID testing was negative patient did have a chest x-ray finding suggestive of CHF exacerbation Review of Systems Positive points has been mentioned in HPI complete review could not be obtained because patient intubated on the vent Past Medical History Past Medical History: Atrial Fibrillation, Hyperlipidemia, Hypertension Additional Past Medical History / Comment(s): aortic stenosis,anemia History of Any Multi-Drug Resistant Organisms: None Reported Past Surgical History: Cardiac Valve Replacement Additional Past Surgical History / Comment(s): AORTIC VALVE REPLACED 2007, CARDIOVERSION, JUWAN Past Anesthesia/Blood Transfusion Reactions: No Reported Reaction Additional Past Anesthesia/Blood Transfusion Reaction / Comm: unk if blood transfusion in past Past Psychological History: No Psychological Hx Reported Smoking Status: Never smoker Past Alcohol Use History: Daily Past Drug Use History: None Reported - Past Family History Mother Family Medical History: Dementia Additional Family Medical History / Comment(s): " from old age" Father Family Medical History: Cancer Additional Family Medical History / Comment(s): " from old age" unknown type of cancer. Medications and Allergies Home Medications Medication Instructions Recorded Confirmed Type Warfarin [Coumadin] 2.5 mg PO MOFR 08/10/23 10/12/23 History Warfarin [Coumadin] 5 mg PO SUTUWETHSA 08/10/23 10/12/23 History Furosemide [Lasix] 40 mg PO DAILY 90 Days #90 tab 08/14/23 10/12/23 Rx Metoprolol Tartrate [Lopressor] 12.5 mg PO BID 90 Days #180 tab 08/14/23 10/12/23 Rx Cyanocobalamin (Vitamin B-12) 5,000 mcg PO DAILY 10/10/23 10/12/23 History [Vitamin B-12] Ferrous Sulfate [Feosol] 325 mg PO DAILY 10/10/23 10/12/23 History Folate 800 mcg PO DAILY 10/10/23 10/12/23 History Allergies Allergy/AdvReac Type Severity Reaction Status Date / Time shellfish derived Allergy Anaphylaxis Verified 10/12/23 06:56 Milk Containing Products AdvReac "Diarrhea" Verified 10/12/23 06:56 (Dairy) [Dairy] Physical Exam Vitals: Vital Signs Temp Pulse Pulse Resp BP BP BP 10/13/23 12:15 99 22 10/13/23 12:00 99.9 F H 90 10/13/23 11:45 89 17 10/13/23 11:31 86 10/13/23 11:30 89 26 H 10/13/23 11:22 88 10/13/23 11:15 90 10/13/23 11:00 90 16 10/13/23 10:45 89 16 10/13/23 10:30 90 17 10/13/23 10:15 92 21 10/13/23 10:00 89 16 10/13/23 09:45 92 24 10/13/23 09:30 98 27 H 10/13/23 09:15 83 20 10/13/23 09:00 95 22 10/13/23 08:45 111 H 29 H 10/13/23 08:30 101 H 21 10/13/23 08:15 101 H 23 10/13/23 08:00 99 F 106 H 16 10/13/23 07:45 93 26 H 10/13/23 07:30 102 H 17 10/13/23 07:15 93 22 10/13/23 07:00 93 20 10/13/23 06:45 89 18 10/13/23 06:30 110 H 16 10/13/23 06:15 93 16 10/13/23 06:09 10/13/23 06:00 92 16 10/13/23 05:45 93 20 10/13/23 05:30 95 20 66/43 10/13/23 05:15 94 20 81/51 10/13/23 05:07 10/13/23 05:00 109 H 20 88/61 10/13/23 04:57 10/13/23 04:45 99 34 H 88/49 10/13/23 04:30 98 33 H 88/49 10/13/23 04:15 89 33 H 92/44 10/13/23 04:09 10/13/23 04:00 100.9 F H 90 27 H 92/56 10/13/23 03:45 96 21 90/44 10/13/23 03:30 96 34 H 104/46 10/13/23 03:15 116 H 35 H 109/66 10/13/23 03:00 112 H 26 H 107/82 10/13/23 02:45 93 35 H 120/56 10/13/23 02:30 112 H 33 H 103/71 10/13/23 02:15 84 33 H 116/60 10/13/23 02:00 99.7 F H 99 33 H 114/74 10/13/23 01:22 102.3 F H 107 H 32 H 130/65 10/13/23 00:00 98.4 F 106 H 32 H 109/51 10/12/23 20:00 98.2 F 86 22 103/58 10/12/23 19:07 99.9 F H 95 32 H 86/54 10/12/23 17:00 97.2 F L 81 30 H 89/54 10/12/23 16:00 98.2 F 83 18 99/64 Pulse Ox FiO2 10/13/23 12:15 100 10/13/23 12:00 100 60 10/13/23 11:45 100 10/13/23 11:31 10/13/23 11:30 99 10/13/23 11:22 10/13/23 11:15 99 60 10/13/23 11:00 99 10/13/23 10:45 98 10/13/23 10:30 98 10/13/23 10:15 97 10/13/23 10:00 98 10/13/23 09:45 99 10/13/23 09:30 100 10/13/23 09:15 100 10/13/23 09:00 100 10/13/23 08:45 97 10/13/23 08:30 99 10/13/23 08:15 99 10/13/23 08:00 99 60 10/13/23 07:45 99 60 10/13/23 07:30 99 10/13/23 07:15 98 10/13/23 07:00 97 60 10/13/23 06:45 98 10/13/23 06:30 97 10/13/23 06:15 98 10/13/23 06:09 60 10/13/23 06:00 99 10/13/23 05:45 99 10/13/23 05:30 100 10/13/23 05:15 100 10/13/23 05:07 100 10/13/23 05:00 96 100 10/13/23 04:57 100 10/13/23 04:45 94 L 10/13/23 04:30 93 L 10/13/23 04:15 94 L 10/13/23 04:09 94 L 10/13/23 04:00 93 L 10/13/23 03:45 94 L 10/13/23 03:30 95 10/13/23 03:15 94 L 10/13/23 03:00 93 L 10/13/23 02:45 93 L 10/13/23 02:30 95 10/13/23 02:15 93 L 10/13/23 02:00 87 L 10/13/23 01:22 10/13/23 00:00 92 L 10/12/23 20:00 96 10/12/23 19:07 95 10/12/23 17:00 97 10/12/23 16:00 94 L Intake and Output 10/12/23 10/13/23 10/13/23 22:59 06:59 14:59 Intake Total 240 0004.401 8420.672 Output Total 200 245 170 Balance 40 6902.588 1322.672 Intake: IV 1400 0.9 400 Lactated Ringers 1,000 ml 1000 @ 999 mls/hr IV .Q1H1M [facility] Rx#:[id number] Intake, IV Titration 1609.014 570.672 Amount Lactated Ringers 1,000 ml 1000 @ 999 mls/hr IV .Q1H1M [facility] Rx#:[id number] Norepinephrine 4 mg In 9.014 444.61 Sodium Chloride 0.9% 250 ml @ 0.03 MCG/KG/MIN 8. 866 mls/hr IV .Q24H [facility] Rx#:[id number] Sodium Chloride 0.9% 1, 100 100 000 ml @ 100 mls/hr IV . Q10H [facility] Rx#:[id number] Sodium Chloride 0.9% 500 500 ml 500 ml @ 999 mls/hr IV .Q31M [facility] Rx#:[id number] propofoL 1,000 mg In 26.062 Empty Bag 1 bag @ 15 MCG/ KG/MIN 6.981 mls/hr IV . Q52C33Q [facility] Rx#:[id number] Oral 240 Output: Urine 200 245 170 Other: Voiding Method External Catheter Indwelling Catheter Indwelling Catheter # Bowel Movements 1 Weight 77 kg ABP, PAP, CO, CI - Last 8 Hours Arterial Blood Pressure 86/53 Arterial Blood Pressure 84/52 Arterial Blood Pressure 87/54 Arterial Blood Pressure 89/55 Arterial Blood Pressure 92/55 Arterial Blood Pressure 90/52 Arterial Blood Pressure 91/54 Arterial Blood Pressure 90/57 Arterial Blood Pressure 101/67 Arterial Blood Pressure 100/64 Arterial Blood Pressure 100/65 Arterial Blood Pressure 77/48 Arterial Blood Pressure 65/42 Arterial Blood Pressure 93/65 Arterial Blood Pressure 76/54 Arterial Blood Pressure 105/39 Arterial Blood Pressure 112/110 Arterial Blood Pressure 86/51 Arterial Blood Pressure 81/56 Arterial Blood Pressure 93/55 Arterial Blood Pressure 88/49 Arterial Blood Pressure 96/54 Arterial Blood Pressure 91/50 Arterial Blood Pressure 88/50 Arterial Blood Pressure 82/47 Arterial Blood Pressure 75/43 Arterial Blood Pressure 74/41 GENERAL DESCRIPTION: Elderly male intubated on the vent HEENT: Shows Pallor , no scleral icterus. Oral mucous membrane is dry. NECK: Trachea central, no thyromegaly. LUNGS: Unlabored breathing. Decreased breath sounds at the base HEART: S1, S2, regular rate and rhythm. No loud murmur ABDOMEN: Soft, no tenderness , guarding or rigidity, no organomegaly EXTREMITIES: No edema of feet. SKIN: No rash, no masses palpable. NEUROLOGICAL: The patient is sedated on the vent Results CBC & Chem 7: 10/14/23 04:11 10/14/23 04:11 Labs: Abnormal Lab Results - Last 24 Hours (Table) 10/13/23 10/13/23 10/13/23 Range/Units 01:55 01:57 01:57 WBC 18.4 H (3.8-10.6) k/uL RBC 3.55 L (4.30-5.90) m/uL Hgb 8.8 L (13.0-17.5) gm/dL Hct 30.3 L (39.0-53.0) % MCH 24.7 L (25.0-35.0) pg MCHC 29.0 L (31.0-37.0) g/dL RDW 18.1 H (11.5-15.5) % Plt Count 55 L D (150-450) k/uL Neutrophils # 17.2 H (1.3-7.7) k/uL Lymphocytes # 0.3 L (1.0-4.8) k/uL PT 28.1 H (10.0-12.5) sec INR 2.9 H (<1.2) APTT 33.4 H (22.0-30.0) sec ABG pH (7.35-7.45) ABG pCO2 (35-45) mmHg ABG pO2 (83-108) mmHg ABG Total CO2 (19-24) mmol/L ABG O2 Saturation (94-97) % Sodium (137-145) mmol/L BUN (9-20) mg/dL Creatinine (0.66-1.25) mg/dL Glucose (74-99) mg/dL POC Glucose (mg/dL) 122 H (70-110) mg/dL Calcium (8.4-10.2) mg/dL AST (17-59) U/L Troponin I (0.000-0.034) ng/mL Total Protein (6.3-8.2) g/dL Albumin (3.5-5.0) g/dL 10/13/23 10/13/23 10/13/23 Range/Units 01:57 01:57 04:37 WBC (3.8-10.6) k/uL RBC (4.30-5.90) m/uL Hgb (13.0-17.5) gm/dL Hct (39.0-53.0) % MCH (25.0-35.0) pg MCHC (31.0-37.0) g/dL RDW (11.5-15.5) % Plt Count (150-450) k/uL Neutrophils # (1.3-7.7) k/uL Lymphocytes # (1.0-4.8) k/uL PT 29.8 H (10.0-12.5) sec INR 3.0 H (<1.2) APTT (22.0-30.0) sec ABG pH (7.35-7.45) ABG pCO2 (35-45) mmHg ABG pO2 (83-108) mmHg ABG Total CO2 (19-24) mmol/L ABG O2 Saturation (94-97) % Sodium 136 L (137-145) mmol/L BUN 70 H (9-20) mg/dL Creatinine 2.89 H (0.66-1.25) mg/dL Glucose 107 H (74-99) mg/dL POC Glucose (mg/dL) (70-110) mg/dL Calcium 8.1 L (8.4-10.2) mg/dL AST 63 H (17-59) U/L Troponin I 0.671 H* (0.000-0.034) ng/mL Total Protein 5.8 L (6.3-8.2) g/dL Albumin 3.1 L (3.5-5.0) g/dL 10/13/23 10/13/23 10/13/23 Range/Units 04:37 04:37 04:48 WBC 19.4 H (3.8-10.6) k/uL RBC 3.51 L (4.30-5.90) m/uL Hgb 8.5 L (13.0-17.5) gm/dL Hct 29.6 L (39.0-53.0) % MCH 24.3 L (25.0-35.0) pg MCHC 28.8 L (31.0-37.0) g/dL RDW 18.1 H (11.5-15.5) % Plt Count 69 L (150-450) k/uL Neutrophils # (1.3-7.7) k/uL Lymphocytes # (1.0-4.8) k/uL PT (10.0-12.5) sec INR (<1.2) APTT (22.0-30.0) sec ABG pH 7.27 L (7.35-7.45) ABG pCO2 55 H (35-45) mmHg ABG pO2 82 L (83-108) mmHg ABG Total CO2 27 H (19-24) mmol/L ABG O2 Saturation (94-97) % Sodium (137-145) mmol/L BUN 74 H (9-20) mg/dL Creatinine 3.11 H (0.66-1.25) mg/dL Glucose 65 L (74-99) mg/dL POC Glucose (mg/dL) (70-110) mg/dL Calcium 8.1 L (8.4-10.2) mg/dL AST (17-59) U/L Troponin I (0.000-0.034) ng/mL Total Protein (6.3-8.2) g/dL Albumin (3.5-5.0) g/dL 10/13/23 Range/Units 06:02 WBC (3.8-10.6) k/uL RBC (4.30-5.90) m/uL Hgb (13.0-17.5) gm/dL Hct (39.0-53.0) % MCH (25.0-35.0) pg MCHC (31.0-37.0) g/dL RDW (11.5-15.5) % Plt Count (150-450) k/uL Neutrophils # (1.3-7.7) k/uL Lymphocytes # (1.0-4.8) k/uL PT (10.0-12.5) sec INR (<1.2) APTT (22.0-30.0) sec ABG pH (7.35-7.45) ABG pCO2 (35-45) mmHg ABG pO2 236 H (83-108) mmHg ABG Total CO2 25 H (19-24) mmol/L ABG O2 Saturation 99.6 H (94-97) % Sodium (137-145) mmol/L BUN (9-20) mg/dL Creatinine (0.66-1.25) mg/dL Glucose (74-99) mg/dL POC Glucose (mg/dL) (70-110) mg/dL Calcium (8.4-10.2) mg/dL AST (17-59) U/L Troponin I (0.000-0.034) ng/mL Total Protein (6.3-8.2) g/dL Albumin (3.5-5.0) g/dL Microbiology - Last 24 Hours (Table) 10/12/23 05:31 Blood Culture Gram Stain - Preliminary Blood Blood Culture - Preliminary Presumptive MRSA Molecular ID Assessment and Plan (1) Sepsis Current Visit: Yes Status: Acute Code(s): A41.9 - SEPSIS, UNSPECIFIED ORGANISM SNOMED Code(s): 56844052 (2) Bacteremia due to methicillin resistant Staphylococcus aureus Current Visit: Yes Status: Acute Code(s): R78.81 - BACTEREMIA; B95.62 - METHICILLIN RESIS STAPH INFCT CAUSING DISEASES CLASSD [id number] SNOMED Code(s): 28753202166948030 Plan: 1patient with sepsis in this patient who did have fever tachycardia elevated white count and now with evidence of MRSA bacteremia high clinical suspicion for possible endovascular source patient did have abnormal and history of aortic stenosis and previous history of metabolic placement, patient currently do not have any evidence of cellulitis or joint swelling chest x-ray was mostly CHF not behaving as pneumonia 2-patient with renal insufficiency and high risk of nephrotoxicity from vancomycin 3-blood cultures will be repeated daily to document clearance of his bacteremia and check inflammatory markers 4-we will discontinue vancomycin and start the patient on daptomycin 6 mg/kg every 48 hour Multiple family members at bedside questions answered We will follow on clinical condition and cultures to further adjust medication if needed Thank you for this consultation we will follow the patient along with you Dictation was produced using [employer] dictation software. please excuse any grammatical, word or spelling errors. Time with Patient: Greater than 30
[2023-10-13] MEDS: DAPTOmycin 500 MG in SODIUM CHLORIDE 0.9% 50 ML IVPB SCH (23:13)
[2023-10-14] MEDS: AMIODARONE 450 MG in DEXTROSE 5% IN WATER 250 ML IV SCH (03:05)
[2023-10-14 03:21] LABS: Glucose,Whole Blood 137 mg/dL (70-110)
[2023-10-14 04:43] LABS: African American GFR (CKD) 22 (>60 ml/min/1.73 sqM); Anion Gap 11 mmol/L; Blood Urea Nitrogen 82 mg/dL (9-20); Calcium 7.5 mg/dL (8.4-10.2); Carbon Dioxide 18 mmol/L (22-30); Chloride 110 mmol/L (98-107); Glucose 136 mg/dL (74-99); Magnesium 2.3 mg/dL (1.6-2.3); Non-African American GFR(CKD) 19 (>60 ml/min/1.73 sqM); Potassium 5.2 mmol/L (3.5-5.1); Sodium 139 mmol/L (137-145)
[2023-10-14 05:02] LABS: C Reactive Protein 26.5 mg/dL (<1.0)
[2023-10-14 05:09] LABS: Anisocytosis Slight; HCT 30.9 % (39.0-53.0); HGB 8.7 gm/dL (13.0-17.5); Hypochromasia Marked; MCH 24.7 pg (25.0-35.0); MCHC 28.2 g/dL (31.0-37.0); MCV 87.9 fL (80.0-100.0); Mean Platelet Volume 12.4; Platelet Count 71 k/uL (150-450); Poikilocytosis Slight; RBC 3.51 m/uL (4.30-5.90); WBC 26.3 k/uL (3.8-10.6)
[2023-10-14] MEDS ORDERED: VANCOMYCIN 1,500 MG in SODIUM CHLORIDE 0.9% 500 ML 500 ML IVPB ONE (06:00)
[2023-10-14 06:21] LABS: ABG Base Excess -9.1 mmol/L; ABG HCO3 19 mmol/L (21-25); ABG Oxygen Saturation 94.1 % (94-97); ABG PCO2 50 mmHg (35-45); ABG PO2 77 mmHg (83-108); ABG TCO2 21 mmol/L (19-24); Allen Test Performed? Yes
[2023-10-14 06:24] LABS: ABG PH 7.19 (7.35-7.45)
[2023-10-14 06:46] LABS: Anisocytosis (M) Present; Band Neutrophils % 17 %; Lymphocytes # (M) 0.53 k/uL (1.0-4.8); Monocytes # (M) 0.79 k/uL (0-1.0); Neutrophils % (M) 78 %; Nucleated Red Blood Cells 0 /100 WBC (0-0); Polychromasia Present; Total Cells Counted 100
--- NOTE | 2023-10-14 07:53 | XR ---
EXAMINATION TYPE: XR chest 1V portable DATE OF EXAM: 10/14/2023 COMPARISON: 10/13/2023 HISTORY: SOB, Follow Up FINDINGS: Indwelling tubes and catheters are unchanged. No change in bibasilar opacities. Stable appearance of the cardio-mediastinal structures at this time. Pleural effusion unchanged. IMPRESSION: 1. Stable portable chest. Clinical correlation and follow up until resolution is recommended.
[2023-10-14 08:29] VITALS: TEMP 99
--- NOTE | 2023-10-14 09:09 | CA ---
Transthoracic Echo Report Name: Serjio Phillips Age: 82 Gender: M : 1940 Exam Date: 10/13/2023 09:49 Exam Location: [place] [facility] Ht (in): 71 Wt (lb): 171 Ordering Physician: Giovanna Sauceda MD Attending/Referring Phys: [id number], [employer] Jyoti Bynum RDCS Procedure CPT: Indications: MRSA bactremia Cardiac Hx: Bioprosthetic AOV Technical Quality: Technically difficult study Contrast 1: Definity Total Dose (mL): 2 Contrast 2: Total Dose (mL): MEASUREMENTS (Male / Female) Normal Values 2D ECHO LV Diastolic Diameter PLAX 6.3 cm 4.2 - 5.9 / 3.9 - 5.3 cm LV Systolic Diameter PLAX 4.6 cm IVS Diastolic Thickness 1.2 cm 0.6 - 1.0 / 0.6 - 0.9 cm LVPW Diastolic Thickness 1.3 cm 0.6 - 1.0 / 0.6 - 0.9 cm LV Relative Wall Thickness 0.4 RV Internal Dim ED PLAX 3.7 cm LVOT Diameter 2.7 cm LA Systolic Diameter LX 5.1 cm 3.0 - 4.0 / 2.7 - 3.8 cm LA Volume 167.2 cm??? 18 - 58 / 22 - 52 cm??? LA Volume Index 84.7 cm???/m??? 16 - 28 cm???/m??? M-MODE Aortic Root Diameter MM 3.7 cm MV E Point Septal Separation 1.1 cm DOPPLER AV Peak Velocity 392.6 cm/s AV Peak Gradient 61.7 mmHg AV Mean Velocity 285.5 cm/s AV Mean Gradient 36.5 mmHg AV Velocity Time Integral 73.6 cm LVOT Peak Velocity 133.7 cm/s LVOT Peak Gradient 7.2 mmHg LVOT Velocity Time Integral 25.2 cm LVOT Stroke Volume 146.9 cm??? LVOT Stroke Volume Index 74.5 ml/m??? LVOT Cardiac Index 7290.6 cm???/min???m??? AV Area Cont Eq vti 2.0 cm??? AV Area Cont Eq pk 2.0 cm??? MV Area PHT 5.7 cm??? MV Deceleration Time 143.7 ms TR Peak Velocity 351.7 cm/s TR Peak Gradient 49.5 mmHg Right Ventricular Systolic Press 53.1 mmHg FINDINGS Left Ventricle Left ventricular ejection fraction is estimated at 40-45 %. Mildly increased septal wall thickness. Mildly increased left ventricular diastolic diameter. Apical septum hypokinesis, apical inferior hypokinesis Right Ventricle Mild right ventricular dilatation. Moderate pulmonary hypertension. Right ventricular systolic pressure estimated at 53 mm hg. Right Atrium Right atrium not well visualized. Left Atrium Moderately increased left atrial diameter. Severely increased left atrial volume. Moderately increased left atrial area. Mitral Valve Mitral valve thickened. Mild mitral annular calcification. Mild mitral regurgitation. Aortic Valve Bioprosthetic stenosi with mean gradient 37 mmHg. Mild aortic regurgitation. Can not rule out vegetation Tricuspid Valve Structurally normal tricuspid valve. Mild tricuspid regurgitation. Pulmonic Valve Structurally normal pulmonic valve. No pulmonic regurgitation. Pericardium No pericardial effusion. Aorta Normal size aortic root and proximal ascending aorta. CONCLUSIONS Mild to moderate LV systolic dysfunction with an ejection fraction of 40-45% Apical hypokinesis and mild mitral regurgitation Left atrial enlargement Bioprosthetic valve in aortic position with a mean gradient of 37 mm and mild aortic regurgitation Cannot rule out vegetation on this study consider transesophageal echo if patient has persistently positive blood cultures Previewed by: Dr. Thomas Mauricio MD (Electronically Signed) Final Date: 14 October 2023 09:09
[2023-10-14] MEDS ORDERED: LORazepam 2 MG/ML INJ IV PRN (09:58)
[2023-10-14] MEDS ORDERED: GLYCOPYRROLATE 0.2 MG/ML 2 ML VIAL IVP PRN (09:58)
[2023-10-14] MEDS ORDERED: ATROPINE OPHTH SOLN 1% 5ML BTL SUBLINGUAL PRN (09:58)
[2023-10-14 10:25] VITALS: BP 86/54; PULSE 129; RESP 20
--- NOTE | 2023-10-14 10:35 | P.PN ---
Subjective Progress Note Date: 10/14/23 This is an 82-year-old male patient who presented here to the emergency room early yesterday morning with complaints of difficulty sleeping, increasing lower extremity edema and requiring sleeping in an upright position. History of previous aortic valve replacement in 2007, cardiomyopathy with an ejection fraction of 40 to 45%, hypertension, hyperlipidemia, atrial fibrillation anticoagulated with warfarin, chronic kidney disease, daily alcohol use, non- smoker. He was scheduled for a TAVR procedure next week. He was admitted to the Cardiac Stepdown Unit. At approximately 1:30 this morning a rapid response team was called to his room as he was found to be unable to move the left upper or lower extremities pupils pupils were unequal and a code stroke was called. He had gone for a CT scan of the brain and then transferred into the intensive care unit at approximately 1:50 AM. Interventional neurology was consulted and deemed the patient not a candidate for intervention and should be medically managed. His condition continued to deteriorate and he was eventually intubated and placed on the mechanical ventilator at 5 AM. He is seen today in consultation in the intensive care unit. Current ventilator settings are assist-control mode of 16, tidal volume 500, FiO2 of 60% and a PEEP of 5. Blood gases revealed a PaO2 of 236, pCO2 43 and a pH of 7.35 and 100% FiO2. He did develop hypotension and had received a 500 mL fluid bolus and was initiated on norepinephrine currently at 23 mcg/min. Propofol at 30 mcg/kg/min and normal saline at 100 MLS per hour. He continued with hypotension and received a liter of fluid resuscitation with lactated Ringer's. He is currently in atrial f ibrillation with a controlled ventricular rate. CT scan of the brain revealed an evolving acute/subacute infarct inferior right occipital lobe towards the posterior temporal lobe. No acute intracranial hemorrhage or midline shift. CT angiogram of the head and neck revealed no significant stenosis in common or internal carotid arteries bilaterally. No large vessel occlusion or aneurysm at the level of the resighini of Chan identified. Blood culture revealing presumptive MRSA. White count 19.4. Hemoglobin 8.5. Platelets 69,000. INR 3.0. Sodium 138. Potassium 4.9. Bicarb 22. BUN 74. Creatinine 3.11. Glucose 65. Troponin 0.671. He had been initiated on vancomycin. Chest x-ray reveals persistent cardiomegaly with central vascular congestion and small bilateral pleural effusions. Endotracheal and gastric tubes in good position. The patient is seen today October 14, 2023 in follow-up in the intensive care unit. He remains intubated on the mechanical ventilator currently on assist-control mode with a rate of 20, tidal volume 400, FiO2 60% and a PEEP of 5. Morning blood gases revealed a PaO2 of 77, pCO2 50 and a pH of 7.19. He remains on amiodarone at 0.5 mg/min. He did have an episode of atrial fibrillation with rapid ventricular response and remains in atrial fibrillation currently. He has norepinephrine at 39 mcg/kg/min. Vasopressin at 0.04 units/min. Propofol at 15 mcg/kg/min. Fentanyl at 0.5 mcg/kg/h. Normal saline at 100 MLS per hour. Sent antibiotics in the form of daptomycin. Blood cultures are positive for presumptive MRSA. White count 26.3. Hemoglobin 8.7. Platelets 71,000. Sodium 139. Potassium 5.2. Bicarb 18. BUN 82. Creatinine 2.97. Glucose 136. C- reactive protein 26.5. Chest x-ray reveals bibasilar opacities. Unchanged. Echocardiogram revealed mild to moderate LV dysfunction with ejection fraction of 40 to 45%. Apical hypokinesis. Bioprosthetic valve in aortic position with a mean gradient of 37 mmHg and mild aortic regurgitation. Could not rule out vegetation. Objective - Vital Signs Vital signs: Vital Signs Temp 99.0 F 10/14/23 08:00 Pulse 129 H 10/14/23 10:00 Resp 20 10/14/23 10:00 BP 86/54 10/14/23 10:00 Pulse Ox 93 L 10/14/23 10:00 FiO2 60 10/14/23 08:00 Intake & Output 10/13/23 10/14/23 10/14/23 18:59 06:59 18:59 Intake Total 3210.033 2872.260 103 Output Total 545 370 35 Balance 2665.033 2502.260 68 Weight 77 kg 89.3 kg Intake: IV 2200 1200 103 0.9 1200 1200 103 Lactated Ringers 1,000 ml 1000 @ 999 mls/hr IV .Q1H1M ONE Rx#:[id number] Intake, IV Titration 5757.208 5077.260 Amount Norepinephrine 4 mg In 709.361 6259.103 Sodium Chloride 0.9% 250 ml @ 0.03 MCG/KG/MIN 8. 866 mls/hr IV .Q24H [facility] Rx#:[id number] Sodium Chloride 0.9% 1, 100 000 ml @ 100 mls/hr IV . Q10H [facility] Rx#:[id number] Vasopressin 60 unit In 107.33 Sodium Chloride 0.9% 150 ml @ 0.03 UNITS/MIN 4.59 mls/hr IV .Q24H [facility] Rx#: [id number] fentaNYL (PF). 1,000 mcg 57.718 In Sodium Chloride 0.9% 80 ml @ 0.5 MCG/KG/HR 3. 878 mls/hr IV .Q24H [facility] Rx#:[id number] propofoL 1,000 mg In 71.051 152.109 Empty Bag 1 bag @ 15 MCG/ KG/MIN 6.981 mls/hr IV . [id number] [facility] Rx#:[id number] Output: Urine 545 370 35 Other: Voiding Method Indwelling Catheter Indwelling Catheter Indwelling Catheter # Bowel Movements 1 ABP, PAP, CO, CI - Last Documented Arterial Blood Pressure 70/47 - Exam GENERAL EXAM: Intubated, sedated 82-year-old male patient, currently on 60% FiO2 via the ventilator. HEAD: Normocephalic. EYES: 2 mm, nonreactive, equal size. NOSE: Clear with pink turbinates. THROAT: Oral endotracheal and gastric tube secured in place, no erythema or exudates. NECK: No masses, no JVD. CHEST: No chest wall deformity. LUNGS: Equal air entry with bilateral scattered rhonchi. CVS: S1 and S2 normal with an audible murmur, regular rhythm. ABDOMEN: No hepatosplenomegaly, normal bowel sounds, no guarding or rigidity. SPINE: No scoliosis or deformity SKIN: No rashes CENTRAL NERVOUS SYSTEM: Sedated, tone is normal in all 4 extremities. EXTREMITIES: Right femoral triple-lumen catheter in place. Right radial arterial line in place. Withdraws to pain all 4 extremities, there is 1-2+ peripheral edema. Peripheral pulses are intact. - Labs CBC & Chem 7: 10/14/23 04:11 10/14/23 04:11 Labs: Abnormal Lab Results - Last 24 Hours (Table) 10/13/23 10/14/23 10/14/23 Range/Units 04:37 03:19 04:11 WBC (3.8-10.6) k/uL RBC (4.30-5.90) m/uL Hgb (13.0-17.5) gm/dL Hct (39.0-53.0) % MCH (25.0-35.0) pg MCHC (31.0-37.0) g/dL RDW (11.5-15.5) % Plt Count (150-450) k/uL Neutrophils # (Manual) (1.3-7.7) k/uL Lymphocytes # (Manual) (1.0-4.8) k/uL ABG pH (7.35-7.45) ABG pCO2 (35-45) mmHg ABG pO2 (83-108) mmHg ABG HCO3 (21-25) mmol/L Potassium 5.2 H (3.5-5.1) mmol/L Chloride 110 H (98-107) mmol/L Carbon Dioxide 18 L (22-30) mmol/L BUN 82 H (9-20) mg/dL Creatinine 2.97 H (0.66-1.25) mg/dL Glucose 136 H (74-99) mg/dL POC Glucose (mg/dL) 137 H (70-110) mg/dL Calcium 7.5 L (8.4-10.2) mg/dL C-Reactive Protein 26.5 H (<1.0) mg/dL Procalcitonin 34.20 H (0.02-0.09) ng/mL 10/14/23 10/14/23 Range/Units 04:11 06:17 WBC 26.3 H (3.8-10.6) k/uL RBC 3.51 L (4.30-5.90) m/uL Hgb 8.7 L (13.0-17.5) gm/dL Hct 30.9 L (39.0-53.0) % MCH 24.7 L (25.0-35.0) pg MCHC 28.2 L (31.0-37.0) g/dL RDW 18.0 H (11.5-15.5) % Plt Count 71 L (150-450) k/uL Neutrophils # (Manual) 24.90 H (1.3-7.7) k/uL Lymphocytes # (Manual) 0.53 L (1.0-4.8) k/uL ABG pH 7.19 L* (7.35-7.45) ABG pCO2 50 H (35-45) mmHg ABG pO2 77 L (83-108) mmHg ABG HCO3 19 L (21-25) mmol/L Potassium (3.5-5.1) mmol/L Chloride (98-107) mmol/L Carbon Dioxide (22-30) mmol/L BUN (9-20) mg/dL Creatinine (0.66-1.25) mg/dL Glucose (74-99) mg/dL POC Glucose (mg/dL) (70-110) mg/dL Calcium (8.4-10.2) mg/dL C-Reactive Protein (<1.0) mg/dL Procalcitonin (0.02-0.09) ng/mL Microbiology - Last 24 Hours (Table) 10/12/23 05:31 Blood Culture Gram Stain - Preliminary Blood Blood Culture - Preliminary Presumptive MRSA Molecular ID Assessment and Plan Assessment: Altered mental status with code stroke at 1:24 AM on 10/13/2023 and deterioration requiring intubation and mechanical ventilatory support at 5 AM same day Acute/subacute evolving CVA involving the inferior right occipital lobe towards the posterior temporal lobe. No acute intracranial hemorrhage or midline shift Acute hypoxemic respiratory failure secondary to above and evidence of fluid volume overload Acute exacerbation of chronic systolic congestive heart failure. 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 Echocardiogram could not rule out vegetation Mitral regurgitation Chronic atrial fibrillation anticoagulated with warfarin. Developed rapid ventricular response and currently on amiodarone at 0.5 milligrams per minute Chronic kidney disease Hypertension Hyperlipidemia Previous history of aortic valve stenosis with bioprosthetic replacement in 2007 History of daily alcohol use Plan: The patient was seen and evaluated Chest x-ray, echocardiogram, ABGs, labs and medications reviewed Continue norepinephrine and vasopressin Continue propofol Continue amiodarone Continue fentanyl drip Family is at the bedside Considering hospice/comfort care Currently a DO NOT RESUSCITATE CODE STATUS Continue the current treatment plan until further decisions are made I have personally seen and examined the patient, performed the documentation and the assessment and plan as written. Number of minutes spent on the visit: 15.
[2023-10-14 10:39] LABS: Erythrocyte Sedimentation Rate 41 mm/Hr (0-20)
--- NOTE | 2023-10-14 11:06 | P.PN ---
Subjective Progress Note Date: 10/14/23 Patient follow-up for UBALDO. Remains intubated and sedated on pressors. Family planning on terminal extubation this morning. Patient appears unresponsive, intubated and sedated HEENT: neck supple, trachea midline CV: RRR, positive S1-S2 Lungs: crackles heard bilaterally, diminished breath sounds Ext: no cyanosis, lower extremity edema present Objective - Vital Signs Vital signs: Vital Signs Temp 99.0 F 10/14/23 08:00 Pulse 131 H 10/14/23 08:15 Resp 21 10/14/23 08:15 BP 87/54 10/14/23 08:15 Pulse Ox 94 L 10/14/23 08:15 FiO2 60 10/14/23 08:00 Intake & Output 10/13/23 10/14/23 10/14/23 18:59 06:59 18:59 Intake Total 3210.033 2872.260 103 Output Total 545 370 35 Balance 2665.033 2502.260 68 Weight 77 kg 89.3 kg Intake: IV 2200 1200 103 0.9 1200 1200 103 Lactated Ringers 1,000 ml 1000 @ 999 mls/hr IV .Q1H1M ONE Rx#:[id number] Intake, IV Titration 5280.645 2780.260 Amount Norepinephrine 4 mg In 486.818 1817.103 Sodium Chloride 0.9% 250 ml @ 0.03 MCG/KG/MIN 8. 866 mls/hr IV .Q24H [facility] Rx#:[id number] Sodium Chloride 0.9% 1, 100 000 ml @ 100 mls/hr IV . Q10H [facility] Rx#:[id number] Vasopressin 60 unit In 107.33 Sodium Chloride 0.9% 150 ml @ 0.03 UNITS/MIN 4.59 mls/hr IV .Q24H [facility] Rx#: [id number] fentaNYL (PF). 1,000 mcg 57.718 In Sodium Chloride 0.9% 80 ml @ 0.5 MCG/KG/HR 3. 878 mls/hr IV .Q24H [facility] Rx#:[id number] propofoL 1,000 mg In 71.051 152.109 Empty Bag 1 bag @ 15 MCG/ KG/MIN 6.981 mls/hr IV . [id number] [facility] Rx#:[id number] Output: Urine 545 370 35 Other: Voiding Method Indwelling Catheter Indwelling Catheter # Bowel Movements 1 ABP, PAP, CO, CI - Last Documented Arterial Blood Pressure 72/46 - Labs CBC & Chem 7: 10/14/23 04:11 10/14/23 04:11 Labs: Abnormal Lab Results - Last 24 Hours (Table) 10/13/23 10/14/23 10/14/23 Range/Units 04:37 03:19 04:11 WBC (3.8-10.6) k/uL RBC (4.30-5.90) m/uL Hgb (13.0-17.5) gm/dL Hct (39.0-53.0) % MCH (25.0-35.0) pg MCHC (31.0-37.0) g/dL RDW (11.5-15.5) % Plt Count (150-450) k/uL Neutrophils # (Manual) (1.3-7.7) k/uL Lymphocytes # (Manual) (1.0-4.8) k/uL ABG pH (7.35-7.45) ABG pCO2 (35-45) mmHg ABG pO2 (83-108) mmHg ABG HCO3 (21-25) mmol/L Potassium 5.2 H (3.5-5.1) mmol/L Chloride 110 H (98-107) mmol/L Carbon Dioxide 18 L (22-30) mmol/L BUN 82 H (9-20) mg/dL Creatinine 2.97 H (0.66-1.25) mg/dL Glucose 136 H (74-99) mg/dL POC Glucose (mg/dL) 137 H (70-110) mg/dL Calcium 7.5 L (8.4-10.2) mg/dL C-Reactive Protein 26.5 H (<1.0) mg/dL Procalcitonin 34.20 H (0.02-0.09) ng/mL 10/14/23 10/14/23 Range/Units 04:11 06:17 WBC 26.3 H (3.8-10.6) k/uL RBC 3.51 L (4.30-5.90) m/uL Hgb 8.7 L (13.0-17.5) gm/dL Hct 30.9 L (39.0-53.0) % MCH 24.7 L (25.0-35.0) pg MCHC 28.2 L (31.0-37.0) g/dL RDW 18.0 H (11.5-15.5) % Plt Count 71 L (150-450) k/uL Neutrophils # (Manual) 24.90 H (1.3-7.7) k/uL Lymphocytes # (Manual) 0.53 L (1.0-4.8) k/uL ABG pH 7.19 L* (7.35-7.45) ABG pCO2 50 H (35-45) mmHg ABG pO2 77 L (83-108) mmHg ABG HCO3 19 L (21-25) mmol/L Potassium (3.5-5.1) mmol/L Chloride (98-107) mmol/L Carbon Dioxide (22-30) mmol/L BUN (9-20) mg/dL Creatinine (0.66-1.25) mg/dL Glucose (74-99) mg/dL POC Glucose (mg/dL) (70-110) mg/dL Calcium (8.4-10.2) mg/dL C-Reactive Protein (<1.0) mg/dL Procalcitonin (0.02-0.09) ng/mL Microbiology - Last 24 Hours (Table) 10/12/23 05:31 Blood Culture Gram Stain - Preliminary Blood Blood Culture - Preliminary Presumptive MRSA Molecular ID Assessment and Plan Plan: Assessment 1. Non-oliguric UBALDO on CKD Stage III secondary to hemodynamic ATN. baseline creatinine 1.7-2.0, presented at 2.2-->3.1-->2.9 today. 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 UA negative for active sed iment. 2. Acute exacerbation of CHF 3. Shock likely septic, possible endocarditis. 4. Anemia CKD 5. Acute ischemic CVA 6. Severe prosthetic valve stenosis 7. Hyperkalemia due to UBALDO Plan Hold off and any further IV diuresis given hypotension Continue pressor support per ICU, BP remains low Strict I/O's, urine output remains good Monitor daily renal function Patient now DNR, family pursuing terminal extubation this morning Will sign off.
--- NOTE | 2023-10-14 12:01 | P.DS ---
Providers Date of admission: 10/12/23 05:32 Expected date of discharge: 10/14/23 Attending physician: Giovanna Sauceda MD Consults: 10/12/23 05:32 Consult Physician Routine Consulting Provider: [facility] Consult Reason/Comments: chf Do you want consulting provider notified?: Yes, Notify in am 10/12/23 22:37 Consult Physician Routine Consulting Provider: Monica Olivia Consult Reason/Comments: positive BLood culture Do you want consulting provider notified?: Yes 10/13/23 01:50 Consult Physician Stat Consulting Provider: Venkata Rao Consult Reason/Comments: ICU Management Do you want consulting provider notified?: Already Contacted 10/13/23 02:06 Consult Physician Routine Consulting Provider: Mercy Barr Consult Reason/Comments: stroke Do you want consulting provider notified?: Already Contacted 10/13/23 05:57 Consult Physician Routine Consulting Provider: Philomena Potts Consult Reason/Comments: UBALDO on CKD, status post contrast Do you want consulting provider notified?: Yes Primary care physician: John Hsu [facility] Course: History of Presenting Illness: Patient is a very pleasant 82-year-old male with a past medical history of atrial fibrillation on anticoagulation with Coumadin, HFrEF with previously known EF of 40-45%, bioprosthetic aortic valve replacement, chronic kidney disease stage IIIb, hypertension, and hyperlipidemia. He presented to the emergency department secondary to concerns of increased lower extremity edema and inability to sleep as he needs to sleep sitting upright in a chair. He underwent evaluation in the emergency department. Vital signs upon arrival show blood pressure 109/65, heart rate 81, respiratory rate 23, temp 98.6 F, and SpO2 of 87% on room air requiring placement on 2 L supplemental oxygen to obtain SpO2 of 94%.. EKG was completed showing atrial fibrillation with a controlled ventricular rate of 70 bpm and T wave inversion in lateral leads I, aVL, V5 and V6. Chest x-ray completed showing persistent cardiomegaly with increasing central opacities consistent with CHF exacerbation. Labs completed and reviewed. CBC showing leukocytosis with WBC count of 14.7 and bicytopenia with hemoglobin of 8.3 and platelet count of 118. Renal function showing acute kidney injury on chronic stage III kidney disease with BUN of 57, and creatinine of 2.22 with a GFR of 27. Magnesium was 2.2. Liver profile unremarkable. Troponin elevated at 0.067 and proBNP of 12,800. Influenza A, influenza B, RSV, and COVID PCR were negative. Pt was noted to have an event with AMS and motor weakness, code stroke was called and patient transferred to the ICU, intubated, and placed on pressors for hypotension. CTH demonstrated findings of large occipital and temporal stroke on the right. BCx grew MRSA. Pt started on vancomycin. Pt declined rapidly and on 10/13 was switched to comfort measures and with family at bedside. Septic Shock MRSA Bacteremia Septic embolic CVA Acute systolic heart failure exacerbation Acute respiratory failure with hypoxia secondary to above Acute kidney injury on stage III CKD Severe aortic stenosis Chronic atrial fibrillation with a controlled ventricular response Bicytopenia with normocytic anemia and thrombocytopenia Hypertension Plan - Discharge Summary Discharge Rx Participant: Yes New Discharge Prescriptions: No Action Warfarin [Coumadin] 2.5 mg PO MOFR Warfarin [Coumadin] 5 mg PO SUTUWETHSA Furosemide [Lasix] 40 mg PO DAILY 90 Days #90 tab Folate 800 mcg PO DAILY Ferrous Sulfate [Feosol] 325 mg PO DAILY Metoprolol Tartrate [Lopressor] 12.5 mg PO BID 90 Days #180 tab Cyanocobalamin (Vitamin B-12) [Vitamin B-12] 5,000 mcg PO DAILY Discharge Medication List Warfarin [Coumadin] 2.5 mg PO MOFR 08/10/23 [History] Warfarin [Coumadin] 5 mg PO SUTUWETHSA 08/10/23 [History] Furosemide [Lasix] 40 mg PO DAILY 90 Days #90 tab 08/14/23 [Rx] Metoprolol Tartrate [Lopressor] 12.5 mg PO BID 90 Days #180 tab 08/14/23 [Rx] Cyanocobalamin (Vitamin B-12) [Vitamin B-12] 5,000 mcg PO DAILY 10/10/23 [History] Ferrous Sulfate [Feosol] 325 mg PO DAILY 10/10/23 [History] Folate 800 mcg PO DAILY 10/10/23 [History] Follow up Appointment(s)/Referral(s): John Duarte MD [Primary Care Provider] - 1-2 days
[2023-10-15] MEDS ORDERED: VANCOMYCIN 1,500 MG in SODIUM CHLORIDE 0.9% 500 ML 500 ML IVPB SCH (01:00)
== END 2023-10-14 12:30 | disposition expired | DRG 871 ==
LOC: EC 03:05 → SUPCPDRO 03:05 → 3SCARD 05:32 → 2SICU 10-13 01:49
PROVIDERS: ADMIT Internal Medicine; ATTEND Internal Medicine
PROC: 02HV33Z Insertion of Infusion Device into Superior Vena Cava, Percutaneous Approach (ICD-10-PCS; principal; 2023-10-12)
PROC: 0BH17EZ Insertion of Endotracheal Airway into Trachea, Via Natural or Artificial Opening (ICD-10-PCS; 2023-10-13)
PROC: 5A1945Z Respiratory Ventilation, 24-96 Consecutive Hours (ICD-10-PCS; 2023-10-13)
PROC: 3E043XZ Introduction of Vasopressor into Central Vein, Percutaneous Approach (ICD-10-PCS; 2023-10-13)
DX: A41.02 Sepsis due to Methicillin resistant Staphylococcus aureus (principal); I50.43 Acute on chronic combined systolic (congestive) and diastolic (congestive) heart failure; J96.01 Acute respiratory failure with hypoxia; N17.0 Acute kidney failure with tubular necrosis; R65.21 Severe sepsis with septic shock; I63.40 Cerebral infarction due to embolism of unspecified cerebral artery; I13.0 Hypertensive heart and chronic kidney disease with heart failure and stage 1 through stage 4 chronic kidney disease, or unspecified chronic kidney disease; I48.19 Other persistent atrial fibrillation; I42.9 Cardiomyopathy, unspecified; Z66 Do not resuscitate; R57.0 Cardiogenic shock; Z51.5 Encounter for palliative care; N18.32 Chronic kidney disease, stage 3b; R29.717 NIHSS score 17; D69.6 Thrombocytopenia, unspecified; D63.1 Anemia in chronic kidney disease; E87.5 Hyperkalemia; E78.5 Hyperlipidemia, unspecified; I08.0 Rheumatic disorders of both mitral and aortic valves; I25.10 Atherosclerotic heart disease of native coronary artery without angina pectoris; Z79.01 Long term (current) use of anticoagulants; Z91.011 Allergy to milk products; Z91.013 Allergy to seafood; Z79.82 Long term (current) use of aspirin; Z79.899 Other long term (current) drug therapy; Z86.79 Personal history of other diseases of the circulatory system; Z95.1 Presence of aortocoronary bypass graft; Z95.3 Presence of xenogenic heart valve; Z11.52 Encounter for screening for COVID-19
CPT/HCPCS: 36415; 36600; 70450; 70496; 70498; 71045; 80048; 80053; 81001; 82805; 83735; 83880; 84145; 84484; 85025; 85027; 85610; 85652; 85730; 86140; 87040; 87070; 87077; 87186; 87205; 87636; 93005; 93306; 94002; 94003; 94640; 96374; 99285